=== PATIENT | female | born 1930 | race Caucasian/White ===

== ENCOUNTER 2017-11-19 15:38 | Inpatient (IN) | payer OTHER ==
[~2017-11-19] VITALS: Ht 157.5 cm; Wt 87.1 kg
[2017-11-19] MEDS ORDERED: SODIUM CHLORIDE 0.9% 1000ML 500 ML IV STA (16:02)
[2017-11-19] MEDS ORDERED: IPRATROPIUM BROMIDE NEB SOLN 0.02% 2.5 ML VIAL INH STA (16:02)
[2017-11-19] MEDS ORDERED: CEFTRIAXONE SOD INJ 1 GM ADDVIAL IV STA (16:02)
[2017-11-19] MEDS ORDERED: LEVALBUTEROL 1.25MG/0.5ML NEB INH STA (16:02)
[2017-11-19] MEDS ORDERED: METHYLPREDNISOLONE 125 MG VIAL IV STA (16:02)
[2017-11-19 16:15] LABS: BASO % 0.5 %; BASO ABS # 0.03 K/uL (0-0.2); EOS % 0.2 %; EOS ABS # 0.01 K/uL (0-0.5); HEMATOCRIT 43.2 % (37-47); HEMOGLOBIN 14.3 g/dL (12.0-16.0); IG# 0.03 K/uL (0.00-0.02); LYMPH % 30.1 %; LYMPH ABS # 1.91 K/uL (1.2-3.4); MEAN CELL VOLUME 92.3 fL (80-100); MEAN CORPUSCULAR HEMOGLOBIN 30.6 pg (25-34); MEAN CORPUSCULAR HGB CONC 33.1 g/dl (32-36); MEAN PLATELET VOLUME 10.3 fL (7.4-10.4); MONO % 15.4 %; MONO ABS # 0.98 K/uL (0.11-0.59); NEUT % 53.3 %; NEUT ABS # 3.39 K/uL (1.4-6.5); PLATELET COUNT 287 K/uL (130-400); RED CELL DISTRIBUTION WIDTH CV 13.2 % (11.5-14.5); RED CELL DISTRIBUTION WIDTH SD 44.3 fL (36.4-46.3); WHITE BLOOD COUNT 6.35 K/uL (4.8-10.8)
--- NOTE | 2017-11-19 16:16 | EMERGENCY ROOM VISIT NOTE ---
History Report prepared by Benito: Cole Gaitan Under the Supervision of: Dr. Kamran Haskins M.D. First contact with patient: 15:57 Chief Complaint: SHORTNESS OF BREATH Stated Complaint: SOB History of Present Illness This HPI is limited secondary to the dementia of the patient. The patient is an 87 year old female who presents to the Emergency Room with complaints of worsening shortness of breath that began 1 week ago. Per the patient's daughter , she became unusually short of breath 1 week ago and began to wheeze significantly this past Wednesday, 3 days ago. She has also had a wet cough, but she is not able to bring any mucous up. She has experienced two falling episodes in the past week, one of which was witnessed by the daughter who notes she hit the back of her head on the ground. The patient was at [facility] for a visit today, when the heard about the falls and worsening shortness of breath they suggested she come to the ED for further testing. She did receive a Nebulizer breathing treatment at this visit. The patient lives with the daughter who does not feel she is safe to go home today. The daughter denies ever being told the patient has atrial fibrillation. 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 A total of 10 systems reviewed and were otherwise negative. Past Medical & Surgical Medical Problems: (1) Dementia (2) Depression Dementia Family History Omitted Secondary to Age Social History Smoking Status: Former Smoker Drug Use: none Housing Status: lives with family Occupation Status: unemployed Current/Historical Medications Scheduled Aspirin (Aspirin Ec), 81 MG PO DAILY Atenolol (Tenormin), 25 MG PO DAILY Buspirone Hcl (Buspirone Hcl), 10 MG PO BID Citalopram Hydrobromide (Citalopram Hydrobromide), 1 TAB PO DAILY Donepezil Hydrochloride (Aricept), 10 MG PO DAILY Lisinopril (Zestril), 2.5 MG PO DAILY Triamterene/Hctz (Triamterene/Hctz 37.5-25MG), 1 TAB PO 5XWK Scheduled PRN Acetaminophen (Tylenol), 1,000 MG PO BID PRN for Pain Alprazolam (Xanax), 0.5 MG PO BID PRN for Anxiety Allergies Coded Allergies: No Known Allergies (Unverified , 11/19/17) Physical Exam Vital Signs Date Time Temp Pulse Resp B/P (MAP) Pulse Ox O2 Delivery O2 Flow Rate FiO2 11/19/17 20:50 84 20 180/78 94 Room Air 11/19/17 18:56 76 24 164/88 94 Room Air 11/19/17 17:16 70 22 168/53 97 Room Air 11/19/17 16:33 76 18 96 Room Air 11/19/17 16:32 96 Room Air 11/19/17 16:30 93 Room Air 11/19/17 16:12 73 11/19/17 16:02 Room Air 11/19/17 15:41 37.0 78 20 157/72 95 Room Air Physical Exam GENERAL: Patient is in no acute distress. HEENT: No acute trauma, normocephalic atraumatic, mucous membranes moist, no nasal congestion, no scleral icterus. NECK: No stridor, no adenopathy, no meningismus, trachea is midline. LUNGS: There is wheezing and crackles bilaterally with diminished breath sounds throughout. Breath sounds are equal. There is no respiratory distress. HEART: The patient has an irregularly irregular rhythm without murmurs. Rate is normal. ABDOMEN: Soft, nontender, bowel sounds positive, no hernias, no peritonitis. EXTREMITIES: No cyanosis or edema, full range of motion of all the joints without pain or difficulty, no signs for acute trauma. NEUROLOGIC: Mild dementia noted. no acute motor or sensory deficits, no focal weakness. SKIN: No rash, no jaundice, no diaphoresis. Medical Decision & Procedures ER Provider Diagnostic Interpretation: Radiology results as stated below per my review and radiologist interpretation: CHEST ONE VIEW PORTABLE CLINICAL HISTORY: 87 years-old Female presenting with EVALUATE ALTERED MENTAL STATUS/WEAKNESS. TECHNIQUE: Portable upright AP view of the chest was obtained. COMPARISON: None. FINDINGS: Atherosclerosis of aortic arch. Cardiac silhouette enlarged. Lungs and pleural spaces clear. Multiple old left rib fractures noted. Osteopenia may be present. IMPRESSION: 1. Cardiomegaly. Otherwise no acute cardiopulmonary disease. Electronically signed by: Jaquan Cat M.D. 11/19/2017 4:38 PM Dictated Date/Time: 11/19/2017 4:36 PM . HEAD WITHOUT CONTRAST (CT) CLINICAL HISTORY: 87 years-old Female presenting with EVALUATE ALTERED MENTAL STATUS/WEAKNESS. TECHNIQUE: Multidetector CT imaging of the head was performed without the use of intravenous contrast. IV contrast: None. A dose lowering technique was used consistent with the principles of ALARA (as low as reasonably achievable). COMPARISON: None. CT DOSE (mGy.cm): The estimated cumulative dose is 537.48 mGy.cm. FINDINGS: Motion Picture Actor topogram: Unremarkable. Proportional ventricular and sulcal prominence, likely age-related parenchymal volume loss. Periventricular and subcortical white matter hypoattenuation, nonspecific but likely indicative of chronic small vessel ischemic change. 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 No mass effect or midline shift. No hemorrhage or acute territorial infarct. No extra-axial fluid collection. Mild mucosal thickening in the ethmoid air cells. Calvarium intact. Left council lens is absent. IMPRESSION: 1. Chronic small vessel ischemic change. No acute intracranial abnormality. Electronically signed by: Jaquna Cat M.D. 11/19/2017 5:14 PM Dictated Date/Time: 11/19/2017 5:10 PM Laboratory Results 11/19/17 16:00 Red Blood Count 4.68, Mean Corpuscular Volume 92.3, Mean Corpuscular Hemoglobin 30.6, Mean Corpuscular Hemoglobin Concent 33.1, Mean Platelet Volume 10.3, Neutrophils (%) (Auto) 53.3, Lymphocytes (%) (Auto) 30.1, Monocytes (%) (Auto) 15.4, Eosinophils (%) (Auto) 0.2, Basophils (%) (Auto) 0.5, Neutrophils # (Auto ) 3.39, Lymphocytes # (Auto) 1.91, Monocytes # (Auto) 0.98, Eosinophils # (Auto ) 0.01, Basophils # (Auto) 0.03 11/19/17 16:00 Test 11/19/17 16:00 11/19/17 16:28 11/19/17 16:51 White Blood Count 6.35 K/uL (4.8-10.8) Red Blood Count 4.68 M/uL (4.2-5.4) Hemoglobin 14.3 g/dL (12.0-16.0) Hematocrit 43.2 % (37-47) Mean Corpuscular Volume 92.3 fL (80-100) Mean Corpuscular Hemoglobin 30.6 pg (25-34) Mean Corpuscular Hemoglobin Concent 33.1 g/dl (32-36) Platelet Count 287 K/uL (130-400) Mean Platelet Volume 10.3 fL (7.4-10.4) Neutrophils (%) (Auto) 53.3 % Lymphocytes (%) (Auto) 30.1 % Monocytes (%) (Auto) 15.4 % Eosinophils (%) (Auto) 0.2 % Basophils (%) (Auto) 0.5 % Neutrophils # (Auto) 3.39 K/uL (1.4-6.5) Lymphocytes # (Auto) 1.91 K/uL (1.2-3.4) Monocytes # (Auto) 0.98 K/uL (0.11-0.59) Eosinophils # (Auto) 0.01 K/uL (0-0.5) Basophils # (Auto) 0.03 K/uL (0-0.2) RDW Standard Deviation 44.3 fL (36.4-46.3) RDW Coefficient of Variation 13.2 % (11.5-14.5) Immature Granulocyte % (Auto) 0.5 % Immature Granulocyte # (Auto) 0.03 K/uL (0.00-0.02) Prothrombin Time 10.0 SECONDS (9.0-12.0) Prothromb Time International Ratio 1.0 (0.9-1.1) Activated Partial Thromboplast Time 28.4 SECONDS (21.0-31.0) Partial Thromboplastin Ratio 1.1 Anion Gap 9.0 mmol/L (3-11) Est Creatinine Clear Calc Drug Dose 16.8 ml/min Estimated GFR () 20.2 Estimated GFR (Non- 17.4 BUN/Creatinine Ratio 14.4 (10-20) Calcium Level 8.5 mg/dl (8.5-10.1) Magnesium Level 2.3 mg/dl (1.8-2.4) Total Bilirubin 0.3 mg/dl (0.2-1) Aspartate Amino Transf (AST/SGOT) 28 U/L (15-37) Alanine Aminotransferase (ALT/SGPT) 23 U/L (12-78) Alkaline Phosphatase 72 U/L (45-117) Total Creatine Kinase 157 U/L (26-192) Troponin I < 0.015 ng/ml (0-0.045) Total Protein 8.3 gm/dl (6.4-8.2) Albumin 3.5 gm/dl (3.4-5.0) Globulin 4.8 gm/dl (2.5-4.0) Albumin/Globulin Ratio 0.7 (0.9-2) Thyroid Stimulating Hormone (TSH) 2.000 uIu/ml (0.300-4.500) Influenza Type A Antigen Neg for Influ A (NEG) Influenza Type B Antigen Neg for Influ B (NEG) Urine Color DK YELLOW Urine Appearance CLOUDY (CLEAR) Urine pH 5.0 (4.5-7.5) Urine Specific Beatrice 1.026 (1.000-1.030) Urine Protein 1+ (NEG) Urine Glucose (UA) NEG (NEG) Urine Ketones TRACE (NEG) Urine Occult Blood NEG (NEG) Urine Nitrite NEG (NEG) Urine Bilirubin NEG (NEG) Urine Urobilinogen NEG (NEG) Urine Leukocyte Esterase NEG (NEG) Urine WBC (Auto) 1-5 /hpf (0-5) Urine RBC (Auto) 0-4 /hpf (0-4) Urine Hyaline Casts (Auto) 10-30 /lpf (0-5) Urine Epithelial Cells (Auto) >30 /lpf (0-5) Urine Bacteria (Auto) NEG (NEG) Urine Renal Epithelial Cells 0-5 /lpf (0-5) Laboratory results reviewed by me. Medications Administered Medications (Trade) Dose Ordered Sig/Dotty Route Start Time Stop Time Status Last Admin Dose Admin Sodium Chloride 500 ml @ 999 mls/hr Q31M STAT IV 11/19/17 16:02 11/19/17 16:32 DC 11/19/17 16:02 999 MLS/HR Levalbuterol (Xopenex 1.25MG/ 0.5ML Neb) 1.25 mg NOW STAT INH 11/19/17 16:02 11/19/17 16:06 DC 11/19/17 16:02 1.25 MG Ipratropium Kerman (Atrovent 0.02% 0.5MG/2.5ML Neb) 0.5 mg NOW STAT INH 11/19/17 16:02 11/19/17 16:07 DC 11/19/17 16:26 0.5 MG Methylprednisolone Sodium Succinate (Solu-Medrol IV) 60 mg NOW STAT IV 11/19/17 16:02 11/19/17 16:07 DC 11/19/17 16:26 60 MG Ceftriaxone Sodium (Rocephin Inj) 1 gm NOW STAT IV 11/19/17 16:02 11/19/17 16:07 DC 11/19/17 16:26 1 GM Potassium Chloride (Klor-Con M10) 40 meq NOW STAT PO 11/19/17 16:38 11/19/17 16:40 DC 11/19/17 17:12 40 MEQ Sodium Chloride 500 ml @ 999 mls/hr Q31M STAT IV 11/19/17 16:39 11/19/17 17:09 DC 11/19/17 17:12 999 MLS/HR ECG Indication: SOB/dyspnea Rate (beats per minute): 73 Rhythm: atrial fibrillation Findings: nonspecific-ST abn, RBBB, no acute ischemic change Comparison ECG Date: no prior available Change: Patient's electrocardiogram per my interpretation. ED Course 1557: The patient was evaluated in room B8. A complete history and physical exam was performed. 1602: Ordered Rocephin 1 gm IV, Solu-Medrol IV 60 mh IV, Ipratropium Kerman 0.5 mg INH, Levaluterol 1.25 mg INH, Sodium Chloride 500 mL @ 999 mL/hr IV. 1638: Ordered Potassium Chloride 40 meq PO, Sodium Chloride 500 mL @ 999 mL/hr IV. 1731: I discussed the case with Gabriela Moore PA-C. She will evaluate the patient for further treatment. 1735: I reevaluated the patient at this time. Her and her daughter are agreeable to admission. Medical Decision Differential Diagnosis includes; intracranial bleed, skull fracture, dehydration , electrolyte imbalance, anemia, UTI, bronchitis, pneumonia, CHF, influenza, new onset atrial fibrillation. There is no leukocytosis or concerning anemia. Renal panel testing shows a high creatinine at 2.4, she has a low potassium at 2.7. There was no hepatitis. No coagulopathy. The patient appears to be in a euthyroid state. EKG shows A. fib with a right bundle-branch block, no acute ischemia. Cardiac enzyme testing times one is not consistent with acute cardiac injury. Of note, the A. fib noted today may be new-the family has no recollection of hearing the term atrial fibrillation or A. fib before. Brain CT shows no acute bleed or mass effect. Chest x-ray does not show pneumonia or CHF. Influenza testing was negative. The patient presents with cough, congestion and wheezing. She is weak and has fallen a few times. She is in no condition to be discharged home. The patient was given a Xopenex Atrovent neb, IV Solu-Medrol, IV ceftriaxone. She received IV saline. The patient received a dose of oral potassium. Admission/observation is warranted, I talked to the family, I spoke with case management. The on-call hospitalist was consulted. Head Trauma GCS Score: 14 Medication Reconcilliation Current Medication List: was personally reviewed by me Blood Pressure Screening Patient's blood pressure: Elevated blood pressure Referred to Hospitalist Consults Time Called: 1728 Consulting Physician: Gabriela Moore PA-C Returned Call: 1731 I discussed the case with Gabriela Moore PA-C. She will evaluate the patient for further treatment. Impression Primary Impression: Acute bronchitis Additional Impressions: SOB (shortness of breath) Falling Head trauma Dehydration Hypokalemia Atrial fibrillation Scribe Attestation The scribe's documentation has been prepared under my direction and personally reviewed by me in its entirety. I confirm that the note above accurately reflects all work, treatment, procedures, and medical decision making performed by me. Departure Information Dispostion Being Evaluated By Hospitalist Referrals Josselyn REARDON M.D. (PCP) Patient Instructions My [facility] Problem Qualifiers
[2017-11-19 16:33] VITALS: PULSE 76; O2SAT 96
[2017-11-19 16:33] LABS: PTT PATIENT 28.4 SECONDS (21.0-31.0)
[2017-11-19] MEDS ORDERED: LISI-789 PO (16:34)
[2017-11-19] MEDS ORDERED: ATEN-173 PO (16:34)
[2017-11-19] MEDS ORDERED: ACET-1256 PO (16:34)
[2017-11-19] MEDS ORDERED: CITA20TA4 PO (16:34)
[2017-11-19] MEDS ORDERED: TRIATAB3 PO (16:34)
[2017-11-19] MEDS ORDERED: DONE10TA12 PO (16:34)
[2017-11-19] MEDS ORDERED: BUSP-8 PO (16:34)
[2017-11-19] MEDS ORDERED: ASPI81TA28 PO (16:34)
[2017-11-19] MEDS ORDERED: ALPR-411 PO (16:34)
[2017-11-19 16:37] LABS: ALBUMIN 3.5 gm/dl (3.4-5.0); ALT/SGPT 23 U/L (12-78); AST/SGOT 28 U/L (15-37); BLOOD UREA NITROGEN 35 mg/dl (7-18); CALCIUM 8.5 mg/dl (8.5-10.1); CARBON DIOXIDE 27 mmol/L (21-32); CREATININE 2.42 mg/dl (0.60-1.20); GLUCOSE 102 mg/dl (70-99); POTASSIUM 2.7 mmol/L (3.5-5.1); SODIUM 132 mmol/L (136-145)
[2017-11-19] MEDS ORDERED: POTASSIUM CHLORIDE 10 MEQ TABCR PO STA (16:38)
[2017-11-19] MEDS ORDERED: SODIUM CHLORIDE 0.9% 500ML 500 ML IV STA (16:39)
--- NOTE | 2017-11-19 16:39 | DIAGNOSTIC IMAGING REPORT ---
CHEST ONE VIEW PORTABLE CLINICAL HISTORY: 87 years-old Female presenting with EVALUATE ALTERED MENTAL STATUS/WEAKNESS. TECHNIQUE: Portable upright AP view of the chest was obtained. COMPARISON: None. FINDINGS: Atherosclerosis of aortic arch. Cardiac silhouette enlarged. Lungs and pleural spaces clear. Multiple old left rib fractures noted. Osteopenia may be present. IMPRESSION: 1. Cardiomegaly. Otherwise no acute cardiopulmonary disease. Electronically signed by: Jaquan Cat M.D. 11/19/2017 4:38 PM Dictated Date/Time: 11/19/2017 4:36 PM
[2017-11-19 16:47] LABS: ALKALINE PHOSPHATASE 72 U/L (45-117); TOTAL PROTEIN 8.3 gm/dl (6.4-8.2)
[2017-11-19 17:01] LABS: INFLUENZA B ANTIGEN Neg for Influ B (NEG)
--- NOTE | 2017-11-19 17:15 | DIAGNOSTIC IMAGING REPORT ---
HEAD WITHOUT CONTRAST (CT) CLINICAL HISTORY: 87 years-old Female presenting with EVALUATE ALTERED MENTAL STATUS/WEAKNESS. TECHNIQUE: Multidetector CT imaging of the head was performed without the use of intravenous contrast. IV contrast: None. A dose lowering technique was used consistent with the principles of ALARA (as low as reasonably achievable). COMPARISON: None. CT DOSE (mGy.cm): The estimated cumulative dose is 537.48 mGy.cm. 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 Proportional ventricular and sulcal prominence, likely age-related parenchymal volume loss. Periventricular and subcortical white matter hypoattenuation, nonspecific but likely indicative of chronic small vessel ischemic change. 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 No mass effect or midline shift. No hemorrhage or acute territorial infarct. No extra-axial fluid collection. Mild mucosal thickening in the ethmoid air cells. Calvarium intact. Left yocha dehe lens is absent. IMPRESSION: 1. Chronic small vessel ischemic change. No acute intracranial abnormality. Electronically signed by: Jaquan Cat M.D. 11/19/2017 5:14 PM Dictated Date/Time: 11/19/2017 5:10 PM
[2017-11-19] MEDS ORDERED: ACETAMINOPHEN 325 MG TAB PO PRN (20:00)
[2017-11-19] MEDS: ALBUT/IPRATROP 3MG/0.5MG NEB 3 ML VIAL INH SCH (20:00)
[2017-11-19] MEDS ORDERED: ALPRAZOLAM 0.5 MG TAB PO PRN (20:00)
[2017-11-19] MEDS ORDERED: ACETAMINOPHEN 500 MG TAB PO PRN (20:00)
[2017-11-19] MEDS ORDERED: POTASSIUM CHLORIDE 20 MEQ TABCR PO STA (20:43)
--- NOTE | 2017-11-19 20:45 | History and Physical ---
History & Physical Date & Time of Service: Nov 19, 2017 at 20:06 Chief Complaint: SOB Primary Care Physician: Josselyn REARDON M.D. History of Present Illness Source: patient, clinic records, hospital records This is an 87 year old female with a PMH of dementia, depression/anxiety, HTN, CKD stage 3 - presented to the urgent care facility at [facility] due to patient' s daughter bringing her in with a cough/chest congestion. Patient and daughter live together and as per records, they do not get along. As per clinic records, patient is more depressed than usual and she is falling more often. Records indicate that the patient was sent to the ER for a head CT due to multiple falls as well as a psychiatric evaluation. During my exam, patient states that she is doing fine, does not know why she is being forced to come to the hospital by her daughter. Unfortunately, daughter is not in the room for a history. Patient states she has some congestion, but feels fine overall. Denies depression or suicidal ideation. Geriatric Assessment Lives with - daughter Ambulation - on her own Incontinence - denies incontinence, though records indicate she has incontinence Family Support - daughter Nutrition - no issues with food, cooks on her own Mental Status - underlying dementia Depression - worsening depression as per family ADLs - performs her own ADLs Past Medical/Surgical History Medical Problems: (1) Dementia Status: Chronic Social History Smoking Status: Former Smoker Drug Use: none Occupational Status: unemployed Multi-Drug Resistant Organisms History of MDRO: No Allergies Coded Allergies: No Known Allergies (Unverified , 11/19/17) Home Medications Scheduled Aspirin (Aspirin Ec), 81 MG PO DAILY Atenolol (Tenormin), 25 MG PO DAILY Buspirone Hcl (Buspirone Hcl), 10 MG PO BID Citalopram Hydrobromide (Citalopram Hydrobromide), 1 TAB PO DAILY Donepezil Hydrochloride (Aricept), 10 MG PO DAILY Lisinopril (Zestril), 2.5 MG PO DAILY Triamterene/Hctz (Triamterene/Hctz 37.5-25MG), 1 TAB PO 5XWK Scheduled PRN Acetaminophen (Tylenol), 1,000 MG PO BID PRN for Pain Alprazolam (Xanax), 0.5 MG PO BID PRN for Anxiety Review of Systems Constitutional: No fever, No chills, No weakness, No fatigue Respiratory: + cough, + sputum, No wheezing, No shortness of breath, No dyspnea on exertion, No dyspnea at rest, No hemoptysis Cardiovascular: No chest pain, No edema, No palpitations Abdomen: No pain, No nausea, No vomiting, No diarrhea, No constipation, No GI bleeding Musculoskeletal: No joint pain, No muscle pain Genitourinary - Female: No dysuria, No urinary frequency, No urinary urgency, No urinary incontinence, No urinary retention, No hematuria Neurologic: No memory loss, No paralysis, No weakness, No numbness/tingling, No balance problems Psychiatric: No depression symptoms, No anxiety, No insomnia Endocrine: No fatigue Hematologic / Lymphatic: No abnormal bleeding/bruising Integumentary: No rash Allergic / Immunologic: No environmental allergies, No seasonal allergies Physical Exam Vital Signs Date Time Temp Pulse Resp B/P (MAP) Pulse Ox O2 Delivery O2 Flow Rate FiO2 11/19/17 18:56 76 24 164/88 94 Room Air 11/19/17 17:16 70 22 168/53 97 Room Air 11/19/17 16:33 76 18 96 Room Air 11/19/17 16:32 96 Room Air 11/19/17 16:30 93 Room Air 11/19/17 16:12 73 11/19/17 16:02 Room Air 11/19/17 15:41 37.0 78 20 157/72 95 Room Air General Appearance: no apparent distress, + obese, + pertinent finding (mild underlying dementia noted during exam) Head: normocephalic, atraumatic Eyes: normal inspection ENT: + pertinent finding (+hard of hearing) Neck: supple Respiratory/Chest: no respiratory distress, no accessory muscle use, + rhonchi Cardiovascular: no murmur, + irregularly irregular (regular rate) Abdomen/GI: normal bowel sounds, non tender, soft Extremities/Musculoskelatal: normal capillary refill, no pedal edema Neurologic/Psych: 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 II-XII nml as tested, no motor/sensory deficits, alert, normal mood/affect, + disoriented Skin: normal color Lymphatic: no adenopathy Diagnostics Laboratory Results Results Past 24 Hours Test 11/19/17 16:00 11/19/17 16:28 11/19/17 16:51 Range/Units White Blood Count 6.35 4.8-10.8 K/uL Red Blood Count 4.68 4.2-5.4 M/uL Hemoglobin 14.3 12.0-16.0 g/dL Hematocrit 43.2 37-47 % Mean Corpuscular Volume 92.3 80-100 fL Mean Corpuscular Hemoglobin 30.6 25-34 pg Mean Corpuscular Hemoglobin Concent 33.1 32-36 g/dl Platelet Count 287 130-400 K/uL Mean Platelet Volume 10.3 7.4-10.4 fL Neutrophils (%) (Auto) 53.3 % Lymphocytes (%) (Auto) 30.1 % Monocytes (%) (Auto) 15.4 % Eosinophils (%) (Auto) 0.2 % Basophils (%) (Auto) 0.5 % Neutrophils # (Auto) 3.39 1.4-6.5 K/uL Lymphocytes # (Auto) 1.91 1.2-3.4 K/uL Monocytes # (Auto) 0.98 0.11-0.59 K/uL Eosinophils # (Auto) 0.01 0-0.5 K/uL Basophils # (Auto) 0.03 0-0.2 K/uL RDW Standard Deviation 44.3 36.4-46.3 fL RDW Coefficient of Variation 13.2 11.5-14.5 % Immature Granulocyte % (Auto) 0.5 % Immature Granulocyte # (Auto) 0.03 0.00-0.02 K/uL Prothrombin Time 10.0 9.0-12.0 SECONDS Prothromb Time International Ratio 1.0 0.9-1.1 Activated Partial Thromboplast Time 28.4 21.0-31.0 SECONDS Partial Thromboplastin Ratio 1.1 Sodium Level 132 136-145 mmol/L Potassium Level 2.7 3.5-5.1 mmol/L Chloride Level 96 98-107 mmol/L Carbon Dioxide Level 27 21-32 mmol/L Anion Gap 9.0 3-11 mmol/L Blood Urea Nitrogen 35 7-18 mg/dl Creatinine 2.42 0.60-1.20 mg/dl Est Creatinine Clear Calc Drug Dose 16.8 ml/min Estimated GFR () 20.2 Estimated GFR (Non- 17.4 BUN/Creatinine Ratio 14.4 10-20 Random Glucose 102 70-99 mg/dl Calcium Level 8.5 8.5-10.1 mg/dl Magnesium Level 2.3 1.8-2.4 mg/dl Total Bilirubin 0.3 0.2-1 mg/dl Aspartate Amino Transf (AST/SGOT) 28 15-37 U/L Alanine Aminotransferase (ALT/SGPT) 23 12-78 U/L Alkaline Phosphatase 72 45-117 U/L Total Creatine Kinase 157 26-192 U/L Troponin I < 0.015 0-0.045 ng/ml Total Protein 8.3 6.4-8.2 gm/dl Albumin 3.5 3.4-5.0 gm/dl Globulin 4.8 2.5-4.0 gm/dl Albumin/Globulin Ratio 0.7 0.9-2 Thyroid Stimulating Hormone (TSH) 2.000 0.300-4.500 uIu/ml Influenza Type A Antigen Neg for Influ A NEG Influenza Type B Antigen Neg for Influ B NEG Urine Color DK YELLOW Urine Appearance CLOUDY CLEAR Urine pH 5.0 4.5-7.5 Urine Specific [place] 1.026 1.000-1.030 Urine Protein 1+ NEG Urine Glucose (UA) NEG NEG Urine Ketones TRACE NEG Urine Occult Blood NEG NEG Urine Nitrite NEG NEG Urine Bilirubin NEG NEG Urine Urobilinogen NEG NEG Urine Leukocyte Esterase NEG NEG Urine WBC (Auto) 1-5 0-5 /hpf Urine RBC (Auto) 0-4 0-4 /hpf Urine Hyaline Casts (Auto) 10-30 0-5 /lpf Urine Epithelial Cells (Auto) >30 0-5 /lpf Urine Bacteria (Auto) NEG NEG Urine Renal Epithelial Cells 0-5 0-5 /lpf Microbiology Results 11/19/17 Blood Culture, Received Pending 11/19/17 Blood Culture, Received Pending Diagnostic Radiology HEAD WITHOUT CONTRAST (CT) CLINICAL HISTORY: 87 years-old Female presenting with EVALUATE ALTERED MENTAL STATUS/WEAKNESS. TECHNIQUE: Multidetector CT imaging of the head was performed without the use of intravenous contrast. IV contrast: None. A dose lowering technique was used consistent with the principles of ALARA (as low as reasonably achievable). COMPARISON: None. CT DOSE (mGy.cm): The estimated cumulative dose is 537.48 mGy.cm. 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 Proportional ventricular and sulcal prominence, likely age-related parenchymal volume loss. Periventricular and subcortical white matter hypoattenuation, nonspecific but likely indicative of chronic small vessel ischemic change. 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 No mass effect or midline shift. No hemorrhage or acute territorial infarct. No extra-axial fluid collection. Mild mucosal thickening in the ethmoid air cells. Calvarium intact. Left [place] lens is absent. IMPRESSION: 1. Chronic small vessel ischemic change. No acute intracranial abnormality. CHEST ONE VIEW PORTABLE CLINICAL HISTORY: 87 years-old Female presenting with EVALUATE ALTERED MENTAL STATUS/WEAKNESS. TECHNIQUE: Portable upright AP view of the chest was obtained. COMPARISON: None. FINDINGS: Atherosclerosis of aortic arch. Cardiac silhouette enlarged. Lungs and pleural spaces clear. Multiple old left rib fractures noted. Osteopenia may be present. IMPRESSION: 1. Cardiomegaly. Otherwise no acute cardiopulmonary disease. EKG Atrial fibrillation Right bundle branch block Impression Assessment and Plan This is an 87 year old female with a PMH of dementia, depression/anxiety, HTN, CKD stage 3 presented with multiple falls, cough, congestion Multiple Falls unsure of the cause; patient is denying any falls Head CT negative will obtain PT/OT discharge planning evaluation may need placement? will need to talk to daughter New Onset Atrial Fibrillation patient is currently in A. Fib, do not see this in her records previous EKG shows sinus bradycardia with first degree AV block for now, will continue atenolol, which is controlling her rates cannot anticoagulate due to concern about multiple falls Acute Kidney Injury superimposed on CKD stage 3 baseline creatinine is closer to 1.1-1.2 creatinine on admission = 2.54 will add IVFs, recheck creatinine in AM Depression/Anxiety worsening depression as per patient's daughter (see clinic notes) takes Xanax, BuSpar, and Celexa I will increase the Celexa dose to 40mg daily consulted mental health for further help she is denying suicidal ideation at this time Acute Bronchitis, possibly viral patient with rhonchi on exam, cough, congestion rapid flu negative; CXR with no acute findings will start doxy to cover any superimposed bacterial infection prednisone 40mg for any inflammation for a short course nebulizers as needed Hypokalemia replaced K recheck in AM, check Mg Dementia continue Aricept HTN hold Lisinopril due to SUMMER continue Atenolol DVT ppx Lovenox DNR VTE Prophylaxis VTE Risk Assessment Done? Y/N: Yes Risk Level: Moderate
[2017-11-19 22:00] VITALS: BP 198/82; PULSE 52; TEMP 37.1; O2SAT 94
[2017-11-19 22:10] VITALS: O2SAT 94; Ht 157.5 cm; Wt 87.1 kg
[2017-11-19] MEDS: SODIUM CHLORIDE 0.9% 1000ML 1,000 ML IV SCH (22:16)
[2017-11-19] MEDS ORDERED: AMLODIPINE BESYLATE 5 MG TAB PO ONE (22:30)
[2017-11-19] MEDS: ENOXAPARIN 30 MG/0.3 ML SYR SQ SCH (22:44)
[2017-11-19] MEDS: DOXYCYCLINE HYCLATE 100 MG CAP PO SCH (22:45)
[2017-11-19] MEDS ORDERED: IV FLUIDS COMPLETED PRN (23:45)
[2017-11-19 23:59] VITALS: BP 198/85; PULSE 71; TEMP 36.7; O2SAT 93
[2017-11-20] VITALS (9 sets, daily range): BP systolic 129–205; BP diastolic 58–108; PULSE 58–78; TEMP 36.4–37; O2SAT 92–99
[2017-11-20] MEDS: SODIUM CHLORIDE 0.9% 1000ML 1,000 ML IV SCH ×2 (05:59→16:52)
[2017-11-20 06:17] LABS: HEMATOCRIT 37.6 % (37-47); HEMOGLOBIN 12.5 g/dL (12.0-16.0); MEAN CELL VOLUME 90.8 fL (80-100); MEAN CORPUSCULAR HEMOGLOBIN 30.2 pg (25-34); MEAN CORPUSCULAR HGB CONC 33.2 g/dl (32-36); MEAN PLATELET VOLUME 10.1 fL (7.4-10.4); PLATELET COUNT 253 K/uL (130-400); RED CELL DISTRIBUTION WIDTH CV 13.2 % (11.5-14.5); RED CELL DISTRIBUTION WIDTH SD 43.8 fL (36.4-46.3); WHITE BLOOD COUNT 3.72 K/uL (4.8-10.8)
[2017-11-20 06:57] LABS: CALCIUM 8.5 mg/dl (8.5-10.1); CREATININE 1.72 mg/dl (0.60-1.20)
[2017-11-20] MEDS: ALBUT/IPRATROP 3MG/0.5MG NEB 3 ML VIAL INH SCH ×4 (07:24→19:41)
[2017-11-20] MEDS: CITALOPRAM 40 MG TAB PO SCH (08:14)
[2017-11-20] MEDS: ASPIRIN 81 MG ECTAB PO SCH (08:14)
[2017-11-20] MEDS: DOXYCYCLINE HYCLATE 100 MG CAP PO SCH (08:14)
[2017-11-20] MEDS: DONEPEZIL HCL 10 MG TAB PO SCH (08:14)
[2017-11-20] MEDS ORDERED: TRIAMTERENE/HCTZ 37.5/25MG TAB PO SCH (09:00)
[2017-11-20] MEDS ORDERED: LISINOPRIL 2.5 MG TAB PO SCH (09:00)
--- NOTE | 2017-11-20 09:21 | Psychiatric Consultation ---
Consultation Date of Consultation Nov 20, 2017. Identifying Data Rosita Ingram is a 87-year-old female admitted to the medical floor for cough and chest congestion. Pt has a PMH of dementia, depression/anxiety, HTN, CKD stage 3. Psychiatric consult requested due to worsening of depression. Chief Complaint "You get old, it gets boring". History of Present Illness Rosita Ingram is a 87-year-old female who was brought to the ED by her daughter for concerns regarding cough and chest congestion. Pt was admitted to the medical floor. Pt is seen on psychiatric consult service due to reported concerns from the patient's daughter about worsening of depression. HPI of the patient is limited due to level of dementia and patient reporting losing her hearing aids. Pt's ability to participate in obtaining history hindered significantly by hearing loss. Pt states she does not feel she has been depressed. She reports "you know, you get old, it gets boring". She states she does have increased frequently of remaining in bed, but reports she enjoys the time she spend there "cuddling with my dog". Pt is a poor historian with regard to medications, but feels that Celexa has been beneficial for her mood in the past. She denies awareness of medications taken for anxiety. Pt appears euthymic and states "I'm ready to get better so I can go home to my puppy." She denies suicidal ideation. PHQ-9 completed with a score of 0. From limited history, patient does not report depressive symptoms. Would be beneficial to gain collateral information from the patient's daughter to better assess history and more accurately manage concerns. Past Psychiatric History Current OP Treatment: no current treatment (PCP for medications) Prior OP Treatment: no prior treatment Prior Psych Hospitalizations: other (unable to assess) Past Medical/Surgical History History of Concussion/Seizure: Yes (head trauma from frequent falls) Allergies Allergies: Coded Allergies: No Known Allergies (Unverified , 11/19/17) Home Medications Scheduled Aspirin (Aspirin Ec), 81 MG PO DAILY Atenolol (Tenormin), 25 MG PO DAILY Buspirone Hcl (Buspirone Hcl), 10 MG PO BID Citalopram Hydrobromide (Citalopram Hydrobromide), 1 TAB PO DAILY Donepezil Hydrochloride (Aricept), 10 MG PO DAILY Lisinopril (Zestril), 2.5 MG PO DAILY Triamterene/Hctz (Triamterene/Hctz 37.5-25MG), 1 TAB PO 5XWK Scheduled PRN Acetaminophen (Tylenol), 1,000 MG PO BID PRN for Pain Alprazolam (Xanax), 0.5 MG PO BID PRN for Anxiety Smoking Use Smoking Status: Former Smoker Personal History Lives in: [place] with her daughter 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 Review of Systems Psych: denies symptoms other than stated above Constitutional: denied Cardiovascular: denied GI: denied Neurologic: denied Remainder of 10 body systems also reviewed and denied other than noted above. Examination Vital Signs Vital Signs Past 12 Hours Date Time Temp Pulse Resp B/P (MAP) Pulse Ox O2 Delivery O2 Flow Rate FiO2 11/20/17 07:52 Room Air 11/20/17 07:24 78 18 99 Room Air 11/20/17 07:16 37.0 60 20 129/58 (81) 92 Room Air 11/20/17 05:00 64 170/70 (103) 11/19/17 23:59 36.7 71 20 198/85 (122) 93 Room Air 11/19/17 23:45 Room Air 11/19/17 22:10 94 Room Air 11/19/17 22:00 37.1 52 20 198/82 (120) 94 Room Air Laboratory Results Last 24 Hours Test 11/19/17 16:00 11/19/17 16:28 11/19/17 16:51 11/20/17 05:50 White Blood Count 6.35 K/uL 3.72 K/uL Red Blood Count 4.68 M/uL 4.14 M/uL Hemoglobin 14.3 g/dL 12.5 g/dL Hematocrit 43.2 % 37.6 % Mean Corpuscular Volume 92.3 fL 90.8 fL Mean Corpuscular Hemoglobin 30.6 pg 30.2 pg Mean Corpuscular Hemoglobin Concent 33.1 g/dl 33.2 g/dl Platelet Count 287 K/uL 253 K/uL Mean Platelet Volume 10.3 fL 10.1 fL Neutrophils (%) (Auto) 53.3 % Lymphocytes (%) (Auto) 30.1 % Monocytes (%) (Auto) 15.4 % Eosinophils (%) (Auto) 0.2 % Basophils (%) (Auto) 0.5 % Neutrophils # (Auto) 3.39 K/uL Lymphocytes # (Auto) 1.91 K/uL Monocytes # (Auto) 0.98 K/uL Eosinophils # (Auto) 0.01 K/uL Basophils # (Auto) 0.03 K/uL RDW Standard Deviation 44.3 fL 43.8 fL RDW Coefficient of Variation 13.2 % 13.2 % Immature Granulocyte % (Auto) 0.5 % Immature Granulocyte # (Auto) 0.03 K/uL Prothrombin Time 10.0 SECONDS Prothromb Time International Ratio 1.0 Activated Partial Thromboplast Time 28.4 SECONDS Partial Thromboplastin Ratio 1.1 Sodium Level 132 mmol/L 134 mmol/L Potassium Level 2.7 mmol/L 4.0 mmol/L Chloride Level 96 mmol/L 102 mmol/L Carbon Dioxide Level 27 mmol/L 25 mmol/L Anion Gap 9.0 mmol/L 7.0 mmol/L Blood Urea Nitrogen 35 mg/dl 30 mg/dl Creatinine 2.42 mg/dl 1.72 mg/dl Est Creatinine Clear Calc Drug Dose 16.8 ml/min 23.6 ml/min Estimated GFR () 20.2 30.5 Estimated GFR (Non- 17.4 26.3 BUN/Creatinine Ratio 14.4 17.6 Random Glucose 102 mg/dl 108 mg/dl Calcium Level 8.5 mg/dl 8.5 mg/dl Magnesium Level 2.3 mg/dl 2.1 mg/dl Total Bilirubin 0.3 mg/dl Aspartate Amino Transf (AST/SGOT) 28 U/L Alanine Aminotransferase (ALT/SGPT) 23 U/L Alkaline Phosphatase 72 U/L Total Creatine Kinase 157 U/L Troponin I < 0.015 ng/ml Total Protein 8.3 gm/dl Albumin 3.5 gm/dl Globulin 4.8 gm/dl Albumin/Globulin Ratio 0.7 Thyroid Stimulating Hormone (TSH) 2.000 uIu/ml Influenza Type A Antigen Neg for Influ A Influenza Type B Antigen Neg for Influ B Urine Color DK YELLOW Urine Appearance CLOUDY Urine pH 5.0 Urine Specific [place] 1.026 Urine Protein 1+ Urine Glucose (UA) NEG Urine Ketones TRACE Urine Occult Blood NEG Urine Nitrite NEG Urine Bilirubin NEG Urine Urobilinogen NEG Urine Leukocyte Esterase NEG Urine WBC (Auto) 1-5 /hpf Urine RBC (Auto) 0-4 /hpf Urine Hyaline Casts (Auto) 10-30 /lpf Urine Epithelial Cells (Auto) >30 /lpf Urine Bacteria (Auto) NEG Urine Renal Epithelial Cells 0-5 /lpf Mental Examination During interview pt is: cooperative, other (Alert) Appearance: appropriately dressed (in hospital gown), appeared stated age Eye contact is: good Motor behavior is: no abnormal motor movements (observed while in hospital bed) Speech: normal in rate, rhythm & volume Affect: euthymic Mood is: other ("fine") Thought process: goal directed, circumstantial Thought content: reality based without delusions Suicidal thought are: denied Homicidal thoughts are: denied Hallucinations: other (unable to assess, does not appear to be responding to internal stimuli) Cognition: language grossly intact, other (cognitive impairments, memory impaired) Intelligence estimated to be: average Insight: limited Judgement: limited Impression / Recommendations Impression 87-year-old female with a history of depression and anxiety currently treated with buspirone 10mg BID, alprazolam 0.5mg BID, and a recent increase to 40mg of citalopram upon hospitalization. Difficult to obtain appropriate history from the patient and will therefore attempt to gain collateral information from the patient's daughter if possible. At this point, medication changes that have been made are appropriate per patient's reported symptoms. Will offer additional recommendations if changes once history from daughter is obtained. Would recommended limited use of alprazolam as can increase risk of falls and adverse outcomes in individuals over 65y/o. Pt does not appear to be anxious at encounter today and is unable to provide history on her use of alprazolam at home. Inventory Assets Strengths: support from daughter Needs: history of dementia Risk Factors Assessment : Yes /single/: Yes Mental Health Diagnoses: Yes Substance use disorders: No Protective Factors Assessment : No Responsible for young children: No Employed: No Recommendations (1) Depression - Would agree with medication changes already put in place. Increasing citalopram is an appropriate plan. Will offer additional assistance as we are able to obtain more history from the patient's daughter. - Would recommend limited alprazolam prn use due to fall risk in patient's over 65 y/o as well as potential to worsen any breathing concerns. - Appreciate the opportunity to be involved in the care of this patient. Dr. Lewis has personally been involved in the review of the above case and development of recommendations.
[2017-11-20 17:14] LABS: INFLUENZA B PCR Neg for Influ B (NEG)
[2017-11-20] MEDS ORDERED: HydrALAZINE HCL 20 MG/ML VIAL IV. PRN ×2 (17:15→17:45)
--- NOTE | 2017-11-20 17:15 | Progress Note ---
Medicine Progress Note Date & Time of Visit: Nov 20, 2017 at 16:45 . Subjective CC: Follow-up visit for cough, weakness, and other problems. HPI: No fever. Persistent cough; somewhat SOB. No chest pain. No nausea or vomiting. No diarrhea. No urinary symptoms. Confused. ROS: as noted above in HPI . Objective Last 8 Hrs Date Time Temp Pulse Resp B/P (MAP) Pulse Ox O2 Delivery O2 Flow Rate FiO2 11/20/17 15:18 36.4 58 22 194/88 (123) 97 Room Air 11/20/17 14:56 60 18 95 Room Air 11/20/17 11:21 66 18 94 Room Air Physical Exam: General- lying in bed; no distress Lungs- scattered rhonchi, mild wheezing; no respiratory distress Cardiovascular- RRR; no gallop; no JVD; no pretibial edema Abdomen- + bowel sounds, soft, nontender Extremities- no cyanosis; no calf tenderness Neuro- alert, confused, only oriented to person (cannot name place, day of week , year, president) Skin- warm & dry . Laboratory Results: Last 24 Hours Test 11/20/17 05:50 11/20/17 16:26 White Blood Count 3.72 K/uL Red Blood Count 4.14 M/uL Hemoglobin 12.5 g/dL Hematocrit 37.6 % Mean Corpuscular Volume 90.8 fL Mean Corpuscular Hemoglobin 30.2 pg Mean Corpuscular Hemoglobin Concent 33.2 g/dl RDW Standard Deviation 43.8 fL RDW Coefficient of Variation 13.2 % Platelet Count 253 K/uL Mean Platelet Volume 10.1 fL Sodium Level 134 mmol/L Potassium Level 4.0 mmol/L Chloride Level 102 mmol/L Carbon Dioxide Level 25 mmol/L Anion Gap 7.0 mmol/L Blood Urea Nitrogen 30 mg/dl Creatinine 1.72 mg/dl Est Creatinine Clear Calc Drug Dose 23.6 ml/min Estimated GFR () 30.5 Estimated GFR (Non- 26.3 BUN/Creatinine Ratio 17.6 Random Glucose 108 mg/dl Calcium Level 8.5 mg/dl Magnesium Level 2.1 mg/dl Assessment & Plan 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 Check PCR. ACUTE KIDNEY INJURY / DEHYDRATION Hold triamterene / HCTZ. IV fluids. Follow. HYPERTENSION BP's elevated. Continue atenolol. Add IV hydralazine PRN. DEMENTIA Continue donepezil. Monitor for delirium. DEPRESSION Psychiatry consulted. FALLS PT / OT evals. VTE PROPHYLAXIS SQ enoxaparin. Ambulate. DISPOSITION To be determined. May need skilled care or rehab. Consult Case Management. Internal Medicine follow-up with Dr. Puentes. ADDENDUM: Influenza PCR + for influenza A. Start oseltamivir. Daughter given update by phone. . Current Inpatient Medications: Current Inpatient Medications Medications (Trade) Dose Ordered Sig/Dotty Route Start Time Stop Time Status Last Admin Dose Admin Enoxaparin Sodium (Lovenox Inj) 30 mg Q24H SQ 11/19/17 20:00 12/19/17 19:59 11/19/17 22:44 30 MG Acetaminophen (Tylenol Tab) 650 mg Q4H PRN PO 11/19/17 20:00 12/19/17 19:59 Prednisone (PredniSONE TAB) 40 mg DAILY PO 11/20/17 09:00 12/20/17 08:59 11/20/17 08:13 40 MG Albuterol/ Ipratropium (Duoneb) 3 ml QIDR INH 11/19/17 20:00 12/19/17 19:59 11/20/17 14:56 3 ML Doxycycline Hyclate (Vibramycin Cap) 100 mg BID PO 11/19/17 21:00 11/26/17 20:59 11/20/17 08:14 100 MG Alprazolam (Xanax Tab) 0.5 mg BID PRN PO 11/19/17 20:00 12/19/17 19:59 Aspirin (Ecotrin Tab) 81 mg DAILY PO 11/20/17 09:00 12/20/17 08:59 11/20/17 08:14 81 MG Atenolol (Tenormin Tab) 25 mg DAILY PO 11/20/17 09:00 12/20/17 08:59 11/20/17 08:14 25 MG Citalopram Hydrobromide (celeXA TAB) 40 mg DAILY PO 11/20/17 09:00 12/20/17 08:59 11/20/17 08:14 40 MG Donepezil HCl (Aricept Tab) 10 mg DAILY PO 11/20/17 09:00 3/5/18 08:59 11/20/17 08:14 10 MG Buspirone HCl (Buspar Tab) 10 mg BID PO 11/19/17 21:00 12/19/17 20:59 11/20/17 08:15 10 MG Sodium Chloride 1,000 ml @ 100 mls/hr Q10H IV 11/19/17 20:15 12/19/17 20:14 11/20/17 16:52 100 MLS/HR Miscellaneous (Iv Fluids Completed) 1 ea PRN PRN N/A 11/19/17 23:45 11/19/18 23:44
[2017-11-20 17:17] LABS: INFLUENZA A PCR POS for Influ A (NEG)
[2017-11-20] MEDS ORDERED: AMLODIPINE BESYLATE 5 MG TAB PO ONE (19:15)
[2017-11-20] MEDS ORDERED: OSELTAMIVIR PHOSPHATE SUSP 30 MG/5 ML UDP PO SCH (21:00)
[2017-11-20] MEDS: ENOXAPARIN 30 MG/0.3 ML SYR SQ SCH (21:55)
[2017-11-21] VITALS (7 sets, daily range): BP systolic 116–201; BP diastolic 58–96; PULSE 54–89; TEMP 36.2–36.7; O2SAT 91–96
[2017-11-21] MEDS: SODIUM CHLORIDE 0.9% 1000ML 1,000 ML IV SCH (03:06)
[2017-11-21] MEDS ORDERED: OLANZAPINE 10 MG/2.1 ML SDV IM STA (06:16)
--- NOTE | 2017-11-21 06:37 | Progress Note ---
Internal Med Progress Note Date of Service: Nov 21, 2017. Provider Documentation: Made aware by RN of increased agitation. AP Delirium on dementia Steroid regimen possibly contributory Zyprexa IM stat Hold Prednisone course until seen by AM provider. Vital Signs: Date Time Temp Pulse Resp B/P (MAP) Pulse Ox O2 Delivery O2 Flow Rate FiO2 11/21/17 07:37 89 18 96 Room Air 11/21/17 06:59 36.6 78 22 145/73 (97) 93 Room Air 11/21/17 02:30 64 116/58 (77) 11/21/17 00:15 Room Air 11/20/17 23:51 36.4 70 20 205/79 (121) 95 Room Air 11/20/17 19:41 78 18 96 Room Air 11/20/17 19:07 189/108 (135) 11/20/17 16:00 Room Air 11/20/17 15:18 36.4 58 22 194/88 (123) 97 Room Air 11/20/17 14:56 60 18 95 Room Air 11/20/17 11:21 66 18 94 Room Air Lab Results: Results Past 24 Hours Test 11/20/17 16:26 11/21/17 06:48 Range/Units Influenza Type A (RT-PCR) POS for Influ A NEG Influenza Type B (RT-PCR) Neg for Influ B NEG Sodium Level 135 136-145 mmol/L Potassium Level 3.6 3.5-5.1 mmol/L Chloride Level 104 98-107 mmol/L Carbon Dioxide Level 20 21-32 mmol/L Anion Gap 11.0 3-11 mmol/L Blood Urea Nitrogen 21 7-18 mg/dl Creatinine 1.29 0.60-1.20 mg/dl Est Creatinine Clear Calc Drug Dose 31.5 ml/min Estimated GFR () 43.1 Estimated GFR (Non- 37.2 BUN/Creatinine Ratio 16.3 10-20 Random Glucose 104 70-99 mg/dl Calcium Level 9.0 8.5-10.1 mg/dl
[2017-11-21 07:32] LABS: CREATININE 1.29 mg/dl (0.60-1.20); POTASSIUM 3.6 mmol/L (3.5-5.1)
[2017-11-21] MEDS: ALBUT/IPRATROP 3MG/0.5MG NEB 3 ML VIAL INH SCH (07:37)
[2017-11-21] MEDS: CITALOPRAM 40 MG TAB PO SCH (07:49)
[2017-11-21] MEDS: DONEPEZIL HCL 10 MG TAB PO SCH (07:49)
[2017-11-21] MEDS: ASPIRIN 81 MG ECTAB PO SCH (07:51)
[2017-11-21] MEDS: AMLODIPINE BESYLATE 5 MG TAB PO SCH (07:51)
[2017-11-21] MEDS ORDERED: ALPRAZOLAM 0.25 MG TAB PO ONE (10:22)
[2017-11-21] MEDS ORDERED: OLANZAPINE ZYDIS 5 MG ORALLY DIS. TAB PO PRN (10:30)
[2017-11-21] MEDS ORDERED: LEVALBUTEROL 0.63MG/3 ML NEB INH PRN (10:30)
--- NOTE | 2017-11-21 10:47 | Progress Note ---
Medicine Progress Note Date & Time of Visit: Nov 21, 2017 at 10:10 . Subjective CC: Follow-up visit for multiple problems. HPI: Confused / agitated last evening. Has one:one staffing. No fever. Persistent cough; denies SOB. Denies nausea, vomiting, diarrhea. ROS: as noted above in HPI . Objective Last 8 Hrs Date Time Temp Pulse Resp B/P (MAP) Pulse Ox O2 Delivery O2 Flow Rate FiO2 11/21/17 07:37 89 18 96 Room Air 11/21/17 06:59 36.6 78 22 145/73 (97) 93 Room Air Physical Exam: General- sitting in chair; no distress Lungs- scattered rhonchi, mild wheezing; no respiratory distress Cardiovascular- irregular; no gallop; no JVD; no pretibial edema Abdomen- + bowel sounds, soft, nontender Extremities- no cyanosis; no calf tenderness Neuro- alert, confused, delusional, worried that her dog is not being cared for , tangential, no apparent hallucinations Skin- warm & dry . 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 Received olanzapine- will DC because of delirium. ACUTE KIDNEY INJURY / DEHYDRATION Hold triamterene / HCTZ. Receiving IV fluids. Improved. Encourage PO fluids. Follow. ATRIAL FIBRILLATION Rate controlled on atenolol. High risk for anticoagulation. HYPERTENSION BP's elevated, probably because of delirium. Continue atenolol. Added amlodipine. Added IV hydralazine PRN. DEMENTIA / DELIRIUM Experiencing delirium. May potential contributing factors: acute illness change of environment benzo withdrawal- takes alprazolam at least 1-2 times a day at home oseltamivir prednisone ipratropium increased dose of citalopram Low dose alprazolam with caution. Low dose olanzapine PRN for severe delirium when pt's safety at risk and other measures ineffective. QTc < 500 msec. DC IV. DC anticholinergic meds. Resume previous dose of citalopram, consider escitalopram Continue donepezil. 1:1 staffing for patient safety. DEPRESSION Psychiatry consulted. FALLS PT / OT evals. VTE PROPHYLAXIS SQ enoxaparin. Ambulate. DISPOSITION To be determined. Anticipate need skilled care or rehab. Consult Case Management. Internal Medicine follow-up with Dr. Puentes. . Current Inpatient Medications: Current Inpatient Medications Medications (Trade) Dose Ordered Sig/Dotty Route Start Time Stop Time Status Last Admin Dose Admin Enoxaparin Sodium (Lovenox Inj) 30 mg Q24H SQ 11/19/17 20:00 12/19/17 19:59 11/20/17 21:55 30 MG Acetaminophen (Tylenol Tab) 650 mg Q4H PRN PO 11/19/17 20:00 12/19/17 19:59 Aspirin (Ecotrin Tab) 81 mg DAILY PO 11/20/17 09:00 12/20/17 08:59 11/21/17 07:51 81 MG Atenolol (Tenormin Tab) 25 mg DAILY PO 11/20/17 09:00 12/20/17 08:59 11/21/17 07:48 25 MG Donepezil HCl (Aricept Tab) 10 mg DAILY PO 11/20/17 09:00 12/20/17 08:59 11/21/17 07:49 10 MG Buspirone HCl (Buspar Tab) 10 mg BID PO 11/19/17 21:00 12/19/17 20:59 11/21/17 07:51 10 MG Sodium Chloride 1,000 ml @ 100 mls/hr Q10H IV 11/19/17 20:15 12/19/17 20:14 11/21/17 03:06 100 MLS/HR Miscellaneous (Iv Fluids Completed) 1 ea PRN PRN N/A 11/19/17 23:45 11/19/18 23:44 Oseltamivir Phosphate (Tamiflu Susp) 30 mg QPM PO 11/20/17 21:00 11/24/17 21:01 11/20/17 21:54 30 MG Hydralazine HCl (HydrALAZINE INJ) 10 mg Q6H PRN IV. 11/20/17 19:15 12/20/17 19:14 Amlodipine Besylate (Norvasc Tab) 5 mg QAM PO 11/21/17 09:00 12/21/17 08:59 11/21/17 07:51 5 MG Alprazolam (Xanax Tab) 0.25 mg BID PO 11/21/17 21:00 12/21/17 20:59 UNV Alprazolam (Xanax Tab) 0.25 mg Q6H PRN PO 11/21/17 10:30 12/21/17 10:29 UNV Alprazolam (Xanax Tab) 0.25 mg 1022 ONCE PO 11/21/17 10:22 11/21/17 10:23 UNV Citalopram Hydrobromide (celeXA TAB) 20 mg QAM PO 11/22/17 09:00 12/22/17 08:59 UNV Levalbuterol (Xopenex 0.63 Mg/ 3 Ml Neb) 0.63 mg Q6H PRN INH 11/21/17 10:30 12/21/17 10:29 UNV Olanzapine (Zyprexa Zydis Od Tab) 2.5 mg Q12 PRN PO 11/21/17 10:30 12/21/17 10:29 UNV
[2017-11-21] MEDS ORDERED: IPRATROPIUM BROMIDE/ALBUTEROL respimat INH INH SCH (13:00)
[2017-11-21] MEDS: ALPRAZOLAM 0.25 MG TAB PO PRN (16:26)
[2017-11-21] MEDS: HydrALAZINE HCL 20 MG/ML VIAL IV. PRN ×2 (16:27→23:43)
[2017-11-21] MEDS: ALPRAZOLAM 0.25 MG TAB PO SCH (20:31)
[2017-11-21] MEDS: ENOXAPARIN 30 MG/0.3 ML SYR SQ SCH (20:32)
[2017-11-22] VITALS (7 sets, daily range): BP systolic 126–191; BP diastolic 62–81; PULSE 59–88; TEMP 36.4–37; O2SAT 91–95
[2017-11-22 08:49] LABS: CALCIUM 8.5 mg/dl (8.5-10.1); CREATININE 1.35 mg/dl (0.60-1.20); POTASSIUM 3.7 mmol/L (3.5-5.1)
[2017-11-22] MEDS: ALPRAZOLAM 0.25 MG TAB PO SCH ×2 (09:19→21:00)
[2017-11-22] MEDS: ASPIRIN 81 MG ECTAB PO SCH (09:20)
[2017-11-22] MEDS: AMLODIPINE BESYLATE 5 MG TAB PO SCH (09:20)
[2017-11-22] MEDS: DONEPEZIL HCL 10 MG TAB PO SCH (09:21)
[2017-11-22] MEDS: CITALOPRAM 20 MG TAB PO SCH (09:21)
--- NOTE | 2017-11-22 13:44 | Psychiatric Progress Notes ---
Psychiatric Progress Note Date of Service Nov 22, 2017. Notes Rosita Ingram is a 87-year-old female admitted to the medical floor for cough and chest congestion. Patient has a PMH of dementia, depression/anxiety, HTN, CKD stage 3. Psychiatric consult requested due to worsening of depression. The patient was initially seen 11/20/2017, and is being seen today for follow- up. Patient is sleeping soundly and unarousable. Per one to one staff, she was awake earlier today, and has been calm and appropriate in her behavior today. Spoke with Dr. Spear yesterday, and he restarted low-dose alprazolam due to concerns for benzodiazepine withdrawal, and decreased her citalopram back to 20 mg daily. She had an episode of disorientation and agitation in the early interventionist hours yesterday, and received olanzapine 2.5 mg IM. Per staff, she has been calm since then. MSE: White female appearing her stated age, lying in bed sleeping. She is unarousable to multiple attempts. Assessment and plan: 1. Depression: Continue home dose of citalopram, and we have requested records from PCP. It is unclear if she sees a psychiatrist, or if her PCP prescribes her medications. We'll request that the liaison nurse contact her daughter regarding her concerns about changes in the patient's mood, as she herself denied feeling depressed on initial assessment. 2. Delirium: Treatment per primary team, may have been a component of benzodiazepine withdrawal so agree with resuming low-dose alprazolam. Would recommend this be tapered off slowly as an outpatient due to her age and the risk of cognitive impairment and falls. Olanzapine 2.5 mg as needed for agitation which does not respond to behavioral interventions.
[2017-11-22] MEDS: HydrALAZINE HCL 20 MG/ML VIAL IV. PRN (15:37)
[2017-11-22] MEDS: ALPRAZOLAM 0.25 MG TAB PO PRN (17:27)
--- NOTE | 2017-11-22 20:41 | Progress Note ---
Medicine Progress Note Date & Time of Visit: Nov 22, 2017 at ~ 16:00 . Subjective CC: Follow-up visit for multiple problems. HPI: Less agitated. Cough improved. Denies SOB. No chest pain. Denies nausea, vomiting, diarrhea. No fever. ROS: as noted above in HPI . Objective Last 8 Hrs Date Time Temp Pulse Resp B/P (MAP) Pulse Ox O2 Delivery O2 Flow Rate FiO2 11/22/17 17:09 174/71 (105) 11/22/17 16:00 Room Air 11/22/17 15:19 36.5 72 20 191/73 (112) 94 Room Air Physical Exam: General- lying in bed; no distress Lungs- scattered rhonchi, moderate wheezing; no respiratory distress Cardiovascular- irregular; no gallop; no JVD; no pretibial edema Abdomen- + bowel sounds, soft, nontender Extremities- no cyanosis; no calf tenderness Neuro- alert, confused (unable to state location, day of week, year) Skin- warm & dry . 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 Received olanzapine- stopped because of delirium. ACUTE KIDNEY INJURY / DEHYDRATION Holding triamterene / HCTZ. Received IV fluids- stopped because of delirium. Improved. Creatinine today 1.35. Encourage PO fluids. Follow. ATRIAL FIBRILLATION Rate controlled on atenolol. High risk for anticoagulation. HYPERTENSION BP's elevated, probably because of delirium. Holding triamterene / HCTZ. Continue atenolol. Added amlodipine. Added IV hydralazine PRN. DEMENTIA / DELIRIUM Experiencing delirium. May potential contributing factors: acute illness change of environment benzo withdrawal- takes alprazolam at least 1-2 times a day at home oseltamivir prednisone ipratropium increased dose of citalopram Low dose alprazolam with caution (because she takes it chronically at home and is at risk for withdrawal). Low dose olanzapine PRN for severe delirium when pt's safety at risk and other measures ineffective. QTc < 500 msec. Stopped IV. Stopped anticholinergic meds. Resumed previous dose of citalopram. Continue donepezil. 1:1 staffing as needed for patient safety. DEPRESSION Psychiatry consulted. FALLS PT / OT evals. VTE PROPHYLAXIS SQ enoxaparin. Ambulate. DISPOSITION To be determined. Anticipate need skilled care or rehab. Consult Case Management. Internal Medicine follow-up with Dr. Puentes. . Current Inpatient Medications: Current Inpatient Medications Medications (Trade) Dose Ordered Sig/Dotty Route Start Time Stop Time Status Last Admin Dose Admin Enoxaparin Sodium (Lovenox Inj) 30 mg Q24H SQ 11/19/17 20:00 12/19/17 19:59 11/21/17 20:32 30 MG Acetaminophen (Tylenol Tab) 650 mg Q4H PRN PO 11/19/17 20:00 12/19/17 19:59 11/21/17 16:50 650 MG Aspirin (Ecotrin Tab) 81 mg DAILY PO 11/20/17 09:00 12/20/17 08:59 11/22/17 09:20 81 MG Atenolol (Tenormin Tab) 25 mg DAILY PO 11/20/17 09:00 12/20/17 08:59 11/22/17 09:22 25 MG Donepezil HCl (Aricept Tab) 10 mg DAILY PO 11/20/17 09:00 12/20/17 08:59 11/22/17 09:21 10 MG Buspirone HCl (Buspar Tab) 10 mg BID PO 11/19/17 21:00 12/19/17 20:59 11/22/17 09:20 10 MG Miscellaneous (Iv Fluids Completed) 1 ea PRN PRN N/A 11/19/17 23:45 11/19/18 23:44 Hydralazine HCl (HydrALAZINE INJ) 10 mg Q6H PRN IV. 11/20/17 19:15 12/20/17 19:14 11/22/17 15:37 10 MG Amlodipine Besylate (Norvasc Tab) 5 mg QAM PO 11/21/17 09:00 12/21/17 08:59 11/22/17 09:20 5 MG Alprazolam (Xanax Tab) 0.25 mg BID PO 11/21/17 21:00 12/21/17 20:59 11/22/17 09:19 0.25 MG Alprazolam (Xanax Tab) 0.25 mg Q6H PRN PO 11/21/17 10:30 12/21/17 10:29 11/22/17 17:27 0.25 MG Citalopram Hydrobromide (celeXA TAB) 20 mg QAM PO 11/22/17 09:00 12/22/17 08:59 11/22/17 09:21 20 MG Levalbuterol (Xopenex 0.63 Mg/ 3 Ml Neb) 0.63 mg Q6H PRN INH 11/21/17 10:30 12/21/17 10:29 Olanzapine (Zyprexa Zydis Od Tab) 2.5 mg Q12 PRN PO 11/21/17 10:30 12/21/17 10:29
[2017-11-22] MEDS: ENOXAPARIN 30 MG/0.3 ML SYR SQ SCH (22:06)
[2017-11-23 07:23] LABS: HEMATOCRIT 38.7 % (37-47); MEAN CELL VOLUME 91.3 fL (80-100); MEAN CORPUSCULAR HEMOGLOBIN 30.7 pg (25-34); MEAN CORPUSCULAR HGB CONC 33.6 g/dl (32-36); PLATELET COUNT 271 K/uL (130-400); RED CELL DISTRIBUTION WIDTH CV 13.2 % (11.5-14.5); RED CELL DISTRIBUTION WIDTH SD 44.4 fL (36.4-46.3); WHITE BLOOD COUNT 6.35 K/uL (4.8-10.8)
[2017-11-23 07:59] LABS: CALCIUM 8.4 mg/dl (8.5-10.1); CREATININE 1.23 mg/dl (0.60-1.20); POTASSIUM 3.4 mmol/L (3.5-5.1)
[2017-11-23 08:03] VITALS: BP 190/75; PULSE 66; TEMP 37; O2SAT 93
[2017-11-23] MEDS: DONEPEZIL HCL 10 MG TAB PO SCH (08:10)
[2017-11-23] MEDS: CITALOPRAM 20 MG TAB PO SCH (08:10)
[2017-11-23] MEDS: ASPIRIN 81 MG ECTAB PO SCH (08:11)
[2017-11-23] MEDS: AMLODIPINE BESYLATE 5 MG TAB PO SCH (08:11)
[2017-11-23] MEDS: ALPRAZOLAM 0.25 MG TAB PO SCH ×2 (08:13→21:19)
[2017-11-23 10:41] VITALS: BP 122/66; PULSE 68
[2017-11-23 14:47] VITALS: BP 137/77; PULSE 76; TEMP 37; O2SAT 94
--- NOTE | 2017-11-23 20:32 | Progress Note ---
Medicine Progress Note Date & Time of Visit: Nov 23, 2017 at 19:10 . Subjective CC: Follow-up visit for multiple problems. HPI: Better. Still has congested cough, but denies SOB. No chest pain. Denies nausea, vomiting, diarrhea. No fever. Less agitated, still confused. ROS: as noted above in HPI . Objective Last 8 Hrs Date Time Temp Pulse Resp B/P (MAP) Pulse Ox O2 Delivery O2 Flow Rate FiO2 11/23/17 19:15 Room Air 11/23/17 15:45 Room Air 11/23/17 14:47 37.0 76 20 137/77 (97) 94 Physical Exam: General- lying in bed; no distress Lungs- scattered rhonchi, moderate wheezing; no respiratory distress Cardiovascular- irregular; no gallop; no JVD; no pretibial edema Abdomen- + bowel sounds, soft, nontender Extremities- no cyanosis; no calf tenderness Neuro- alert, pleasantly confused; oriented to person and hospital, not time; Skin- warm & dry . Laboratory Results: Last 24 Hours Test 11/23/17 07:07 White Blood Count 6.35 K/uL Red Blood Count 4.24 M/uL Hemoglobin 13.0 g/dL Hematocrit 38.7 % Mean Corpuscular Volume 91.3 fL Mean Corpuscular Hemoglobin 30.7 pg Mean Corpuscular Hemoglobin Concent 33.6 g/dl RDW Standard Deviation 44.4 fL RDW Coefficient of Variation 13.2 % Platelet Count 271 K/uL Mean Platelet Volume 10.0 fL Sodium Level 138 mmol/L Potassium Level 3.4 mmol/L Chloride Level 106 mmol/L Carbon Dioxide Level 24 mmol/L Anion Gap 8.0 mmol/L Blood Urea Nitrogen 26 mg/dl Creatinine 1.23 mg/dl Est Creatinine Clear Calc Drug Dose 33.0 ml/min Estimated GFR () 45.7 Estimated GFR (Non- 39.4 BUN/Creatinine Ratio 21.1 Random Glucose 90 mg/dl Calcium Level 8.4 mg/dl Assessment & 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 Received olanzapine- stopped because of delirium. ACUTE KIDNEY INJURY / DEHYDRATION Holding triamterene / HCTZ. Received IV fluids- stopped because of delirium. Improved. Creatinine today 1.23. Encourage PO fluids. Follow. ATRIAL FIBRILLATION Rate controlled on atenolol. High risk for anticoagulation. HYPERTENSION BP's elevated, probably because of delirium. Holding triamterene / HCTZ. Continue atenolol. Added amlodipine. Added IV hydralazine PRN. DEMENTIA / DELIRIUM Experiencing delirium. May potential contributing factors: acute illness change of environment benzo withdrawal- takes alprazolam at least 1-2 times a day at home oseltamivir prednisone ipratropium increased dose of citalopram Low dose alprazolam with caution (because she takes it chronically at home and is at risk for withdrawal). Low dose olanzapine PRN for severe delirium when pt's safety at risk and other measures ineffective. QTc < 500 msec. Stopped IV. Stopped anticholinergic meds. Resumed previous dose of citalopram. Continue donepezil. 1:1 staffing as needed for patient safety. DEPRESSION Psychiatry consulted. FALLS PT / OT evals. VTE PROPHYLAXIS SQ enoxaparin. Ambulate. DISPOSITION To be determined. Anticipate need skilled care or rehab. Consult Case Management. Internal Medicine follow-up with Dr. Puentes. . Current Inpatient Medications: Current Inpatient Medications Medications (Trade) Dose Ordered Sig/Dotty Route Start Time Stop Time Status Last Admin Dose Admin Enoxaparin Sodium (Lovenox Inj) 30 mg Q24H SQ 11/19/17 20:00 12/19/17 19:59 11/22/17 22:06 30 MG Acetaminophen (Tylenol Tab) 650 mg Q4H PRN PO 11/19/17 20:00 12/19/17 19:59 11/21/17 16:50 650 MG Aspirin (Ecotrin Tab) 81 mg DAILY PO 11/20/17 09:00 12/20/17 08:59 11/23/17 08:11 81 MG Atenolol (Tenormin Tab) 25 mg DAILY PO 11/20/17 09:00 12/20/17 08:59 11/23/17 08:10 25 MG Donepezil HCl (Aricept Tab) 10 mg DAILY PO 11/20/17 09:00 12/20/17 08:59 11/23/17 08:10 10 MG Buspirone HCl (Buspar Tab) 10 mg BID PO 11/19/17 21:00 12/19/17 20:59 11/23/17 08:10 10 MG Miscellaneous (Iv Fluids Completed) 1 ea PRN PRN N/A 11/19/17 23:45 11/19/18 23:44 Hydralazine HCl (HydrALAZINE INJ) 10 mg Q6H PRN IV. 11/20/17 19:15 12/20/17 19:14 11/22/17 15:37 10 MG Amlodipine Besylate (Norvasc Tab) 5 mg QAM PO 11/21/17 09:00 12/21/17 08:59 11/23/17 08:11 5 MG Alprazolam (Xanax Tab) 0.25 mg BID PO 11/21/17 21:00 12/21/17 20:59 11/23/17 08:13 0.25 MG Alprazolam (Xanax Tab) 0.25 mg Q6H PRN PO 11/21/17 10:30 12/21/17 10:29 11/22/17 17:27 0.25 MG Citalopram Hydrobromide (celeXA TAB) 20 mg QAM PO 11/22/17 09:00 12/22/17 08:59 11/23/17 08:10 20 MG Levalbuterol (Xopenex 0.63 Mg/ 3 Ml Neb) 0.63 mg Q6H PRN INH 11/21/17 10:30 12/21/17 10:29 Olanzapine (Zyprexa Zydis Od Tab) 2.5 mg Q12 PRN PO 11/21/17 10:30 12/21/17 10:29 Methylprednisolone Sodium Succinate 20 mg/Syringe 0.32 ml @ 1.5 mls/min Q12H IV 11/23/17 20:00 12/23/17 19:59
[2017-11-23] MEDS ORDERED: METHYLPREDNISOLONE 1000 MG/16 ML IV SCH (21:00)
--- NOTE | 2017-11-23 21:04 | DIAGNOSTIC IMAGING REPORT ---
CHEST ONE VIEW PORTABLE HISTORY: 87 years-old Female f/u influenza follow-up study in a patient with influenza COMPARISON: Chest radiograph 11/19/2017 TECHNIQUE: Portable AP view of the chest FINDINGS: Cardiac silhouette is again enlarged, unchanged. Atherosclerosis of the aorta. Minimal linear subsegmental bibasilar opacities redemonstrated suggesting areas of atelectasis or scarring. There is no pneumothorax, pleural effusion, focal airspace consolidation or overt pulmonary edema. Multiple remote left-sided rib fractures are again seen. Degenerative changes noted within the spine and shoulders. IMPRESSION: No acute process. The above report was generated using voice recognition software. It may contain grammatical, syntax or spelling errors. Electronically signed by: Joon Cazares M.D. 11/23/2017 9:03 PM Dictated Date/Time: 11/23/2017 9:02 PM
[2017-11-23] MEDS: ENOXAPARIN 30 MG/0.3 ML SYR SQ SCH (21:19)
[2017-11-23] MEDS: METHYLPREDNISOLONE 20 MG in SYRINGE 0 ML IV SCH (21:19)
[2017-11-24 00:37] VITALS: BP 149/91; PULSE 73; TEMP 36.8; O2SAT 93
[2017-11-24 06:50] VITALS: BP 178/80; PULSE 73; TEMP 36.5; O2SAT 94
[2017-11-24] MEDS: ALPRAZOLAM 0.25 MG TAB PO SCH ×2 (07:41→20:00)
[2017-11-24] MEDS: AMLODIPINE BESYLATE 5 MG TAB PO SCH (07:41)
[2017-11-24] MEDS: ASPIRIN 81 MG ECTAB PO SCH (07:42)
[2017-11-24] MEDS: CITALOPRAM 20 MG TAB PO SCH (07:42)
[2017-11-24] MEDS: METHYLPREDNISOLONE 20 MG in SYRINGE 0 ML IV SCH ×2 (07:42→20:00)
[2017-11-24] MEDS: DONEPEZIL HCL 10 MG TAB PO SCH (07:42)
[2017-11-24 15:55] VITALS: BP 182/98; PULSE 80; TEMP 36.5; O2SAT 94
[2017-11-24] MEDS: HydrALAZINE HCL 20 MG/ML VIAL IV. PRN (16:11)
[2017-11-24] MEDS: ENOXAPARIN 30 MG/0.3 ML SYR SQ SCH (19:59)
--- NOTE | 2017-11-24 21:28 | Progress Note ---
Medicine Progress Note Date & Time of Visit: Nov 24, 2017 at 16:00 . Subjective CC: Follow-up visit for multiple problems. HPI: Better. Less chest congestion. Denies cough or SOB. No chest pain. Denies nausea, vomiting, diarrhea. No fever. ROS: as noted above in HPI . Objective Last 8 Hrs Date Time Temp Pulse Resp B/P (MAP) Pulse Ox O2 Delivery O2 Flow Rate FiO2 11/24/17 16:15 Room Air 11/24/17 15:55 36.5 80 18 182/98 (126) 94 Room Air Physical Exam: General- lying in bed; no distress Lungs- scattered rhonchi, mild-moderate wheezing; no respiratory distress Cardiovascular- irregular; no gallop; no JVD; no pretibial edema Abdomen- + bowel sounds, soft, nontender Extremities- no cyanosis; no calf tenderness Neuro- alert, pleasantly confused Skin- warm & dry . 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 Received olanzapine- stopped because of delirium. Received steroids for bronchospasm with improvement. ACUTE KIDNEY INJURY / DEHYDRATION Holding triamterene / HCTZ. Received IV fluids- stopped because of delirium. Improved. Creatinine yesterday 1.23. Encourage PO fluids. Follow. ATRIAL FIBRILLATION Rate controlled on atenolol. High risk for anticoagulation. HYPERTENSION BP's elevated, probably because of delirium. Holding triamterene / HCTZ. Continue atenolol. Added amlodipine. Added IV hydralazine PRN. DEMENTIA / DELIRIUM Experiencing delirium. May potential contributing factors: acute illness change of environment benzo withdrawal- takes alprazolam at least 1-2 times a day at home oseltamivir prednisone ipratropium increased dose of citalopram Low dose alprazolam with caution (because she takes it chronically at home and is at risk for withdrawal). Low dose olanzapine PRN for severe delirium when pt's safety at risk and other measures ineffective. QTc < 500 msec. Stopped IV. Stopped anticholinergic meds. Resumed previous dose of citalopram. Continue donepezil. 1:1 staffing as needed for patient safety. DEPRESSION Psychiatry consulted. FALLS PT / OT evals. VTE PROPHYLAXIS SQ enoxaparin. Ambulate. DISPOSITION To be determined. Anticipate need skilled care or rehab. Consult Case Management. Internal Medicine follow-up with Dr. Garcia . Current Inpatient Medications: Current Inpatient Medications Medications (Trade) Dose Ordered Sig/Dotty Route Start Time Stop Time Status Last Admin Dose Admin Enoxaparin Sodium (Lovenox Inj) 30 mg Q24H SQ 11/19/17 20:00 12/19/17 19:59 11/24/17 19:59 30 MG Acetaminophen (Tylenol Tab) 650 mg Q4H PRN PO 11/19/17 20:00 12/19/17 19:59 11/21/17 16:50 650 MG Aspirin (Ecotrin Tab) 81 mg DAILY PO 11/20/17 09:00 12/20/17 08:59 11/24/17 07:42 81 MG Atenolol (Tenormin Tab) 25 mg DAILY PO 11/20/17 09:00 12/20/17 08:59 11/24/17 07:41 25 MG Donepezil HCl (Aricept Tab) 10 mg DAILY PO 11/20/17 09:00 12/20/17 08:59 11/24/17 07:42 10 MG Buspirone HCl (Buspar Tab) 10 mg BID PO 11/19/17 21:00 12/19/17 20:59 11/24/17 20:00 10 MG Miscellaneous (Iv Fluids Completed) 1 ea PRN PRN N/A 11/19/17 23:45 11/19/18 23:44 Hydralazine HCl (HydrALAZINE INJ) 10 mg Q6H PRN IV. 11/20/17 19:15 12/20/17 19:14 11/24/17 16:11 10 MG Amlodipine Besylate (Norvasc Tab) 5 mg QAM PO 11/21/17 09:00 12/21/17 08:59 11/24/17 07:41 5 MG Alprazolam (Xanax Tab) 0.25 mg BID PO 11/21/17 21:00 12/21/17 20:59 11/24/17 20:00 0.25 MG Alprazolam (Xanax Tab) 0.25 mg Q6H PRN PO 11/21/17 10:30 12/21/17 10:29 11/22/17 17:27 0.25 MG Citalopram Hydrobromide (celeXA TAB) 20 mg QAM PO 11/22/17 09:00 12/22/17 08:59 11/24/17 07:42 20 MG Levalbuterol (Xopenex 0.63 Mg/ 3 Ml Neb) 0.63 mg Q6H PRN INH 11/21/17 10:30 12/21/17 10:29 Olanzapine (Zyprexa Zydis Od Tab) 2.5 mg Q12 PRN PO 11/21/17 10:30 12/21/17 10:29 Methylprednisolone Sodium Succinate 20 mg/Syringe 0.32 ml @ 1.5 mls/min Q12H IV 11/23/17 20:00 12/23/17 19:59 11/24/17 20:00 1.5 MLS/MIN
[2017-11-24 22:56] VITALS: BP 163/74; PULSE 85; TEMP 36.4; O2SAT 91
[2017-11-25] MEDS: ALPRAZOLAM 0.25 MG TAB PO SCH ×2 (02:05→20:31)
[2017-11-25 07:32] VITALS: BP 186/79; PULSE 78; TEMP 36.7; O2SAT 94
[2017-11-25] MEDS: DONEPEZIL HCL 10 MG TAB PO SCH (07:33)
[2017-11-25] MEDS: METHYLPREDNISOLONE 20 MG in SYRINGE 0 ML IV SCH (07:33)
[2017-11-25] MEDS: ASPIRIN 81 MG ECTAB PO SCH (07:34)
[2017-11-25] MEDS: AMLODIPINE BESYLATE 5 MG TAB PO SCH (07:34)
[2017-11-25] MEDS: CITALOPRAM 20 MG TAB PO SCH (07:34)
[2017-11-25 08:55] LABS: CALCIUM 9.3 mg/dl (8.5-10.1); CREATININE 1.17 mg/dl (0.60-1.20); POTASSIUM 3.6 mmol/L (3.5-5.1)
[2017-11-25] MEDS: ALPRAZOLAM 0.25 MG TAB PO PRN (11:14)
[2017-11-25 15:47] VITALS: BP 166/75; PULSE 76; TEMP 36.4; O2SAT 94
[2017-11-25 15:50] VITALS: O2SAT 94
--- NOTE | 2017-11-25 19:49 | Progress Note ---
Medicine Progress Note Date & Time of Visit: Nov 25, 2017 . Subjective CC: Follow-up visit for multiple problems. HPI: More confused today. Wants to go home, will walk if necessary. Less chest congestion. Denies cough or SOB. No chest pain. Denies nausea, vomiting, diarrhea. No fever. Daughter visiting. ROS: as noted above in HPI . Objective Last 8 Hrs Date Time Temp Pulse Resp B/P (MAP) Pulse Ox O2 Delivery O2 Flow Rate FiO2 11/25/17 15:50 94 Room Air 11/25/17 15:47 36.4 76 20 166/75 (105) 94 Room Air Physical Exam: General- sitting in chair; no distress Lungs- few scattered rhonchi, mild wheezing; no respiratory distress Cardiovascular- irregular; no gallop; no JVD; no pretibial edema Abdomen- + bowel sounds, soft, nontender Extremities- no cyanosis; no calf tenderness Neuro- alert, confused, upset Skin- warm & dry . Laboratory Results: Last 24 Hours Test 11/25/17 08:05 Sodium Level 137 mmol/L Potassium Level 3.6 mmol/L Chloride Level 102 mmol/L Carbon Dioxide Level 26 mmol/L Anion Gap 8.0 mmol/L Blood Urea Nitrogen 28 mg/dl Creatinine 1.17 mg/dl Est Creatinine Clear Calc Drug Dose 34.7 ml/min Estimated GFR () 48.5 Estimated GFR (Non- 41.9 BUN/Creatinine Ratio 23.5 Random Glucose 127 mg/dl Calcium Level 9.3 mg/dl Assessment & Plan [employer] swab for influenza A/B Ag neg in ED, 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 Received olanzapine- stopped because of delirium. Received steroids for bronchospasm with improvement. ACUTE KIDNEY INJURY / DEHYDRATION Holding triamterene / HCTZ. Received IV fluids- stopped because of delirium. Improved. Creatinine yesterday 1.17. Encourage PO fluids. Follow. ATRIAL FIBRILLATION Rate controlled on atenolol. High risk for anticoagulation. HYPERTENSION BP's elevated, probably because of delirium. Holding triamterene / HCTZ. Continue atenolol. Added amlodipine. Added IV hydralazine PRN. DEMENTIA / DELIRIUM Experiencing delirium. May potential contributing factors: acute illness change of environment benzo withdrawal- takes alprazolam at least 1-2 times a day at home oseltamivir prednisone ipratropium increased dose of citalopram Low dose alprazolam with caution (because she takes it chronically at home and is at risk for withdrawal). Low dose olanzapine PRN for severe delirium when pt's safety at risk and other measures ineffective. QTc < 500 msec. Stopped IV. Stopped anticholinergic meds. Resumed previous dose of citalopram. Continue donepezil. 1:1 staffing as needed for patient safety. DEPRESSION Depression, dementia, delusional thoughts. Psychiatry consulted. FALLS PT / OT evals. VTE PROPHYLAXIS SQ enoxaparin. Ambulate. DISPOSITION To be determined. Consult Case Management. Internal Medicine follow-up with Dr. Puentes. Daughter visiting and given update. . Current Inpatient Medications: Current Inpatient Medications Medications (Trade) Dose Ordered Sig/Dotty Route Start Time Stop Time Status Last Admin Dose Admin Enoxaparin Sodium (Lovenox Inj) 30 mg Q24H SQ 11/19/17 20:00 12/19/17 19:59 11/24/17 19:59 30 MG Acetaminophen (Tylenol Tab) 650 mg Q4H PRN PO 11/19/17 20:00 12/19/17 19:59 11/21/17 16:50 650 MG Aspirin (Ecotrin Tab) 81 mg DAILY PO 11/20/17 09:00 12/20/17 08:59 11/25/17 07:34 81 MG Atenolol (Tenormin Tab) 25 mg DAILY PO 11/20/17 09:00 12/20/17 08:59 11/25/17 08:35 25 MG Donepezil HCl (Aricept Tab) 10 mg DAILY PO 11/20/17 09:00 12/20/17 08:59 11/25/17 07:33 10 MG Buspirone HCl (Buspar Tab) 10 mg BID PO 11/19/17 21:00 12/19/17 20:59 11/25/17 07:34 10 MG Miscellaneous (Iv Fluids Completed) 1 ea PRN PRN N/A 11/19/17 23:45 11/19/18 23:44 Hydralazine HCl (HydrALAZINE INJ) 10 mg Q6H PRN IV. 11/20/17 19:15 12/20/17 19:14 11/24/17 16:11 10 MG Amlodipine Besylate (Norvasc Tab) 5 mg QAM PO 11/21/17 09:00 12/21/17 08:59 11/25/17 07:34 5 MG Alprazolam (Xanax Tab) 0.25 mg BID PO 11/21/17 21:00 12/21/17 20:59 11/25/17 02:05 0.25 MG Alprazolam (Xanax Tab) 0.25 mg Q6H PRN PO 11/21/17 10:30 12/21/17 10:29 11/25/17 11:14 0.25 MG Citalopram Hydrobromide (celeXA TAB) 20 mg QAM PO 11/22/17 09:00 12/22/17 08:59 11/25/17 07:34 20 MG Levalbuterol (Xopenex 0.63 Mg/ 3 Ml Neb) 0.63 mg Q6H PRN INH 11/21/17 10:30 12/21/17 10:29 Olanzapine (Zyprexa Zydis Od Tab) 2.5 mg Q12 PRN PO 11/21/17 10:30 12/21/17 10:29 Methylprednisolone Sodium Succinate 20 mg/Syringe 0.32 ml @ 1.5 mls/min Q12H IV 11/23/17 20:00 12/23/17 19:59 11/25/17 07:33 1.5 MLS/MIN
[2017-11-25] MEDS: ENOXAPARIN 30 MG/0.3 ML SYR SQ SCH (20:32)
[2017-11-26 00:21] VITALS: BP 142/77; PULSE 70; TEMP 36.5; O2SAT 91
[2017-11-26 06:54] VITALS: BP 164/86; PULSE 51; TEMP 36.3; O2SAT 95
[2017-11-26] MEDS: ALPRAZOLAM 0.25 MG TAB PO SCH ×2 (07:51→20:20)
[2017-11-26] MEDS: AMLODIPINE BESYLATE 5 MG TAB PO SCH (07:51)
[2017-11-26] MEDS: DONEPEZIL HCL 10 MG TAB PO SCH (07:52)
[2017-11-26] MEDS: ASPIRIN 81 MG ECTAB PO SCH (07:52)
[2017-11-26] MEDS: CITALOPRAM 20 MG TAB PO SCH (07:52)
[2017-11-26 15:16] VITALS: BP 149/77; PULSE 114; TEMP 36.7; O2SAT 93
[2017-11-26 15:56] VITALS: O2SAT 93
[2017-11-26 17:00] VITALS: BP 135/69; PULSE 64; O2SAT 93
--- NOTE | 2017-11-26 18:37 | Progress Note ---
Internal Med Progress Note Date of Service: Nov 26, 2017. Provider Documentation: SUBJECTIVE: sitting on the chair comfortably says wants to go home and see her pets says she is feeling fine denies cough denies any pain somewhat hard to hear afebrile says she is hungry no nausea OBJECTIVE: Vital Signs-as noted below Exam: General-alert and awake. Not in distress ENT-hard of hearing Neck-no neck masses Lungs-cta b/l no wheezing or crackles Heart-S 1 and S 2 heard regular rate and rhythm no murmurs Abdomen-soft bowel sounds present non tender no distension Extremities-no edema no erythema Neuro-alert and awake moves extremities Lab data as noted below. ASSESSMENT & PLAN: COUGH Influenza A positive by pcr Tamiflu stopped because of delirium. Received steroids for bronchospasm with improvement. currently stable ACUTE KIDNEY INJURY / DEHYDRATION Holding triamterene / HCTZ. Received IV fluids- stopped because of delirium. resolved will consider restarting triamterene/hctz ATRIAL FIBRILLATION Rate controlled on atenolol. Not on anticoagulation secondary to fall risk. HYPERTENSION Holding triamterene / HCTZ as above Continue atenolol. Added amlodipine. Added IV hydralazine PRN. Will monitor DEMENTIA / DELIRIUM Stopped Tamiflu, prednisone, ipratropium, restarted home med Ativan at lower dose, changed Celexa back to home dose on donepezil on low dose olanzapine prn for delirium seems stable today continue to monitor DEPRESSION Depression, dementia, delusional thoughts. Psychiatry consulted- recommends to continue home dose Celexa. FALLS PT / OT evals. VTE PROPHYLAXIS SQ enoxaparin. DISPOSITION To be determined. Consulted Case Management. pt/ot Internal Medicine follow-up with Dr. Puentes. Vital Signs: Date Time Temp Pulse Resp B/P (MAP) Pulse Ox O2 Delivery O2 Flow Rate FiO2 11/26/17 17:00 64 19 135/69 (91) 93 Room Air 11/26/17 15:56 93 Room Air 11/26/17 15:16 36.7 114 20 149/77 (101) 93 11/26/17 08:00 Room Air 11/26/17 06:54 36.3 51 17 164/86 (112) 95 Room Air 11/26/17 00:21 36.5 70 16 142/77 (98) 91 11/26/17 00:20 Room Air
[2017-11-26] MEDS: ENOXAPARIN 30 MG/0.3 ML SYR SQ SCH (20:20)
[2017-11-26 22:55] VITALS: BP 148/83; PULSE 71; TEMP 36.6; O2SAT 91
[2017-11-27] VITALS: O2SAT 93
[2017-11-27 07:01] LABS: HEMATOCRIT 39.8 % (37-47); MEAN CELL VOLUME 92.6 fL (80-100); MEAN CORPUSCULAR HEMOGLOBIN 30.2 pg (25-34); MEAN CORPUSCULAR HGB CONC 32.7 g/dl (32-36); MEAN PLATELET VOLUME 10.1 fL (7.4-10.4); PLATELET COUNT 342 K/uL (130-400); RED CELL DISTRIBUTION WIDTH CV 13.5 % (11.5-14.5); RED CELL DISTRIBUTION WIDTH SD 45.4 fL (36.4-46.3); WHITE BLOOD COUNT 8.02 K/uL (4.8-10.8)
[2017-11-27 07:18] VITALS: BP 180/70; PULSE 66; TEMP 36.6; O2SAT 93
[2017-11-27 07:34] LABS: CALCIUM 8.8 mg/dl (8.5-10.1); CREATININE 1.25 mg/dl (0.60-1.20); POTASSIUM 3.8 mmol/L (3.5-5.1)
[2017-11-27] MEDS: ASPIRIN 81 MG ECTAB PO SCH (08:03)
[2017-11-27] MEDS: DONEPEZIL HCL 10 MG TAB PO SCH (08:03)
[2017-11-27] MEDS: AMLODIPINE BESYLATE 5 MG TAB PO SCH (08:04)
[2017-11-27] MEDS: CITALOPRAM 20 MG TAB PO SCH (08:04)
[2017-11-27] MEDS: ALPRAZOLAM 0.25 MG TAB PO SCH ×2 (08:07→20:39)
[2017-11-27 15:09] VITALS: BP 176/85; PULSE 72; TEMP 36.8; O2SAT 95
--- NOTE | 2017-11-27 18:54 | Progress Note ---
Medicine Progress Note Date & Time of Visit: Nov 27, 2017 at 14:00 . Subjective CC: Follow-up visit for multiple problems. HPI: Better. Out of bed, sitting in chair. Pleasantly confused. Less chest congestion. Denies cough or SOB. No chest pain. Denies nausea, vomiting, diarrhea. No fever. ROS: as noted above in HPI . Objective Last 8 Hrs Date Time Temp Pulse Resp B/P (MAP) Pulse Ox O2 Delivery O2 Flow Rate FiO2 11/27/17 16:00 Room Air 11/27/17 15:09 36.8 72 18 176/85 (115) 95 Room Air Physical Exam: General- sitting in chair; no distress Lungs- mild wheezing; no respiratory distress Cardiovascular- irregular; no gallop; no JVD; no pretibial edema Abdomen- + bowel sounds, soft, nontender Extremities- no cyanosis; no calf tenderness Neuro- alert, confused, upset Skin- warm & dry . Laboratory Results: Last 24 Hours Test 11/27/17 06:32 White Blood Count 8.02 K/uL Red Blood Count 4.30 M/uL Hemoglobin 13.0 g/dL Hematocrit 39.8 % Mean Corpuscular Volume 92.6 fL Mean Corpuscular Hemoglobin 30.2 pg Mean Corpuscular Hemoglobin Concent 32.7 g/dl RDW Standard Deviation 45.4 fL RDW Coefficient of Variation 13.5 % Platelet Count 342 K/uL Mean Platelet Volume 10.1 fL Sodium Level 137 mmol/L Potassium Level 3.8 mmol/L Chloride Level 105 mmol/L Carbon Dioxide Level 26 mmol/L Anion Gap 6.0 mmol/L Blood Urea Nitrogen 36 mg/dl Creatinine 1.25 mg/dl Est Creatinine Clear Calc Drug Dose 32.5 ml/min Estimated GFR () 44.8 Estimated GFR (Non- 38.6 BUN/Creatinine Ratio 29.0 Random Glucose 86 mg/dl Calcium Level 8.8 mg/dl Assessment & Plan [employer] swab for influenza A/B Ag neg in ED, 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 Received olanzapine- stopped because of delirium. Received steroids for bronchospasm with improvement. ACUTE KIDNEY INJURY / DEHYDRATION Holding triamterene / HCTZ. Received IV fluids- stopped because of delirium. Improved. Encourage PO fluids. Follow. ATRIAL FIBRILLATION Rate controlled on atenolol. High risk for anticoagulation. HYPERTENSION BP's elevated, probably because of delirium. Holding triamterene / HCTZ. Continue atenolol. Added amlodipine. Added IV hydralazine PRN. DEMENTIA / DELIRIUM Experiencing delirium. May potential contributing factors: acute illness change of environment benzo withdrawal- takes alprazolam at least 1-2 times a day at home oseltamivir prednisone ipratropium increased dose of citalopram Low dose alprazolam with caution (because she takes it chronically at home and is at risk for withdrawal). Low dose olanzapine PRN for severe delirium when pt's safety at risk and other measures ineffective. QTc < 500 msec. Stopped IV. Stopped anticholinergic meds. Resumed previous dose of citalopram. Continue donepezil. 1:1 staffing as needed for patient safety. DEPRESSION Depression, dementia, delusional thoughts. Psychiatry consulted. FALLS PT / OT evals. VTE PROPHYLAXIS SQ enoxaparin. Ambulate. DISPOSITION To be determined. Consult Case Management. Internal Medicine follow-up with Dr. Puentes. Daughter visited later in the afternoon and given update. She is planning on discharge to home. She indicates that patient will probably decline home health services. . Current Inpatient Medications: Current Inpatient Medications Medications (Trade) Dose Ordered Sig/Dotty Route Start Time Stop Time Status Last Admin Dose Admin Enoxaparin Sodium (Lovenox Inj) 30 mg Q24H SQ 11/19/17 20:00 12/19/17 19:59 11/26/17 20:20 30 MG Acetaminophen (Tylenol Tab) 650 mg Q4H PRN PO 11/19/17 20:00 12/19/17 19:59 11/21/17 16:50 650 MG Aspirin (Ecotrin Tab) 81 mg DAILY PO 11/20/17 09:00 12/20/17 08:59 11/27/17 08:03 81 MG Atenolol (Tenormin Tab) 25 mg DAILY PO 11/20/17 09:00 12/20/17 08:59 11/27/17 08:04 25 MG Donepezil HCl (Aricept Tab) 10 mg DAILY PO 11/20/17 09:00 12/20/17 08:59 11/27/17 08:03 10 MG Buspirone HCl (Buspar Tab) 10 mg BID PO 11/19/17 21:00 3/4/18 20:59 11/27/17 08:04 10 MG Miscellaneous (Iv Fluids Completed) 1 ea PRN PRN N/A 11/19/17 23:45 11/19/18 23:44 Hydralazine HCl (HydrALAZINE INJ) 10 mg Q6H PRN IV. 11/20/17 19:15 12/20/17 19:14 11/24/17 16:11 10 MG Amlodipine Besylate (Norvasc Tab) 5 mg QAM PO 11/21/17 09:00 12/21/17 08:59 11/27/17 08:04 5 MG Alprazolam (Xanax Tab) 0.25 mg BID PO 11/21/17 21:00 12/21/17 20:59 11/27/17 08:07 0.25 MG Alprazolam (Xanax Tab) 0.25 mg Q6H PRN PO 11/21/17 10:30 12/21/17 10:29 11/25/17 11:14 0.25 MG Citalopram Hydrobromide (celeXA TAB) 20 mg QAM PO 11/22/17 09:00 12/22/17 08:59 11/27/17 08:04 20 MG Levalbuterol (Xopenex 0.63 Mg/ 3 Ml Neb) 0.63 mg Q6H PRN INH 11/21/17 10:30 12/21/17 10:29 Olanzapine (Zyprexa Zydis Od Tab) 2.5 mg Q12 PRN PO 11/21/17 10:30 12/21/17 10:29
[2017-11-27] MEDS: ENOXAPARIN 30 MG/0.3 ML SYR SQ SCH (20:37)
[2017-11-27 23:09] VITALS: BP 179/93; PULSE 65; TEMP 36.8; O2SAT 94
[2017-11-28] VITALS: O2SAT 93
[2017-11-28 00:47] VITALS: BP 124/78; PULSE 79
[2017-11-28 04:02] VITALS: BP 136/72; PULSE 75
[2017-11-28 07:13] VITALS: BP 169/62; PULSE 73; TEMP 36.7; O2SAT 93
[2017-11-28] MEDS: ASPIRIN 81 MG ECTAB PO SCH (07:31)
[2017-11-28] MEDS: DONEPEZIL HCL 10 MG TAB PO SCH (07:31)
[2017-11-28] MEDS: CITALOPRAM 20 MG TAB PO SCH (07:31)
[2017-11-28] MEDS: AMLODIPINE BESYLATE 5 MG TAB PO SCH (07:32)
[2017-11-28] MEDS: ALPRAZOLAM 0.25 MG TAB PO SCH (07:34)
[2017-11-28 14:56] VITALS: BP 169/62; PULSE 73; TEMP 36.7; O2SAT 93
--- NOTE | 2017-11-28 15:04 | Progress Note ---
Medicine Progress Note Date & Time of Visit: Nov 28, 2017 at 15:04 . Subjective Doing well. No fever. Cough improved. Confusion improved. . Objective Last 8 Hrs Date Time Temp Pulse Resp B/P (MAP) Pulse Ox O2 Delivery O2 Flow Rate FiO2 11/28/17 14:56 36.7 73 16 93 Room Air 11/28/17 08:00 Room Air 11/28/17 07:13 36.7 73 16 169/62 (97) 93 Room Air Physical Exam: General- sitting in chair; no distress Lungs- mild wheezing; no respiratory distress Cardiovascular- irregular; no gallop; no JVD; no pretibial edema Abdomen- + bowel sounds, soft, nontender Extremities- no cyanosis; no calf tenderness Neuro- alert, pleasantly confused Skin- warm & dry . Laboratory Results: Last 24 Hours Test 11/28/17 11:14 Bedside Glucose 124 mg/dl Assessment & Plan INFLUENZA Presented with cough and chest congestion. [employer] swab for influenza A/B Ag neg in ED, 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 Received olanzapine, but it was stopped because of delirium. Received steroids for bronchospasm with improvement. ACUTE KIDNEY INJURY / DEHYDRATION Serum creatinine 2.42 at time of admission. Held triamterene / HCTZ. Received IV fluids with improvement. Serum creatinine 1.25 on 11/27. Encourage PO fluids. Discharged on decreased dose of triamterene / HCTZ. Follow. ATRIAL FIBRILLATION Rate controlled on atenolol. High risk for anticoagulation. HYPERTENSION BP's elevated, probably because of delirium. Holding triamterene / HCTZ. Continue atenolol. Added amlodipine. Added IV hydralazine PRN. DEMENTIA / DELIRIUM Experienced delirium. Many potential contributing factors: acute illness change of environment benzo withdrawal- takes alprazolam at least 1-2 times a day at home oseltamivir prednisone ipratropium increased dose of citalopram Received low dose alprazolam with caution (because she takes it chronically at home and is at risk for withdrawal). Received low dose olanzapine PRN with caution. Stopped anticholinergic meds. Resumed previous dose of citalopram. Continued donepezil. Resolved by discharge. DEPRESSION Depression, dementia, delusional thoughts. Psychiatry consulted. Transitioned from citalopram to escitalopram. FALLS Received PT / OT. VTE PROPHYLAXIS Received SQ enoxaparin. Ambulating. DISPOSITION Case Management consulted. Internal Medicine follow-up with Dr. Garcia . Current Inpatient Medications: Current Inpatient Medications Medications (Trade) Dose Ordered Sig/Dotty Route Start Time Stop Time Status Last Admin Dose Admin Enoxaparin Sodium (Lovenox Inj) 30 mg Q24H SQ 11/19/17 20:00 12/19/17 19:59 11/27/17 20:37 30 MG Acetaminophen (Tylenol Tab) 650 mg Q4H PRN PO 11/19/17 20:00 12/19/17 19:59 11/21/17 16:50 650 MG Aspirin (Ecotrin Tab) 81 mg DAILY PO 11/20/17 09:00 12/20/17 08:59 11/28/17 07:31 81 MG Atenolol (Tenormin Tab) 25 mg DAILY PO 11/20/17 09:00 12/20/17 08:59 11/28/17 07:31 25 MG Donepezil HCl (Aricept Tab) 10 mg DAILY PO 11/20/17 09:00 12/20/17 08:59 11/28/17 07:31 10 MG Buspirone HCl (Buspar Tab) 10 mg BID PO 11/19/17 21:00 12/19/17 20:59 11/28/17 07:31 10 MG Miscellaneous (Iv Fluids Completed) 1 ea PRN PRN N/A 11/19/17 23:45 11/19/18 23:44 Hydralazine HCl (HydrALAZINE INJ) 10 mg Q6H PRN IV. 11/20/17 19:15 12/20/17 19:14 11/24/17 16:11 10 MG Amlodipine Besylate (Norvasc Tab) 5 mg QAM PO 11/21/17 09:00 12/21/17 08:59 11/28/17 07:32 5 MG Alprazolam (Xanax Tab) 0.25 mg BID PO 11/21/17 21:00 12/21/17 20:59 11/28/17 07:34 0.25 MG Alprazolam (Xanax Tab) 0.25 mg Q6H PRN PO 11/21/17 10:30 12/21/17 10:29 11/25/17 11:14 0.25 MG Citalopram Hydrobromide (celeXA TAB) 20 mg QAM PO 11/22/17 09:00 12/22/17 08:59 11/28/17 07:31 20 MG Levalbuterol (Xopenex 0.63 Mg/ 3 Ml Neb) 0.63 mg Q6H PRN INH 11/21/17 10:30 12/21/17 10:29 Olanzapine (Zyprexa Zydis Od Tab) 2.5 mg Q12 PRN PO 11/21/17 10:30 12/21/17 10:29
[2017-11-28] MEDS ORDERED: ESCI1TAB9 PO (15:10)
[2017-11-28] MEDS ORDERED: ALPR-411 PO (15:10)
[2017-11-28] MEDS ORDERED: TRIA37.5 PO (15:10)
--- NOTE | 2017-11-28 15:18 | Discharge Instructions ---
Discharge Instructions Date of Service Nov 28, 2017. Admission Reason for Admission: flu, dehydration . Discharge Discharge Diagnosis / Problem: flu, dehydration, depression Discharge Goals Goal(s): Increase independence, Improve disease control Activity Recommendations Activity Limitations: resume your previous activity . Instructions / Follow-Up Instructions / Follow-Up APPOINTMENTS: INTERNAL MEDICINE 12/02/2017 10:20 AM Josselyn Puentes MD OTHER INSTRUCTIONS: New pill for depression is escitalopram (Lexapro) 10 mg daily. Stop citalopram (Celexa). Change triamterene / hydrochlorothiazide (Dyazide) to Wed-Wed-Wed. Only take 1/2 pill of alprazolam (Xanax) every 12 hours as needed for anxiety. Seek medical attention if you have: * temperature above 101 * chest pain or trouble breathing * abdominal pain, nausea, vomiting * diarrhea, dark stools or bloody stools * any unanswered questions or concerns Call 911 if symptoms are severe. Call if you have any questions or problems. My cell # is [phone]. You can also reach a [facility] hospitalist on duty at [facility] 24 hours a day by calling [phone]. Please take good care of yourself. Liu Spear . Current Hospital Diet Patient's current hospital diet: AHA Diet (Heart Healthy) Discharge Diet Recommended Diet: AHA Diet (Heart Healthy) Procedures Procedures Performed: CT head- normal for age, no sign of stroke. Chest x-ray- no sign of pneumonia. Pending Studies Studies pending at discharge: no Medical Emergencies . Who to Call and When: Medical Emergencies: If at any time you feel your situation is an emergency, please call 911 immediately. . Non-Emergent Contact Non-Emergency issues call your: Primary Care Provider, Hospital Doctor . . "Provider Documentation" section prepared by Liu Spaer. . VTE Core Measure Inpt VTE Proph given/why not?: Enoxaparin (Lovenox) [place] Drug Monitoring Program Search Results: patient reviewed within database, no issues identified
--- NOTE | 2017-11-30 22:57 | Discharge Summary ---
Discharge Summary Date of Service Nov 30, 2017. Discharge Summary Admission Date: Nov 20, 2017 at 16:13 Discharge Date: Nov 28, 2017 Discharge Disposition: Home Principal Diagnosis: influenza A OTHER ACUTE DIAGNOSES: altered mental status acute kidney injury / dehydration delirium . Secondary Diagnoses/Problems: Chronic and Resolved Medical Problems: (1) Atrial fibrillation Status: Chronic (2) Chronic kidney disease (CKD), stage III (moderate) Status: Chronic (3) Dementia Status: Chronic (4) Depression Status: Chronic (5) Hypertension Status: Chronic . Procedures: CT head IV fluids IV meds PT OT . Consultations: Psychiatry . Pending Studies/Follow-Up: Please check basic metabolic profile in clinic. . Medication Reconciliation New Medications: Alprazolam (Alprazolam) 0.5 Mg Tab 0.25 MG PO BID PRN for Anxiety, #15 TAB 1 Refill New dose 11/28/17. Take only 1/2 pill every 12 hours as needed for anxiety. Escitalopram Oxalate (Lexapro) 10 Mg Tab 10 MG PO DAILY, #30 TAB 5 Refills Triamterene/Hctz (Dyazide 37.5MG/25MG) Cap 1 CAP PO 3XWK, #15 CAP 5 Refills New dose 11/28/17. Take 1 pill on Mkvdctd-Gsgdgdvzup-Joeedjr Continued Medications: Acetaminophen (Tylenol) 500 Mg Tab 1000 MG PO BID PRN for Pain, TAB Aspirin (Aspirin Ec) 81 Mg Tab 81 MG PO DAILY Atenolol (Tenormin) 25 Mg Tab 25 MG PO DAILY, TAB Buspirone Hcl (Buspirone Hcl) 10 Mg Tab 10 MG PO BID, TAB AM & HS Donepezil Hydrochloride (Aricept) 10 Mg Tab 10 MG PO HS, TAB Lisinopril (Zestril) 2.5 Mg Tab 2.5 MG PO DAILY Discontinued Medications: Alprazolam (Xanax) 0.5 Mg Tab 0.5 MG PO BID PRN for Anxiety, TAB Citalopram Hydrobromide (Citalopram Hydrobromide) 20 Mg Tab 1 TAB PO DAILY for 90 Days, #90 TAB 3 Refills Triamterene/Hctz (Triamterene/Hctz 37.5-25MG) 1 Tab Tab 1 TAB PO 5XWK, TAB TAKE SUN, MON, TU, THUR, FRI Admission Information HPI (per Admitting provider): This is an 87 year old female with a PMH of dementia, depression/anxiety, HTN, CKD stage 3 - presented to the urgent care facility at [facility] due to patient' s daughter bringing her in with a cough/chest congestion. Patient and daughter live together and as per records, they do not get along. As per clinic records, patient is more depressed than usual and she is falling more often. Records indicate that the patient was sent to the ER for a head CT due to multiple falls as well as a psychiatric evaluation. During my exam, patient states that she is doing fine, does not know why she is being forced to come to the hospital by her daughter. Unfortunately, daughter is not in the room for a history. Patient states she has some congestion, but feels fine overall. Denies depression or suicidal ideation. Geriatric Assessment Lives with - daughter Ambulation - on her own Incontinence - denies incontinence, though records indicate she has incontinence Family Support - daughter Nutrition - no issues with food, cooks on her own Mental Status - underlying dementia Depression - worsening depression as per family ADLs - performs her own ADLs . Physical Exam (per Admitting): General Appearance: no apparent distress, + obese, + pertinent finding ( mild underlying dementia noted during exam) Head: normocephalic, atraumatic Eyes: normal inspection ENT: + pertinent finding (+hard of hearing) Neck: supple Respiratory/Chest: no respiratory distress, no accessory muscle use, + rhonchi Cardiovascular: no murmur, + irregularly irregular (regular rate) Abdomen/GI: normal bowel sounds, non tender, soft Extremities/Musculoskelatal: normal capillary refill, no pedal edema Neurologic/Psych: janitor II-XII nml as tested, no motor/sensory deficits, alert , normal mood/affect, + disoriented Skin: normal color Lymphatic: no adenopathy Hospital Course INFLUENZA Presented with cough and chest congestion. SENIOR APPLICATIONS ANALYST swab for influenza A/B Ag neg in ED, 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 Received olanzapine, but it was stopped because of delirium. Received steroids for bronchospasm with improvement. ACUTE KIDNEY INJURY / DEHYDRATION Serum creatinine 2.42 at time of admission. Held triamterene / HCTZ. Received IV fluids with improvement. Serum creatinine 1.25 on 11/27. Encourage PO fluids. Discharged on decreased dose of triamterene / HCTZ. Follow. ATRIAL FIBRILLATION Rate controlled on atenolol. High risk for anticoagulation. HYPERTENSION BP's elevated, probably because of delirium. Holding triamterene / HCTZ. Continue atenolol. Added amlodipine. Added IV hydralazine PRN. DEMENTIA / DELIRIUM Experienced delirium. Many potential contributing factors: acute illness change of environment benzo withdrawal- takes alprazolam at least 1-2 times a day at home oseltamivir prednisone ipratropium increased dose of citalopram Received low dose alprazolam with caution (because she takes it chronically at home and is at risk for withdrawal). Received low dose olanzapine PRN with caution. Stopped anticholinergic meds. Resumed previous dose of citalopram. Continued donepezil. Resolved by discharge. DEPRESSION Depression, dementia, delusional thoughts. Psychiatry consulted. Transitioned from citalopram to escitalopram. FALLS Received PT / OT. VTE PROPHYLAXIS Received SQ enoxaparin. Ambulating. DISPOSITION Case Management consulted. Internal Medicine follow-up with Dr. Puentes. . Total time spent on discharge = 40 min. This includes examination of the patient, discharge planning, medication reconciliation, and communication with other providers. . Discharge Instructions Date of Service Nov 28, 2017. Admission Reason for Admission: flu, dehydration . Discharge Discharge Diagnosis / Problem: flu, dehydration, depression Discharge Goals Goal(s): Increase independence, Improve disease control Activity Recommendations Activity Limitations: resume your previous activity . Instructions / Follow-Up Instructions / Follow-Up APPOINTMENTS: INTERNAL MEDICINE 12/02/2017 10:20 AM Josselyn Puentes MD OTHER INSTRUCTIONS: New pill for depression is escitalopram (Lexapro) 10 mg daily. Stop citalopram (Celexa). Change triamterene / hydrochlorothiazide (Dyazide) to Mon-Wed-Fri. Only take 1/2 pill of alprazolam (Xanax) every 12 hours as needed for anxiety. Seek medical attention if you have: * temperature above 101 * chest pain or trouble breathing * abdominal pain, nausea, vomiting * diarrhea, dark stools or bloody stools * any unanswered questions or concerns Call 911 if symptoms are severe. Call if you have any questions or problems. My cell # is [phone]. You can also reach a [facility] hospitalist on duty at [facility] 24 hours a day by calling [phone]. Please take good care of yourself. Liu Spear . Current Hospital Diet Patient's current hospital diet: AHA Diet (Heart Healthy) Discharge Diet Recommended Diet: AHA Diet (Heart Healthy) Procedures Procedures Performed: CT head- normal for age, no sign of stroke. Chest x-ray- no sign of pneumonia. Pending Studies Studies pending at discharge: no Medical Emergencies . Who to Call and When: Medical Emergencies: If at any time you feel your situation is an emergency, please call 911 immediately. . Non-Emergent Contact Non-Emergency issues call your: Primary Care Provider, Hospital Doctor . . "Provider Documentation" section prepared by Liu Spear. . VTE Core Measure Inpt VTE Proph given/why not?: Enoxaparin (Lovenox) [place] Drug Monitoring Program Search Results: patient reviewed within database, no issues identified .
== END 2017-11-28 16:17 | disposition home or self-care (01) | DRG 202 ==
LOC: C.EDB 15:40 → C.MS2W 20:06 → EDBEDREQ 20:10 → ENRESERV 20:13 → OBSVTOIN 11-20 16:13
PROVIDERS: ADMIT Family Medicine; ATTEND Hospitalist
DX: J20.8 Acute bronchitis due to other specified organisms (principal); N17.9 Acute kidney failure, unspecified; F03.91 Unspecified dementia, unspecified severity, with behavioral disturbance; J10.1 Influenza due to other identified influenza virus with other respiratory manifestations; R29.6 Repeated falls; I48.91 Unspecified atrial fibrillation; F32.9 Major depressive disorder, single episode, unspecified; F41.9 Anxiety disorder, unspecified; E87.6 Hypokalemia; I12.9 Hypertensive chronic kidney disease with stage 1 through stage 4 chronic kidney disease, or unspecified chronic kidney disease; N18.3 Chronic kidney disease, stage 3 (moderate); Z66 Do not resuscitate; Z87.891 Personal history of nicotine dependence; Z79.82 Long term (current) use of aspirin; Z79.899 Other long term (current) drug therapy

== ENCOUNTER 2018-01-16 03:17 | Inpatient (IN) | payer OTHER ==
[~2018-01-16] VITALS: Ht 157.5 cm; Wt 85.5 kg
[~2018-01-16 03:17] MED LIST: ACET-1256 PO; ALPR-411 PO; ASPI81TA28 PO; ATEN-173 PO; BUSP-8 PO; DONE10TA12 PO; ESCI1TAB9 PO; LISI-789 PO; TRIA37.5 PO
--- NOTE | 2018-01-16 05:13 | EMERGENCY ROOM VISIT NOTE ---
History Report prepared by Benito: Trista Sinclair Under the Supervision of: Dr. Elizabeth Sepulveda D.O. First contact with patient: 03:32 Chief Complaint: ANKLE PAIN Stated Complaint: FRACTURE R ANKLE History of Present Illness The patient is an 87 year old female who presents to the Emergency Room with complaints of an episode of ankle pain starting yesterday morning. The patient' s daughter states that the patient was diagnosed with an ankle fracture yesterday morning at [facility]. She reports that she was splinted with Orthoglass and sent home. She states that she is to call the orthopedist Wednesday to see if she needs surgery. The daughter states that this morning 3 hours ago the patient called her into her room. She reports that the patient told her she had urinated down the splint and so she had taken it off. The daughter states that she called 911. She reports that EMS just put the splint back on and said that she didn't need to go to the hospital. She reports that she felt that the patient needed to be seen at a hospital. She states that she has not been able to get the patient to keep off of it and that she walks on it with her walker. The daughter denies the patient falling again. She notes that the patient has Dementia. The patient currently rates her pain as a 2/10 in severity. Source of History: family Onset: yesterday morning Position: ankle Symptom Intensity: 2/10 Quality: other (ankle fracture) Timing: other (episode) Review of Systems See HPI for pertinent positives & negatives. A total of 10 systems reviewed and were otherwise negative. Past Medical & Surgical Medical Problems: (1) Atrial fibrillation (2) Chronic kidney disease (CKD), stage III (moderate) (3) Dementia (4) Depression (5) Diabetes (6) HTN (hypertension) (7) Hypertension Surgical Problems: (1) H/O: hysterectomy Family History Diabetes mellitus Heart disease Hypertension Social History Smoking Status: Former Smoker Drug Use: none Marital Status: Housing Status: lives with family Occupation Status: retired Current/Historical Medications Scheduled Acetaminophen (Tylenol), 1,000 MG PO QAM Alprazolam (Xanax), 0.5 MG PO QAM Alprazolam (Xanax), 0.25 MG PO QPM Aspirin (Aspirin Ec), 81 MG PO DAILY Atenolol (Tenormin), 25 MG PO DAILY Buspirone Hcl (Buspirone Hcl), 10 MG PO BID Donepezil Hydrochloride (Aricept), 10 MG PO DAILY Escitalopram Oxalate (Lexapro), 20 MG PO DAILY Hydrochlorothiazide (Hydrochlorothiazide), 12.5 MG PO DAILY Lisinopril (Zestril), 10 MG PO DAILY Scheduled PRN Acetaminophen (Tylenol), 500-1,000 MG PO Q8 PRN for Pain Allergies Coded Allergies: No Known Allergies (Unverified , 11/19/17) Physical Exam Vital Signs Date Time Temp Pulse Resp B/P (MAP) Pulse Ox O2 Delivery O2 Flow Rate FiO2 01/16/18 05:47 69 18 183/79 96 Room Air 01/16/18 03:19 36.5 66 20 176/68 96 Room Air Physical Exam HEENT: Head - normocephalic and atraumatic Pupils are equal, round, and reactive to light. Extraocular eye muscles are intact, and sclera are anicteric. Nose - moist nasal mucosa without discharge. Mouth - moist buccal mucosa. Oropharynx is nonerythematous and there is no tonsillar exudate or edema noted. Neck: Supple; no JVD, nuchal rigidity, cervical lymphadenopathy. Heart: Regular rate and rhythm. There is a normal S1 and S2 with no murmurs, clicks, or gallops appreciated. Lungs: Clear to auscultation bilaterally with no wheezes, rales, or rhonchi. Abdomen: Soft, completely nontender, nondistended, with good bowel sounds. There are no palpable pulsatile masses or hepatosplenomegaly. There is no guarding, rigidity, or rebound noted. Extremities: Right ankle is deformed. Ecchymosis in different stages of healing. Pain with palpation over the lateral malleolus. No evidence of cyanosis clubbing. There are easily palpable peripheral pulses. Skin: warm and dry with good turgor and no rashes. Medical Decision & Procedures ER Provider Diagnostic Interpretation: RIGHT ANKLE X-RAY: The results were interpreted by me. Bimalleolar fracture with misalignment of the ankle mortis. Laboratory Results 01/16/18 05:10 Red Blood Count 4.26, Mean Corpuscular Volume 93.0, Mean Corpuscular Hemoglobin 30.0, Mean Corpuscular Hemoglobin Concent 32.3, Mean Platelet Volume 9.7, Neutrophils (%) (Auto) 73.1, Lymphocytes (%) (Auto) 12.5, Monocytes (%) (Auto) 12.4, Eosinophils (%) (Auto) 1.0, Basophils (%) (Auto) 0.4, Neutrophils # (Auto ) 7.34, Lymphocytes # (Auto) 1.26, Monocytes # (Auto) 1.25, Eosinophils # (Auto ) 0.10, Basophils # (Auto) 0.04 01/16/18 05:10 Test 01/16/18 05:10 White Blood Count 10.05 K/uL (4.8-10.8) Red Blood Count 4.26 M/uL (4.2-5.4) Hemoglobin 12.8 g/dL (12.0-16.0) Hematocrit 39.6 % (37-47) Mean Corpuscular Volume 93.0 fL (80-100) Mean Corpuscular Hemoglobin 30.0 pg (25-34) Mean Corpuscular Hemoglobin Concent 32.3 g/dl (32-36) Platelet Count 344 K/uL (130-400) Mean Platelet Volume 9.7 fL (7.4-10.4) Neutrophils (%) (Auto) 73.1 % Lymphocytes (%) (Auto) 12.5 % Monocytes (%) (Auto) 12.4 % Eosinophils (%) (Auto) 1.0 % Basophils (%) (Auto) 0.4 % Neutrophils # (Auto) 7.34 K/uL (1.4-6.5) Lymphocytes # (Auto) 1.26 K/uL (1.2-3.4) Monocytes # (Auto) 1.25 K/uL (0.11-0.59) Eosinophils # (Auto) 0.10 K/uL (0-0.5) Basophils # (Auto) 0.04 K/uL (0-0.2) RDW Standard Deviation 44.5 fL (36.4-46.3) RDW Coefficient of Variation 13.2 % (11.5-14.5) Immature Granulocyte % (Auto) 0.6 % Immature Granulocyte # (Auto) 0.06 K/uL (0.00-0.02) Anion Gap 8.0 mmol/L (3-11) Estimated GFR () 39.7 Estimated GFR (Non- 34.3 BUN/Creatinine Ratio 14.5 (10-20) Calcium Level 9.0 mg/dl (8.5-10.1) Total Bilirubin 0.4 mg/dl (0.2-1) Alanine Aminotransferase (ALT/SGPT) 14 U/L (12-78) Alkaline Phosphatase 61 U/L (45-117) Total Protein 7.6 gm/dl (6.4-8.2) Albumin 3.3 gm/dl (3.4-5.0) Laboratory results per my review. Medications Administered Medications (Trade) Dose Ordered Sig/Dotty Route Start Time Stop Time Status Last Admin Dose Admin Hydromorphone HCl (Dilaudid Inj) 0.5 mg NOW STAT IV 01/16/18 05:41 01/16/18 05:42 DC 01/16/18 05:51 0.5 MG Procedure 0541: Ordered Dilaudid Inj 0.5 MG IV. ECG Per My Interpretation Indication: altered mental status Rate (beats per minute): 66 Rhythm: normal sinus Findings: 1st degree AV block, no acute ischemic change, no ectopy ED Course 0343: Past medical records reviewed. The patient was evaluated in room B9. A complete history and physical exam was performed. The Ortho-Glass splint was removed. She had an x-ray of the right ankle. 0442: I reevaluated the patient and she is doing well. 0444: I discussed the patient's case with Dr. Asif -Orthopedics. He states that he would be happy to take care of it. An IV lock was initiated and labs were drawn as above. 0453: [facility] the [facility] The patient will be evaluated for further management. 0540: The patient is having pain according to nursing staff. 0541: Ordered Dilaudid Inj 0.5 MG IV. 0614: I reevaluated the patient and performed a manual reduction of the ankle. I replaced the Orthoglass splint. The patient has good capillary refill of the toes with good sensation after the splint was applied.. Medical Decision The patient is an 87 year old female who presents to the Emergency Room with complaints of an episode of ankle pain starting yesterday morning. LABS: No leukocytosis Stable H&H BUN 20 Creatinine 1.3 Glucose 95 Normal LFTs Normal Coags Potassium 3.3 This is an 87-year-old female patient presents to the emergency department with a ankle fracture dislocation. This was originally reduced yesterday at [facility] in [place]. Ortho-Glass splint was placed. Unfortunately, the patient has been bearing weight on this foot while walking with a walker. She took the splint off after she had peed on it. Since the family admits that they will not be able to prevent her from walking on that extremity, I felt she would require admission to the hospital and evaluation by orthopedics Medication Reconcilliation Current Medication List: was personally reviewed by me Blood Pressure Screening Patient's blood pressure: Elevated blood pressure Will be further monitored by the hospitalist. Consults Time Called: [phone] Consulting Physician: Dr. Laya Parry Returned Call: [phone] I discussed the patient's case with Dr. Laya Parry. He states that he would be happy to take care of it. Additional Consults: Time Called: [phone] Consulted Physician: Dr. Analy Gao Hospital[facility] Returned Call: [phone] Additional Comments: Discussed the patient's case with Dr. Analy Casey. The patient will be evaluated for further management. Impression Primary Impression: Closed fracture dislocation of ankle joint Scribe Attestation The scribe's documentation has been prepared under my direction and personally reviewed by me in its entirety. I confirm that the note above accurately reflects all work, treatment, procedures, and medical decision making performed by me. Departure Information Dispostion Being Evaluated By Hospitalist Referrals Josselyn REARDON M.D. (PCP) Patient Instructions My [facility] Problem Qualifiers Primary Impression: Closed fracture dislocation of ankle joint Encounter type: initial encounter Laterality: right Qualified Codes: S82.891A - Other fracture of right lower leg, initial encounter for closed fracture
[2018-01-16] MEDS ORDERED: LISI-461 PO (05:17)
[2018-01-16] MEDS ORDERED: HYDR12.55 PO (05:18)
[2018-01-16] MEDS ORDERED: ESCI1TAB10 PO (05:19)
[2018-01-16] MEDS ORDERED: ACET-1256 PO (05:20)
[2018-01-16] MEDS ORDERED: ALPR-411 PO ×2 (05:22→05:23)
[2018-01-16 05:28] LABS: BASO % 0.4 %; BASO ABS # 0.04 K/uL (0-0.2); HEMATOCRIT 39.6 % (37-47); HEMOGLOBIN 12.8 g/dL (12.0-16.0); IG# 0.06 K/uL (0.00-0.02); LYMPH % 12.5 %; LYMPH ABS # 1.26 K/uL (1.2-3.4); MEAN CORPUSCULAR HGB CONC 32.3 g/dl (32-36); MEAN PLATELET VOLUME 9.7 fL (7.4-10.4); MONO % 12.4 %; MONO ABS # 1.25 K/uL (0.11-0.59); NEUT % 73.1 %; NEUT ABS # 7.34 K/uL (1.4-6.5); PLATELET COUNT 344 K/uL (130-400); RED CELL DISTRIBUTION WIDTH CV 13.2 % (11.5-14.5); RED CELL DISTRIBUTION WIDTH SD 44.5 fL (36.4-46.3); WHITE BLOOD COUNT 10.05 K/uL (4.8-10.8)
[2018-01-16] MEDS ORDERED: HYDROmorphone INJ 0.5 MG/0.5 ML SYR IV STA (05:41)
[2018-01-16 05:51] LABS: ALBUMIN 3.3 gm/dl (3.4-5.0); ALKALINE PHOSPHATASE 61 U/L (45-117); ALT/SGPT 14 U/L (12-78); BLOOD UREA NITROGEN 20 mg/dl (7-18); CARBON DIOXIDE 29 mmol/L (21-32); CREATININE 1.38 mg/dl (0.60-1.20); GLUCOSE 95 mg/dl (70-99); SODIUM 135 mmol/L (136-145); TOTAL PROTEIN 7.6 gm/dl (6.4-8.2)
[2018-01-16] MEDS ORDERED: PROCHLORPERAZINE INJ 5 MG in SYRINGE 4 ML IV PRN (06:15)
[2018-01-16] MEDS ORDERED: ACETAMINOPHEN 325 MG TAB PO PRN (06:15)
[2018-01-16] MEDS ORDERED: HYDROmorphone INJ 0.5 MG/0.5 ML SYR IV PRN (06:15)
[2018-01-16] MEDS ORDERED: SODIUM CHLORIDE 0.9% 1000ML 1,000 ML IV ONE (06:15)
[2018-01-16 06:28] LABS: PTT PATIENT 26.8 SECONDS (21.0-31.0)
[2018-01-16 06:35] LABS: POTASSIUM 3.3 mmol/L (3.5-5.1)
[2018-01-16 06:40] LABS: AST/SGOT 15 U/L (15-37)
[2018-01-16 06:45] VITALS: BP 182/67; PULSE 69; TEMP 36.8; O2SAT 94; Ht 157.5 cm; Wt 85.5 kg
[2018-01-16] MEDS ORDERED: POTASSIUM CHLORIDE 10 MEQ TABCR PO STA (07:04)
[2018-01-16] MEDS ORDERED: NSS + 20MEQ KCL 1000ML 1,000 ML IV ONE (07:15)
--- NOTE | 2018-01-16 07:45 | DIAGNOSTIC IMAGING REPORT ---
RIGHT ANKLE 3 VIEWS CLINICAL HISTORY: Right ankle injury. FINDINGS: 3 views of the right ankle are obtained. No prior studies are available for comparison at the time of dictation. The skeletal structures are osteopenic. There is a distracted avulsion fracture of the medial malleolus. There is a distracted spiral fracture with mild angulation seen involving the distal fibular shaft. There is at least 10 mm of lateral distraction of the talus at the tibiotalar articulation. A small bone fragment is suggested in the lateral aspect of the joint space. A joint effusion is noted. Soft tissue edema is present around the ankle. A tiny dorsal calcaneal enthesophyte is observed. Dystrophic soft tissue calcifications are present in the posterior calf. Mild atherosclerotic calcification is observed in the regional arteries. IMPRESSION: Right ankle fracture/dislocation as above with associated soft tissue edema and joint effusion. Electronically signed by: Kamran Velez M.D. 01/16/2018 7:43 AM Dictated Date/Time: 01/16/2018 7:41 AM
--- NOTE | 2018-01-16 07:48 | DIAGNOSTIC IMAGING REPORT ---
SINGLE VIEW CHEST CLINICAL HISTORY: Renal failure. FINDINGS: An AP, portable, upright chest radiograph is compared to study dated 11/23/2017. The examination is degraded by portable technique and patient rotation. The heart is mildly enlarged and there is atherosclerotic calcification of the thoracic aorta. The pulmonary vasculature is noncongested. Left basilar atelectasis is observed. Chronic interstitial thickening is similar to previous. No airspace consolidation or large pleural effusion is identified. No pneumothorax is seen. The skeletal structures are osteopenic. There are healed left-sided rib fractures. IMPRESSION: Cardiomegaly with no acute cardiopulmonary abnormality. Electronically signed by: Kamran Velez M.D. 01/16/2018 7:45 AM Dictated Date/Time: 01/16/2018 7:44 AM
--- NOTE | 2018-01-16 08:41 | HISTORY & PHYSICAL EXAMINATION ---
DATE OF ADMISSION: 01/16/2018 PRIMARY CARE DOCTOR: Dr. Puentes. CHIEF COMPLAINT: Right ankle pain and contracture as per records. HISTORY OF PRESENT ILLNESS: History obtained from patient, daughter and records. Limited history from patient secondary to dementia and marked hearing impairment. Medical history is significant for dementia, HTN, past chronic tobacco abuse, CRI (baseline creatinine 1/2-1.3), Afib not on anticoagulation secondary to fall risk as per records. anxiety/mood disorder, prediabetes as per records. Recent confinement last November 2017 for influenza A, acute renal failure. While getting in the car yesterday, patient fell down on the right side. Subsequently the achy right lower extremity pain. No chest pain, no shortness of breath, no head trauma, no syncope. Patient [facility]. Found to have R ankle fracture. Closed reduction done at the ER. Right LE splint subsequently applied. Patient discharged home and family requested to contact local orthopedic doctor on Wednesday. At home, patient inadvertently soiled RLE splint with her urine leading her to take it off. Patient called out for help. Patient's daughter called EMS owing to their discomfort with replacing splint. EMS put the splint back on. ER evaluation not necessary as per EMS as per family. Patient was brought to the ER by family for further evaluation. At the Emergency Room, closed reduction done by ER provider. MEDICAL HISTORY: As above. 2D echo in August 2017 showed EF 55%, LV wall thickness, concentric, mild aortic valve sclerosis. Last followup with PCP in December 2017. PCP intended to refer patient back to Cardiology for re-eval of A. fib. Patient's A. fib thought to be NSR w/PACs as per initial outpatient Cardiology eval July 2017 as per records. SURGERIES: Cataract extraction, hysterectomy. HOME MEDICATIONS: Aspirin, Tylenol, atenolol, buspirone, Aricept and Restoril. ALLERGIES: No known drug allergies. FAMILY HISTORY: Diabetes. PERSONAL AND SOCIAL HISTORY: Past tobacco abuse, no chronic intake of alcoholic beverages. Lives with daughter. 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 REVIEW OF SYSTEMS: Could not be reliably obtained. FUNCTIONAL HISTORY : Although unable to do housework at her age, no unusual cp, sob on exertion at home as per daughter's account. PHYSICAL EXAMINATION: VITAL SIGNS: Blood pressure was noted to be 176/80. pulse 69, RR 18 T 37 O2 98 on room air. GENERAL: Noted to be comfortable, pleasant. Demented. Hard of hearing, obese SKIN: Somewhat akhtar, warm. HEENT: Hustler palpebral conjunctivae. No ptosis, dry mucosa. NECK: Short, supple. CHEST: Decreased breath sounds. No tenderness. HEART: Regular rate and rhythm, no murmur. ABDOMEN: Some distention. Nontender EXTREMITIES: Swelling on the right ankle, tenderness with some ecchymosis. NEUROLOGIC: Demented, but coherent, hard of hearing LABORATORY DATA: Hemoglobin was noted to be 12.8, white cell count is 10, platelets 344. Sodium noted to be 135, potassium 3.8, chloride 98, CO2 29, BUN 20, creatinine 1.3, glucose was noted to be 95. R Ankle x-ray as per my interpretation showed dislocated right ankle fracture with swelling CXR as per my interpretation cardiomegaly, no congestion EKG as per my interpretation, rate 65, normal sinus rhythm, right bundle branch block, first degree AV block, no ischemia. ASSESSMENT: 1. Traumatic right ankle fracture 2. Hypertensive urgency secondary to pain 3. hx PAF, patient currently NSR not a candidate for hydration secondary to fall risk as per records from recent confinement Patient on ASA for thromboprophylaxis. 4. Mood/anxiety disorder/dementia as per records. Patient mentation is at baseline as per family. 5. ARF on CRI. Current kidney function slightly off from baseline. 6. Hypokalemia secondary to diuretic therapy. 7. Past tobacco abuse PLAN: [facility] Orthopedics consult RE right ankle fracture. (ER provider already in touch with Dr. Asif. Surgery contemplated tomorrow January 17, 2018.) No medical contraindication to contemplated Orthopedics procedure. Patient is at low risk of cardiac complications for moderate risk procedure. Analgesia facilitate home beta robyn. Resume home aspirin for AF thromboprophylaxis once bleeding risk is deemed to be minimal and negligible pending Orthopedics evaluation. Replace potassium. Baseline UA, monitor creatinine response to gentle IV hydration. Home hold ACEI until creatinine at baseline Delirium precautions Hold parameters for sedation and confusion for home [id number] benzos/ anxiolytics DVT prophylaxis, SCDs for now RE possible surgery. Recommend pharmacologic prophylaxis with Heparin 5000 units subQ every 8 hours once bleeding risk is deemed to be minimal and negligible. DNR as per previous wishes as per daughters. Patient's daughter requesting for updates from providers. Miss Emma Ingram, contact number [phone]. [facility]
[2018-01-16] MEDS: ESCITALOPRAM OXALATE 20 MG TAB PO SCH (09:03)
[2018-01-16] MEDS: ALPRAZOLAM 0.5 MG TAB PO SCH (09:05)
--- NOTE | 2018-01-16 09:45 | ORTHOPEDIC CONSULTATION REPORT ---
DATE OF CONSULTATION: 01/16/2018 CHIEF COMPLAINT: Right ankle pain. SUBJECTIVE: The patient is an 87-year-old female who suffered a fall yesterday morning. She was seen at [facility] for x-ray and evaluation. X-rays revealed a right ankle fracture. She was placed into an Orthoglass splint and advised to follow up with orthopedics this week. Apparently last night, she awoke at home and told her daughter that she peed on her splint, so she removed it on her own. The daughter was unsure what to do, so she brought her to [facility] ED for evaluation. The patient was subsequently admitted by the medical service for medical management and further definitive orthopedic care. Currently, the patient is in bed, although she is trying to get out of bed. She is confused and it is difficult to have a conversation with her. She is not oriented to time and place. I spoke to her daughter, Emma Aviles. Home number [phone] and cell number [phone]. She states that her mother is having worsening dementia, but has good days and bad days, but unfortunately is having more bad days than good. She states she does use a walker at home occasionally, but frequently forgets to use it. She states her primary care physician is Dr. Puentes at [facility]. Otherwise, she denies any significant medical problems. Although, she does have atrial fibrillation listed on her ED H&P, although it does not appear that she is on any blood thinners other than aspirin 81 mg daily. She also has stage III kidney disease and the aforementioned dementia. I told the daughter that she is going to require operative fixation of her ankle. Her x-rays were reviewed and show a displaced bimalleolar ankle fracture with lateral subluxation of the ankle joint. Dr. Asif is tentatively planning on doing this tomorrow. We will allow the patient to eat today and make her n.p.o. after midnight and plan on operative fixation of her ankle fracture tomorrow. Dr. Asif will see and evaluate the patient later today as well.
--- NOTE | 2018-01-16 14:17 | Orthopedic Progress Note ---
Orthopedic Progress Note Date of Service Jan 16, 2018. Subjective Denies: complaints, chest pain, SOB, nausea / vomiting, light headedness, calf pain Additional Notes: Patient poor historian. Dementia with agitation. Bedside sitter present. Objective calves soft nontender, N/V intact, splint C/D/I, capillary refill less than 2 sec., toes mobile Toes pink and warm. Bedside sitter present. Splint intact. Cap refill brisk B LE. Date Time Temp Pulse Resp B/P (MAP) Pulse Ox O2 Delivery O2 Flow Rate FiO2 01/16/18 07:04 Room Air 01/16/18 06:45 36.8 69 18 182/67 94 Room Air 01/16/18 06:32 69 18 183/79 96 01/16/18 05:47 69 18 183/79 96 Room Air 01/16/18 03:19 36.5 66 20 176/68 96 Room Air Laboratory Results 24 Hours: Test 01/16/18 05:10 01/16/18 06:08 White Blood Count 10.05 K/uL Red Blood Count 4.26 M/uL Hemoglobin 12.8 g/dL Hematocrit 39.6 % Mean Corpuscular Volume 93.0 fL Mean Corpuscular Hemoglobin 30.0 pg Mean Corpuscular Hemoglobin Concent 32.3 g/dl Platelet Count 344 K/uL Mean Platelet Volume 9.7 fL Neutrophils (%) (Auto) 73.1 % Lymphocytes (%) (Auto) 12.5 % Monocytes (%) (Auto) 12.4 % Eosinophils (%) (Auto) 1.0 % Basophils (%) (Auto) 0.4 % Neutrophils # (Auto) 7.34 K/uL Lymphocytes # (Auto) 1.26 K/uL Monocytes # (Auto) 1.25 K/uL Eosinophils # (Auto) 0.10 K/uL Basophils # (Auto) 0.04 K/uL Prothromb Time International Ratio 1.0 Prothrombin Time 10.0 SECONDS Assessment & Plan Assessment: Right bimalleolar ankle fracture S/P fall Dementia with intermittent agitation Medical comorbidities Plan: Maintain splint R LE Ice and elevation 2 pillows R LE NWB R LE NPO after midnight Surgical Consent per POA To OR for ORIF tomorrow after gentle hydration and correction of low Potassium as per medical service recommendations. Thank you for the consultation. Ro Asif DO
[2018-01-16] MEDS: TRAMADOL HCL 50 MG TAB PO PRN (15:08)
--- NOTE | 2018-01-16 15:54 | Anesthesiology Progress Note ---
Anesthesia Progress Note Date of Service Jan 16, 2018. Progress Notes The patient is an 87 y/o female scheduled for ORIF of her R ankle tomorrow. The patient fell while getting out of a car with no LOC as per her daughter. PMH includes afib (now in sinus rhythm), HTN, GERD, dementia, Stage 3 kidney disease, obesity, and depression. Her CXR shows cardiomegaly. EKG shows SR with 1st degree AV block and R BBB. Her echo from August 2017 showed EF 55-59 %, L atrium dilation, concentric LVH, and grade 1 diastolic dysfunction. Labs are significant for potassium 3.3 and Cr 1.4. On exam the patient appeared comfortable and was talking but only occasionally followed commands due to her dementia. She had a MP 3 airway with a loose bottom tooth. Lungs had decreased breath sounds bilaterally. Heart was RRR. Carotids were negative for bruits. The patient's daughter was present and provided the patient's history as well as signed the anesthesia consent. The patient was consented to general anesthesia and R popliteal block. The patient is to remain NPO after midnight except for sips of water with pills. The medicine team will replete her potassium.
[2018-01-16 16:15] VITALS: O2SAT 94
[2018-01-16 16:20] VITALS: BP 192/92; PULSE 94; TEMP 37.2; O2SAT 93
[2018-01-16 16:24] VITALS: BP 185/64
[2018-01-16 19:58] VITALS: BP 195/80; PULSE 83
[2018-01-16] MEDS: HydrALAZINE HCL 20 MG/ML VIAL IV. PRN (20:01)
--- NOTE | 2018-01-16 21:32 | Progress Note ---
Medicine Progress Note Date & Time of Visit: Jan 16, 2018 at 14:10 . Subjective Confused, agitated. Unable to respond to any questions. . Objective Last 8 Hrs Date Time Temp Pulse Resp B/P (MAP) Pulse Ox O2 Delivery O2 Flow Rate FiO2 01/16/18 19:58 83 195/80 (118) 01/16/18 16:24 185/64 (104) 01/16/18 16:20 37.2 94 22 192/92 (125) 93 Room Air 01/16/18 16:15 94 Room Air Physical Exam: General- elderly female, lying in bed, agitated Lungs- clear to auscultation; no respiratory distress Cardiovascular- RRR; no gallop appreciated; no JVD; no pretibial edema Abdomen- + bowel sounds, soft, nontender Extremities- no cyanosis; no calf tenderness; right ankle splinted Neuro- alert, confused, agitated Skin- warm & dry . Laboratory Results: Last 24 Hours Test 01/16/18 05:10 01/16/18 06:08 01/16/18 08:59 White Blood Count 10.05 K/uL Red Blood Count 4.26 M/uL Hemoglobin 12.8 g/dL Hematocrit 39.6 % Mean Corpuscular Volume 93.0 fL Mean Corpuscular Hemoglobin 30.0 pg Mean Corpuscular Hemoglobin Concent 32.3 g/dl Platelet Count 344 K/uL Mean Platelet Volume 9.7 fL Neutrophils (%) (Auto) 73.1 % Lymphocytes (%) (Auto) 12.5 % Monocytes (%) (Auto) 12.4 % Eosinophils (%) (Auto) 1.0 % Basophils (%) (Auto) 0.4 % Neutrophils # (Auto) 7.34 K/uL Lymphocytes # (Auto) 1.26 K/uL Monocytes # (Auto) 1.25 K/uL Eosinophils # (Auto) 0.10 K/uL Basophils # (Auto) 0.04 K/uL RDW Standard Deviation 44.5 fL RDW Coefficient of Variation 13.2 % Immature Granulocyte % (Auto) 0.6 % Immature Granulocyte # (Auto) 0.06 K/uL Sodium Level 135 mmol/L Potassium Level mmol/L 3.3 mmol/L Chloride Level 98 mmol/L Carbon Dioxide Level 29 mmol/L Anion Gap 8.0 mmol/L Blood Urea Nitrogen 20 mg/dl Creatinine 1.38 mg/dl Estimated GFR () 39.7 Estimated GFR (Non- 34.3 BUN/Creatinine Ratio 14.5 Random Glucose 95 mg/dl Calcium Level 9.0 mg/dl Magnesium Level mg/dl 2.0 mg/dl Total Bilirubin 0.4 mg/dl Direct Bilirubin mg/dl < 0.1 mg/dl Aspartate Amino Transf (AST/SGOT) U/L 15 U/L Alanine Aminotransferase (ALT/SGPT) 14 U/L Alkaline Phosphatase 61 U/L Total Protein 7.6 gm/dl Albumin 3.3 gm/dl Prothrombin Time 10.0 SECONDS Prothromb Time International Ratio 1.0 Activated Partial Thromboplast Time 26.8 SECONDS Partial Thromboplastin Ratio 1.0 Urine Color DK YELLOW Urine Appearance CLEAR Urine pH 5.5 Urine Specific [place] 1.034 Urine Protein TRACE Urine Glucose (UA) NEG Urine Ketones TRACE Urine Occult Blood NEG Urine Nitrite NEG Urine Bilirubin NEG Urine Urobilinogen NEG Urine Leukocyte Esterase NEG Urine WBC (Auto) 1-5 /hpf Urine RBC (Auto) 0-4 /hpf Urine Hyaline Casts (Auto) 1-5 /lpf Urine Epithelial Cells (Auto) >30 /lpf Urine Bacteria (Auto) NEG Assessment & Plan ANKLE FRACTURE Orthopedics consulted. ORIF anticipated. ATRIAL FIBRILLATION History of atrial fibrillation; admission EKG showed probable sinus rhythm in the 60s. Continue atenolol. High risk for anticoagulation. HYPERTENSION BP's elevated, probably because of delirium. Continue atenolol. Added IV hydralazine PRN. DEMENTIA / DELIRIUM History of delirium associated with previous illnesses. Tried to avoid antipsychotic medications. Takes alprazolam at home on a regular basis; best not to stop it because of potential withdrawal symptoms, but also best not to increase dosage. Continued donepezil. DEPRESSION Continue escitalopram. FALL Received PT / OT. VTE PROPHYLAXIS -A-c-r-e-i-v-e-d- -S-Q- -q-o-y-r-c-g-a-r-i-n-.- -Q-t-p-c-c-l-t-i-n-g-.- SCD's [error corrected MICHELLE 01/18/18 @ 04:30] DISPOSITION Anticipated need for skilled care. Internal Medicine follow-up with Dr. Puentse. . Current Inpatient Medications: Current Inpatient Medications Medications (Trade) Dose Ordered Sig/Dotty Route Start Time Stop Time Status Last Admin Dose Admin Atenolol (Tenormin Tab) 25 mg DAILY PO 01/17/18 09:00 02/16/18 08:59 Alprazolam (Xanax Tab) 0.25 mg QPM PO 01/16/18 21:00 02/15/18 20:59 Alprazolam (Xanax Tab) 0.5 mg QAM PO 01/16/18 09:00 02/15/18 08:59 01/16/18 09:05 0.5 MG Donepezil HCl (Aricept Tab) 10 mg HS PO 01/16/18 21:00 02/15/18 20:59 Escitalopram Oxalate (Lexapro Tab) 20 mg DAILY PO 01/16/18 09:00 02/15/18 08:59 01/16/18 09:03 20 MG Buspirone HCl (Buspar Tab) 10 mg BID PO 01/16/18 09:00 02/15/18 08:59 01/16/18 09:03 10 MG Acetaminophen (Tylenol Tab) 650 mg Q4H PRN PO 01/16/18 06:15 02/15/18 06:14 Hydromorphone HCl (Dilaudid Inj) 0.5 mg Q3H PRN IV 01/16/18 06:15 01/30/18 06:14 01/16/18 18:04 0.5 MG Tramadol HCl (Ultram Tab) 25 mg Q6H PRN PO 01/16/18 06:15 02/15/18 06:14 01/16/18 15:08 25 MG Potassium Chloride/Sodium Chloride 1,000 ml @ 60 mls/hr [id number] ONCE IV 01/16/18 07:15 01/16/18 23:54 01/16/18 08:58 60 MLS/HR Potassium Chloride/Sodium Chloride 1,000 ml @ 50 mls/hr Q20H IV 01/16/18 23:55 02/15/18 23:54 Hydralazine HCl (HydrALAZINE INJ) 5 mg Q6H PRN IV. 01/16/18 19:45 02/15/18 19:44 01/16/18 20:01 5 MG
[2018-01-16] MEDS: ALPRAZOLAM 0.25 MG TAB PO SCH (21:40)
[2018-01-16] MEDS: DONEPEZIL HCL 10 MG TAB PO SCH (21:40)
[2018-01-16] MEDS: NSS + 20MEQ KCL 1000ML 1,000 ML IV SCH (23:50)
[2018-01-17] VITALS (14 sets, daily range): BP systolic 137–189; BP diastolic 60–114; PULSE 66–88; TEMP 36.7–37.6; O2SAT 87–97
[2018-01-17] MEDS: HydrALAZINE HCL 20 MG/ML VIAL IV. PRN ×2 (02:05→19:23)
[2018-01-17 05:14] LABS: BASO % 0.5 %; BASO ABS # 0.04 K/uL (0-0.2); EOS % 0.9 %; EOS ABS # 0.08 K/uL (0-0.5); HEMATOCRIT 35.1 % (37-47); HEMOGLOBIN 11.4 g/dL (12.0-16.0); IG# 0.06 K/uL (0.00-0.02); LYMPH % 15.8 %; MEAN CELL VOLUME 91.9 fL (80-100); MEAN CORPUSCULAR HEMOGLOBIN 29.8 pg (25-34); MEAN CORPUSCULAR HGB CONC 32.5 g/dl (32-36); MEAN PLATELET VOLUME 9.6 fL (7.4-10.4); MONO % 14.7 %; NEUT % 67.4 %; NEUT ABS # 5.98 K/uL (1.4-6.5); PLATELET COUNT 293 K/uL (130-400); RED CELL DISTRIBUTION WIDTH CV 13.2 % (11.5-14.5); RED CELL DISTRIBUTION WIDTH SD 44.5 fL (36.4-46.3); WHITE BLOOD COUNT 8.86 K/uL (4.8-10.8)
[2018-01-17 05:49] LABS: CALCIUM 8.6 mg/dl (8.5-10.1); CREATININE 0.95 mg/dl (0.60-1.20); POTASSIUM 3.8 mmol/L (3.5-5.1)
[2018-01-17] MEDS: ESCITALOPRAM OXALATE 20 MG TAB PO SCH (08:05)
[2018-01-17] MEDS: ALPRAZOLAM 0.5 MG TAB PO SCH (08:05)
[2018-01-17] MEDS ORDERED: DEXAMETHASONE SOD INJ 4 MG/ML VIAL ONE (11:57)
[2018-01-17] MEDS ORDERED: LIDOCAINE HCL 2% 2 ML VIAL (20MG/ML) ONE (11:57)
[2018-01-17] MEDS ORDERED: PROPOFOL IV EMULSION 10 MG/ML 20 ML VIAL IV ONE (11:57)
[2018-01-17] MEDS ORDERED: ONDANSETRON INJ 2 MG/ML 2 ML VIAL ONE ×2 (11:57→13:40)
[2018-01-17] MEDS ORDERED: MIDAZOLAM HCL 1 MG/ML 2ML VIAL ONE ×2 (11:58)
[2018-01-17] MEDS ORDERED: FENTANYL CITRATE INJ 50 MCG/1 ML 2 ML VIAL ONE ×2 (11:58→12:17)
[2018-01-17] MEDS ORDERED: BACITRACIN 50000 UNIT VIAL ONE (12:24)
[2018-01-17] MEDS ORDERED: CEFAZOLIN SOD 2000MG/15 ML IV PUSH IV ONE (12:30)
[2018-01-17] MEDS ORDERED: BUPIVACAINE 0.5 % 5 MG/1 ML PF 10ML VIAL ONE (12:33)
[2018-01-17] MEDS ORDERED: BUPIVACAINE 0.25% 30 ML VIAL ONE (12:33)
[2018-01-17] MEDS ORDERED: ONDANSETRON INJ 2 MG/ML 2 ML VIAL IV PRN (12:45)
[2018-01-17] MEDS ORDERED: HYDROmorphone INJ 2 MG/ML SYR/VIAL IV PRN (12:45)
[2018-01-17] MEDS ORDERED: LABETALOL HCL IV 5 MG/ML 20ML IV PRN (12:45)
[2018-01-17] MEDS ORDERED: NURSING VERBAL MED ORDER ONE (12:45)
[2018-01-17] MEDS ORDERED: ATROPINE SULFATE 0.1 MG/ML 5ML SYR IV PRN (12:45)
--- NOTE | 2018-01-17 12:53 | History & Physical Bridge Note ---
H&P Re-Evaluation Bridge Note: I have examined the patient, reviewed the History & Physical and in the interval since the performance of the History & Physical I have noted the following changes of clinical significance: No changes noted
[2018-01-17] MEDS ORDERED: GLYCOPYRROLATE INJ 0.2 MG/ML VIAL ONE (13:40)
[2018-01-17] MEDS ORDERED: ROCURONIUM BROMIDE 10 MG/ML 5 ML VIAL IV ONE (13:40)
[2018-01-17] MEDS ORDERED: NEOSTIGMINE METHYLSULFATE 5 MG/5 ML SYR ONE (13:40)
[2018-01-17] MEDS ORDERED: PHENYLEPHRINE 100MCG/ML 5ML SYR ONE (13:40)
[2018-01-17] MEDS ORDERED: LARYING-O-JET KIT (LTA) ONE (13:40)
[2018-01-17] MEDS ORDERED: EpHEDrine SULFATE 50MG/5ML SYR ONE (13:40)
[2018-01-17] MEDS ORDERED: LABETALOL HCL IV 5 MG/ML 20ML IV ONE (14:43)
--- NOTE | 2018-01-17 14:45 | DIAGNOSTIC IMAGING REPORT ---
R ANKLE MIN 3 VIEWS ROUTINE CLINICAL HISTORY: 87 years-old Female presenting with RT ANKLE ORIF. TECHNIQUE: 3 fluoroscopic spot image(s) obtained as part of an intraoperative procedure. COMPARISON: 01/16/2018. FINDINGS/IMPRESSION: Cortical compression plate and screw fixation of the distal fibular metadiaphysis. 2 lag screw fixation through the medial malleolus. An additional cortical screws noted through the distal fibular fracture plane. Ankle mortise intact. Please see surgical report for further details. Fluoroscopy dosage (mGy): 0.44. Fluoroscopy time: 15.4 seconds. Number of fluoroscopic spot images: 3. Electronically signed by: Jaquan Cat M.D. 01/17/2018 2:44 PM Dictated Date/Time: 01/17/2018 2:43 PM
--- NOTE | 2018-01-17 14:58 | [facility] Post Operative Brief Note ---
Immediate Operative Summary Operative Date Jan 17, 2018. Pre-Operative Diagnosis Right displaced bimalleolar ankle fracture Post-Operative Diagnosis Right displaced bimalleolar ankle fracture Procedure(s) Performed Right Open Reduction Internal Fixation Bimalleolar ankle fracture Surgeon Dr Ro Asif Premix Concrete Batcher Surgeon(s) Izabella Perez PA-C Estimated Blood Loss 10ml Findings Consistent with Post-Op Diagnosis Specimens None Drains None Anesthesia Type General Regional (Popliteal block) Complication(s) none Disposition Accompanied Pt To Recover: no Disposition: Recovery Room / PACU
[2018-01-17] MEDS ORDERED: OXYCODONE HCL IR 5 MG TAB (IMMEDIATE RELEASE) PO PRN (15:30)
--- NOTE | 2018-01-17 15:40 | Anesthesiology Progress Note ---
Anesthesia Post Op Note Date & Time Jan 17, 2018 at 15:40 Vital Signs Pain Intensity: 0 Vital Signs Past 12 Hours Date Time Temp Pulse Resp B/P (MAP) Pulse Ox O2 Delivery O2 Flow Rate FiO2 01/17/18 15:37 87 20 145/65 92 01/17/18 15:37 88 20 01/17/18 15:32 84 22 01/17/18 15:32 84 22 99 01/17/18 15:31 153/67 01/17/18 15:30 Room Air 01/17/18 15:29 150/62 01/17/18 15:27 81 19 99 01/17/18 15:27 84 19 01/17/18 15:22 75 20 01/17/18 15:22 75 20 100 01/17/18 15:21 140/52 01/17/18 15:17 75 20 99 01/17/18 15:17 75 20 01/17/18 15:16 145/55 01/17/18 15:07 36.7 79 16 132/49 100 Oxymask 7 01/17/18 09:52 92 Room Air 01/17/18 07:25 Room Air 01/17/18 07:10 37.4 66 22 160/64 (96) 94 Room Air 01/17/18 06:01 37.4 68 22 175/74 (107) Notes Mental Status: alert / awake / arousable, participated in evaluation Pt Amnestic to Procedure: Yes Nausea / Vomiting: adequately controlled Pain: adequately controlled Airway Patency, RR, SpO2: stable & adequate BP & HR: stable & adequate Hydration State: stable & adequate Anesthetic Complications: no major complications apparent
--- NOTE | 2018-01-17 17:15 | OPERATIVE REPORT ---
DATE OF OPERATION: 01/17/2018 PREOPERATIVE DIAGNOSIS: Right displaced bimalleolar ankle fracture. POSTOPERATIVE DIAGNOSIS: Same. OPERATIVE PROCEDURE: Open reduction and internal fixation, right displaced bimalleolar ankle fracture with Synthes locking plate and screws. SURGEON: Dr. Asif. MANAGER OF SCHOOL: Due to the complex nature of the procedure, the entire surgery was performed with the social services assistant of Izabella Perez PA-C. The restaurant assistant manager, under direct supervision, was involved in the actual performance of all aspects of the surgical procedure including hemostasis, tissue retraction and incision, instrument management, patient positioning, and wound closure. ANESTHESIA: General LMA with popliteal block. SPECIMENS: None. DRAINS: None. COMPLICATIONS: None. BLOOD LOSS: 10 mL. PERTINENT HISTORY: This is an 87-year-old female who sustained a twisting injury to her right ankle. She is unable to ambulate and initially went to [facility] and she had reduction and splinting. The patient was noncompliant, urinated on her splint, removed the splint and redislocated and was then seen in [facility]. She was admitted to the hospital, evaluated by the medical service and optimized for surgery. The patient is scheduled for surgery as indicated. All potential risks, benefits, complications, alternatives, rehab, potential for incomplete relief of symptoms, need for additional procedure, DVT, PE, , persistent pain, swelling, scarring, weakness, neurovascular injury, wound complications, hardware failure, nonunion, malunion, and bone fracture discussed with the patient. The patient decided to proceed with the procedure as indicated. DESCRIPTION OF PROCEDURE: After popliteal block was administered, the patient was then taken to the operative suite and placed supine on the operating table. I reviewed consent and identification of proper operative site, the patient was anesthetized, LMA was placed. Tourniquet was placed high in the right thigh over cast padding. Right lower extremity was then sterilely prepped in usual fashion, elevated and exsanguinated bandage, tourniquet inflated to 350 mmHg. Next, a 15 blade scalpel was used to make an incision over the lateral malleolus. The incision was deepened through subcutaneous tissue. Meticulous hemostasis was achieved with cautery. Full thickness skin flaps were developed. Weitlaner retractors were placed in the incision and the periosteum was then incised on the skin incision, elevated both superiorly and inferiorly and the fracture ends were then copiously irrigated with sterile normal saline until clear and a dental pick was then used to debride the fracture ends. Next, the fracture was then reduced anatomically using open reduction maneuver with the use of bone reduction forceps x2. Next, after anatomic reduction and stable alignment, a 3.5 mm fully threaded lag screw was placed from anterior to posterior, followed by application of an 8-hole 1/3 tubular Synthes locking plate to the lateral aspect of the fibula, stabilized with multiple locking bone screws. This was noted to be stable and stress test under fluoroscopy noting no evidence of widening of the ankle mortise after plate fixation and stabilization. Next, attention then directed toward the medial malleolus. A curvilinear incision was made and centered over the anterior aspect of the medial malleolus. Incision was deepened through subcutaneous tissue. Meticulous hemostasis was achieved with cautery. Full thickness skin flaps were developed. The saphenous vein was identified, freed, retracted, and protected. There was torn periosteum adjacent to the displaced medial malleolus fracture. The periosteum was sharply debrided with a 15 blade and scalpel. The fracture was opened with a dental pick and then irrigated with copious amounts of sterile normal saline until clear. Next, the reduction was then performed with a bone reduction forceps and the fragment was then stabilized with two 4.0 cannulated bone screws. These were used to compress and stabilize the fracture fragment placed under live fluoroscopic assistance. Next, guide pins were removed. Once fracture was stabilized, the locking screws were tightened laterally and the medial screws were tightened medially followed by irrigation with sterile normal saline. Final radiographs were obtained as well as final stress images, noting no widening of the ankle mortise. The medial periosteum was closed using 2-0 Vicryl, the dermis was closed using buried interrupted 3-0 Vicryl, skin was closed with nylon. A lateral incision deep periosteum was closed with 2-0 Vicryl. The dermis was closed using buried 3-0 Vicryl, skin was closed with nylon. A sterile compressive dressing and bulky Jono Ashley splint was applied with the foot held in neutral dorsiflexion. The tourniquet was released. The patient was awakened, taken to recovery in stable condition. I attest to the content of the Intraoperative Record and any orders documented therein. Any exception s are noted below.
[2018-01-17] MEDS: ALPRAZOLAM 0.25 MG TAB PO SCH (20:32)
[2018-01-17] MEDS: DONEPEZIL HCL 10 MG TAB PO SCH (20:32)
--- NOTE | 2018-01-17 21:01 | Progress Note ---
Medicine Progress Note Date & Time of Visit: Jan 17, 2018 at 16:25 . Subjective ORIF bimalleolar ankle fracture performed by Dr. Asif earlier today. Still sedated at time of my assessment. Confused, unable to answer questions. Has 1:1 staffing for her safety. . Objective Last 8 Hrs Date Time Temp Pulse Resp B/P (MAP) Pulse Ox O2 Delivery O2 Flow Rate FiO2 01/17/18 20:02 168/69 (102) 01/17/18 19:16 37.3 84 18 189/114 (139) 96 Nasal Cannula 2.0 01/17/18 18:00 37.2 84 17 151/84 (106) 96 Nasal Cannula 2.0 01/17/18 17:00 37.0 84 20 166/60 (95) 97 Nasal Cannula 2.0 01/17/18 16:35 36.7 85 20 167/84 (111) 90 Nasal Cannula 2.0 01/17/18 16:15 90 Room Air 2.0 01/17/18 16:00 36.8 88 20 160/78 (105) 87 Room Air 01/17/18 15:46 36.4 01/17/18 15:37 87 20 145/65 92 01/17/18 15:37 88 20 01/17/18 15:32 84 22 01/17/18 15:32 84 22 99 01/17/18 15:31 153/67 01/17/18 15:30 Room Air 01/17/18 15:29 150/62 01/17/18 15:27 81 19 99 01/17/18 15:27 84 19 01/17/18 15:22 75 20 01/17/18 15:22 75 20 100 01/17/18 15:21 140/52 01/17/18 15:17 75 20 99 01/17/18 15:17 75 20 01/17/18 15:16 145/55 01/17/18 15:07 36.7 79 16 132/49 100 Oxymask 7 Physical Exam: General- elderly female, lying in bed, no acute distress Lungs- clear to auscultation; no respiratory distress Cardiovascular- RRR; no gallop appreciated; no JVD; no pretibial edema Abdomen- + bowel sounds, soft, nontender Extremities- no cyanosis; no calf tenderness; right ankle splinted Neuro- sedated, confused Skin- warm & dry . Laboratory Results: Last 24 Hours Test 01/17/18 04:59 01/17/18 12:14 01/17/18 15:13 White Blood Count 8.86 K/uL Red Blood Count 3.82 M/uL Hemoglobin 11.4 g/dL Hematocrit 35.1 % Mean Corpuscular Volume 91.9 fL Mean Corpuscular Hemoglobin 29.8 pg Mean Corpuscular Hemoglobin Concent 32.5 g/dl Platelet Count 293 K/uL Mean Platelet Volume 9.6 fL Neutrophils (%) (Auto) 67.4 % Lymphocytes (%) (Auto) 15.8 % Monocytes (%) (Auto) 14.7 % Eosinophils (%) (Auto) 0.9 % Basophils (%) (Auto) 0.5 % Neutrophils # (Auto) 5.98 K/uL Lymphocytes # (Auto) 1.40 K/uL Monocytes # (Auto) 1.30 K/uL Eosinophils # (Auto) 0.08 K/uL Basophils # (Auto) 0.04 K/uL RDW Standard Deviation 44.5 fL RDW Coefficient of Variation 13.2 % Immature Granulocyte % (Auto) 0.7 % Immature Granulocyte # (Auto) 0.06 K/uL Sodium Level 134 mmol/L Potassium Level 3.8 mmol/L Chloride Level 102 mmol/L Carbon Dioxide Level 25 mmol/L Anion Gap 7.0 mmol/L Blood Urea Nitrogen 15 mg/dl Creatinine 0.95 mg/dl Est Creatinine Clear Calc Drug Dose 42.3 ml/min Estimated GFR () 62.4 Estimated GFR (Non- 53.9 BUN/Creatinine Ratio 16.3 Random Glucose 98 mg/dl Calcium Level 8.6 mg/dl 25-Hydroxy Vitamin D Total 16.7 ng/ml Bedside Glucose 90 mg/dl 108 mg/dl Assessment & Plan RIGHT ANKLE FRACTURE Orthopedics consulted. ORIF performed. Postoperative care as directed by Orthopedics. OSTEOPOROSIS 25-OH vitamin D level 16.7. Start ergocalciferol 50,000 units weekly, then titrate. ATRIAL FIBRILLATION History of atrial fibrillation; admission EKG showed probable sinus rhythm in the 60s. Continue atenolol. High risk for anticoagulation. HYPERTENSION BP's elevated at times, probably because of delirium. Continue atenolol and lisinopril. IV hydralazine PRN. DEMENTIA / DELIRIUM History of delirium associated with previous illnesses. Tried to avoid antipsychotic medications. Takes alprazolam at home on a regular basis; best not to stop it because of potential withdrawal symptoms, but also best not to increase dosage. Continued donepezil. DEPRESSION Continue escitalopram. FALL Received PT / OT. VTE PROPHYLAXIS SCD's ordered preop. Add SQ enoxaparin postop. DISPOSITION Anticipated need for skilled care. Internal Medicine follow-up with Dr. Puentes. . Current Inpatient Medications: Current Inpatient Medications Medications (Trade) Dose Ordered Sig/Dotty Route Start Time Stop Time Status Last Admin Dose Admin Atenolol (Tenormin Tab) 25 mg DAILY PO 01/17/18 09:00 02/16/18 08:59 01/17/18 08:05 25 MG Alprazolam (Xanax Tab) 0.25 mg QPM PO 01/16/18 21:00 02/15/18 20:59 01/17/18 20:32 0.25 MG Alprazolam (Xanax Tab) 0.5 mg QAM PO 01/16/18 09:00 02/15/18 08:59 01/17/18 08:05 0.5 MG Donepezil HCl (Aricept Tab) 10 mg HS PO 01/16/18 21:00 02/15/18 20:59 01/17/18 20:32 10 MG Escitalopram Oxalate (Lexapro Tab) 20 mg DAILY PO 01/16/18 09:00 02/15/18 08:59 01/17/18 08:05 20 MG Buspirone HCl (Buspar Tab) 10 mg BID PO 01/16/18 09:00 02/15/18 08:59 01/17/18 20:32 10 MG Acetaminophen (Tylenol Tab) 650 mg Q4H PRN PO 01/16/18 06:15 02/15/18 06:14 Hydromorphone HCl (Dilaudid Inj) 0.5 mg Q3H PRN IV 01/16/18 06:15 01/30/18 06:14 01/16/18 18:04 0.5 MG Tramadol HCl (Ultram Tab) 25 mg Q6H PRN PO 01/16/18 06:15 02/15/18 06:14 01/16/18 15:08 25 MG Potassium Chloride/Sodium Chloride 1,000 ml @ 50 mls/hr Q20H IV 01/16/18 23:55 02/15/18 23:54 01/16/18 23:50 50 MLS/HR Hydralazine HCl (HydrALAZINE INJ) 5 mg Q6H PRN IV. 01/16/18 19:45 02/15/18 19:44 01/17/18 19:23 5 MG Lisinopril (Zestril Tab) 10 mg DAILY PO 01/18/18 09:00 02/17/18 08:59 Oxycodone HCl (Roxicodone Immediate Rel Tab) 5 mg Q4 PRN PO 01/17/18 15:30 01/31/18 15:29
[2018-01-17] MEDS: NSS + 20MEQ KCL 1000ML 1,000 ML IV SCH (23:36)
[2018-01-18] VITALS (8 sets, daily range): BP systolic 134–178; BP diastolic 60–79; PULSE 80–101; TEMP 36.6–38.7; O2SAT 91–96
[2018-01-18 07:09] LABS: CALCIUM 8.2 mg/dl (8.5-10.1); CREATININE 1.09 mg/dl (0.60-1.20); POTASSIUM 4.2 mmol/L (3.5-5.1)
[2018-01-18] MEDS: ESCITALOPRAM OXALATE 20 MG TAB PO SCH (08:17)
[2018-01-18] MEDS: ALPRAZOLAM 0.5 MG TAB PO SCH (08:17)
[2018-01-18] MEDS: LISINOPRIL 10 MG TAB PO SCH (08:17)
[2018-01-18] MEDS: ENOXAPARIN 40 MG/0.4 ML SYR SQ SCH (08:21)
--- NOTE | 2018-01-18 08:41 | Orthopedic Progress Note ---
Orthopedic Progress Note Date of Service Jan 18, 2018. Subjective Post OP Day: 1 Reports: feeling well, Denies: complaints Additional Notes: Pt eating breakfast with help from staff. No complaints. Pleasantly confused about when she had the surgery. Objective calves soft nontender, N/V intact, splint C/D/I, toes mobile Follows commands. Moving toes well on the right foot. Date Time Temp Pulse Resp B/P (MAP) Pulse Ox O2 Delivery O2 Flow Rate FiO2 01/18/18 07:22 36.7 81 16 152/76 (101) 93 Room Air 01/18/18 07:15 Room Air 01/18/18 04:53 37.0 01/18/18 03:52 38.3 91 Room Air 01/18/18 03:16 Room Air 01/18/18 03:10 38.7 101 22 149/63 (91) 96 Nasal Cannula 1.5 01/18/18 01:16 26 01/17/18 23:34 Nasal Cannula 1.0 01/17/18 23:05 36.8 81 20 162/69 (100) 95 Nasal Cannula 2.0 01/17/18 20:02 168/69 (102) 01/17/18 19:16 37.3 84 18 189/114 (139) 96 Nasal Cannula 2.0 01/17/18 18:00 37.2 84 17 151/84 (106) 96 Nasal Cannula 2.0 01/17/18 17:00 37.0 84 20 166/60 (95) 97 Nasal Cannula 2.0 01/17/18 16:35 36.7 85 20 167/84 (111) 90 Nasal Cannula 2.0 01/17/18 16:15 90 Room Air 2.0 01/17/18 16:00 36.8 88 20 160/78 (105) 87 Room Air 01/17/18 15:46 36.4 01/17/18 15:37 87 20 145/65 92 01/17/18 15:37 88 20 01/17/18 15:32 84 22 01/17/18 15:32 84 22 99 01/17/18 15:31 153/67 01/17/18 15:30 Room Air 01/17/18 15:29 150/62 01/17/18 15:27 81 19 99 01/17/18 15:27 84 19 01/17/18 15:22 75 20 01/17/18 15:22 75 20 100 01/17/18 15:21 140/52 01/17/18 15:17 75 20 99 01/17/18 15:17 75 20 01/17/18 15:16 145/55 01/17/18 15:07 36.7 79 16 132/49 100 Oxymask 7 01/17/18 09:52 92 Room Air Assessment & Plan Assessment: POD 1 s/p ORIF Right bimalleolar ankle fracture S/P fall Dementia with intermittent agitation Medical comorbidities Plan: PT/OT as able Ice and elevation 2 pillows R LE NWB R LE Inhouse Planning Pain Management: Dilaudid, Oxy IR DVT Prophylaxis: TEDs, SCDs, Lovenox
--- NOTE | 2018-01-18 08:48 | Consultant Recommendations ---
Color Expert Recommendations Date of Service Jan 18, 2018. Color Expert Recommendations ACTIVITY RECOMMENDATIONS: * You will be NON WEIGHTBEARING on the right foot for 4-6 weeks. Use a walker to to help with ambulation. SPECIAL CARE INSTRUCTIONS: * Some drainage onto the dressing is normal and is no cause for alarm. * Some swelling is natural especially after walking. When resting, keep your foot elevated above the level of your heart. * Call the doctor's office at if you notice increased drainage, fever over 101 degrees F. or severe constant pain. BANDAGE: * Leave bandage/cast in place unless otherwise directed. * Keep bandage/cast dry at all times. FOLLOW UP VISIT: If appointment is not already scheduled: Please call [facility] to make a follow-up appointment after your surgery at .
[2018-01-18] MEDS ORDERED: ERGOCALCIFEROL 50,000 INTER.UNIT CAP PO SCH (09:00)
[2018-01-18] MEDS: TRAMADOL HCL 50 MG TAB PO PRN (12:11)
--- NOTE | 2018-01-18 14:31 | Progress Note ---
Medicine Progress Note Date & Time of Visit: Jan 18, 2018 at 14:19. Subjective 87-year-old female status post fall on right side with subsequent bimalleolar fracture of the right lower extremity. She is status post and appears to be doing well postoperatively. She only reports pain in her foot which appears to be controlled with pain medication. She is not oriented but is alert and conversant. She requires assistance with eating but is tolerating food. Daughter is at bedside and reports patient was ambulating without assistive device at home, however patient appears to have difficulties even sitting up in the chair. She is moving all extremities equally and daughter states mentation is at baseline Objective Last 8 Hrs Date Time Temp Pulse Resp B/P (MAP) Pulse Ox O2 Delivery O2 Flow Rate FiO2 01/18/18 12:00 37.2 80 16 157/76 (103) 96 Room Air 01/18/18 07:22 36.7 81 16 152/76 (101) 93 Room Air 01/18/18 07:15 Room Air Physical Exam: GEN: obese, in no acute distress, alert and disoriented, pleasant disposition HEENT: NC/AT, pupils are equal bilaterally, normal sclerae, MMM CARDIO: reg rate, S1/2 heard without m/g/r LUNGS: CTA bilaterally, no crackles, rales or wheezes, good diaphragmatic excursion ABD: soft, non-tender, non-distended, no rebound or guarding, +BS EXTREMITY: RLE: in hard cast, toes sensation intact and toes are warm, LLE warm and well-perfused without erythema. NEURO: CN 2-12 grossly intact, mentation at baseline but not able to follow instructions. MUSC: generalized weakness including poor core body strength, difficulty sitting up on her own. SKIN: warm and dry and surgical wound as above. Laboratory Results: 01/17/18 04:59 Red Blood Count 3.82, Mean Corpuscular Volume 91.9, Mean Corpuscular Hemoglobin 29.8, Mean Corpuscular Hemoglobin Concent 32.5, Mean Platelet Volume 9.6, Neutrophils (%) (Auto) 67.4, Lymphocytes (%) (Auto) 15.8, Monocytes (%) (Auto) 14.7, Eosinophils (%) (Auto) 0.9, Basophils (%) (Auto) 0.5, Neutrophils # (Auto ) 5.98, Lymphocytes # (Auto) 1.40, Monocytes # (Auto) 1.30, Eosinophils # (Auto ) 0.08, Basophils # (Auto) 0.04 01/18/18 06:10 Test 01/16/18 05:10 01/16/18 06:08 01/16/18 08:59 01/17/18 04:59 Total Bilirubin 0.4 mg/dl (0.2-1) Alanine Aminotransferase (ALT/SGPT) 14 U/L (12-78) Alkaline Phosphatase 61 U/L (45-117) Total Protein 7.6 gm/dl (6.4-8.2) Albumin 3.3 gm/dl (3.4-5.0) Prothrombin Time 10.0 SECONDS (9.0-12.0) Prothromb Time International Ratio 1.0 (0.9-1.1) Activated Partial Thromboplast Time 26.8 SECONDS (21.0-31.0) Partial Thromboplastin Ratio 1.0 Magnesium Level 2.0 mg/dl (1.8-2.4) Direct Bilirubin < 0.1 mg/dl (0-0.2) Aspartate Amino Transf (AST/SGOT) 15 U/L (15-37) Urine Color DK YELLOW Urine Appearance CLEAR (CLEAR) Urine pH 5.5 (4.5-7.5) Urine Specific [place] 1.034 (1.000-1.030) Urine Protein TRACE (NEG) Urine Glucose (UA) NEG (NEG) Urine Ketones TRACE (NEG) Urine Occult Blood NEG (NEG) Urine Nitrite NEG (NEG) Urine Bilirubin NEG (NEG) Urine Urobilinogen NEG (NEG) Urine Leukocyte Esterase NEG (NEG) Urine WBC (Auto) 1-5 /hpf (0-5) Urine RBC (Auto) 0-4 /hpf (0-4) Urine Hyaline Casts (Auto) 1-5 /lpf (0-5) Urine Epithelial Cells (Auto) >30 /lpf (0-5) Urine Bacteria (Auto) NEG (NEG) White Blood Count 8.86 K/uL (4.8-10.8) Red Blood Count 3.82 M/uL (4.2-5.4) Hemoglobin 11.4 g/dL (12.0-16.0) Hematocrit 35.1 % (37-47) Mean Corpuscular Volume 91.9 fL (80-100) Mean Corpuscular Hemoglobin 29.8 pg (25-34) Mean Corpuscular Hemoglobin Concent 32.5 g/dl (32-36) Platelet Count 293 K/uL (130-400) Mean Platelet Volume 9.6 fL (7.4-10.4) Neutrophils (%) (Auto) 67.4 % Lymphocytes (%) (Auto) 15.8 % Monocytes (%) (Auto) 14.7 % Eosinophils (%) (Auto) 0.9 % Basophils (%) (Auto) 0.5 % Neutrophils # (Auto) 5.98 K/uL (1.4-6.5) Lymphocytes # (Auto) 1.40 K/uL (1.2-3.4) Monocytes # (Auto) 1.30 K/uL (0.11-0.59) Eosinophils # (Auto) 0.08 K/uL (0-0.5) Basophils # (Auto) 0.04 K/uL (0-0.2) RDW Standard Deviation 44.5 fL (36.4-46.3) RDW Coefficient of Variation 13.2 % (11.5-14.5) Immature Granulocyte % (Auto) 0.7 % Immature Granulocyte # (Auto) 0.06 K/uL (0.00-0.02) 25-Hydroxy Vitamin D Total 16.7 ng/ml (30-100) Test 01/17/18 15:13 01/18/18 06:10 Bedside Glucose 108 mg/dl (70-90) Anion Gap 7.0 mmol/L (3-11) Est Creatinine Clear Calc Drug Dose 36.9 ml/min Estimated GFR () 52.9 Estimated GFR (Non- 45.6 BUN/Creatinine Ratio 17.1 (10-20) Calcium Level 8.2 mg/dl (8.5-10.1) Last 24 Hours Test 01/17/18 15:13 01/18/18 06:10 Bedside Glucose 108 mg/dl Sodium Level 134 mmol/L Potassium Level 4.2 mmol/L Chloride Level 102 mmol/L Carbon Dioxide Level 25 mmol/L Anion Gap 7.0 mmol/L Blood Urea Nitrogen 19 mg/dl Creatinine 1.09 mg/dl Est Creatinine Clear Calc Drug Dose 36.9 ml/min Estimated GFR () 52.9 Estimated GFR (Non- 45.6 BUN/Creatinine Ratio 17.1 Random Glucose 102 mg/dl Calcium Level 8.2 mg/dl Assessment & Plan 87-year-old female status post fall on right side with subsequent bimalleolar fracture of the right lower extremity. She is status post and appears to be doing well postoperatively. She only reports pain in her foot which appears to be controlled with pain medication. She is not oriented but is alert and conversant. She requires assistance with eating but is tolerating food. Daughter is at bedside and reports patient was ambulating without assistive device at home, however patient appears to have difficulties even sitting up in the chair. She is moving all extremities equally and daughter states mentation is at baseline 1. Right bimalleolar fracture status post mechanical fall-ORIF performed yesterday. Postoperative care as directed by orthopedics. Postoperative pain controlled with oxycodone however, in setting of dementia will add scheduled Tylenol to minimize use of narcotics. 2. Vitamin D deficiency-ergocalciferol 50,000 units weekly was started. We will continue this for 12 weeks. 3. Osteoporosis-continue calcium and vitamin D supplementation 4. Dementia-advanced. Patient unable to follow instructions and is very hard of hearing. Daughter helps to interpret. She is fine with rehab if required. Continue alprazolam per home regimen to avoid withdrawal symptoms. Avoid oxycodone and alprazolam together. Continue donepezil. 5. History of atrial fibrillation-continue atenolol, patient is high risk for anticoagulation. 6. Hypertension-controlled, continue good pain control regimen. Continue atenolol and lisinopril. 7. Depression-continue Lexapro. DVT prophylaxis-Lovenox DO NOT RESUSCITATE Disposition-pending PT/OT evaluation, however, likely will need rehab or sniff at discharge. This was discussed with daughter who is fine with that option. [facility] Consultants: Maria De Jesus. Current Inpatient Medications: Current Inpatient Medications Medications (Trade) Dose Ordered Sig/Dotty Route Start Time Stop Time Status Last Admin Dose Admin Atenolol (Tenormin Tab) 25 mg DAILY PO 01/17/18 09:00 02/16/18 08:59 01/18/18 08:17 25 MG Alprazolam (Xanax Tab) 0.25 mg QPM PO 01/16/18 21:00 02/15/18 20:59 01/17/18 20:32 0.25 MG Alprazolam (Xanax Tab) 0.5 mg QAM PO 01/16/18 09:00 02/15/18 08:59 01/18/18 08:17 0.5 MG Donepezil HCl (Aricept Tab) 10 mg HS PO 01/16/18 21:00 02/15/18 20:59 01/17/18 20:32 10 MG Escitalopram Oxalate (Lexapro Tab) 20 mg DAILY PO 01/16/18 09:00 02/15/18 08:59 01/18/18 08:17 20 MG Buspirone HCl (Buspar Tab) 10 mg BID PO 01/16/18 09:00 02/15/18 08:59 01/18/18 08:18 10 MG Acetaminophen (Tylenol Tab) 650 mg Q4H PRN PO 01/16/18 06:15 02/15/18 06:14 01/18/18 03:18 650 MG Hydromorphone HCl (Dilaudid Inj) 0.5 mg Q3H PRN IV 01/16/18 06:15 01/30/18 06:14 01/16/18 18:04 0.5 MG Tramadol HCl (Ultram Tab) 25 mg Q6H PRN PO 01/16/18 06:15 02/15/18 06:14 01/18/18 12:11 25 MG Potassium Chloride/Sodium Chloride 1,000 ml @ 50 mls/hr Q20H IV 01/16/18 23:55 02/15/18 23:54 01/17/18 23:36 50 MLS/HR Hydralazine HCl (HydrALAZINE INJ) 5 mg Q6H PRN IV. 01/16/18 19:45 02/15/18 19:44 01/17/18 19:23 5 MG Lisinopril (Zestril Tab) 10 mg DAILY PO 01/18/18 09:00 02/17/18 08:59 01/18/18 08:17 10 MG Oxycodone HCl (Roxicodone Immediate Rel Tab) 5 mg Q4 PRN PO 01/17/18 15:30 01/31/18 15:29 Ergocalciferol (Vitamin D Cap) 50,000 interunit Q7D PO 01/18/18 09:00 02/17/18 08:59 01/18/18 08:20 50,000 INTERUNIT Enoxaparin Sodium (Lovenox Inj) 40 mg QAM SQ 01/18/18 09:00 02/17/18 08:59 01/18/18 08:21 40 MG
[2018-01-18] MEDS: ACETAMINOPHEN 325 MG TAB PO SCH ×2 (16:11→21:23)
[2018-01-18] MEDS: ALPRAZOLAM 0.25 MG TAB PO SCH (21:00)
[2018-01-18] MEDS: DONEPEZIL HCL 10 MG TAB PO SCH (21:22)
[2018-01-19 00:15] VITALS: O2SAT 91
[2018-01-19] MEDS: ACETAMINOPHEN 325 MG TAB PO SCH ×3 (06:24→22:34)
[2018-01-19 07:22] LABS: CALCIUM 8.3 mg/dl (8.5-10.1); CREATININE 0.88 mg/dl (0.60-1.20); POTASSIUM 4.2 mmol/L (3.5-5.1)
[2018-01-19 08:14] VITALS: BP 148/81; PULSE 69; TEMP 36.6; O2SAT 95
[2018-01-19] MEDS: ESCITALOPRAM OXALATE 20 MG TAB PO SCH (08:41)
[2018-01-19] MEDS: ALPRAZOLAM 0.5 MG TAB PO SCH (08:42)
[2018-01-19] MEDS: LISINOPRIL 10 MG TAB PO SCH (08:42)
[2018-01-19] MEDS: ENOXAPARIN 40 MG/0.4 ML SYR SQ SCH (08:42)
--- NOTE | 2018-01-19 11:07 | Orthopedic Progress Note ---
Orthopedic Progress Note Date of Service Jan 19, 2018. Subjective Post OP Day: 2 Reports: feeling well, pain controlled w PO medications, Denies: complaints, chest pain, SOB, nausea / vomiting, light headedness, calf pain Objective calves soft nontender, N/V intact, capillary refill less than 2 sec., dressing C /D/I, A&O x3, toes mobile Date Time Temp Pulse Resp B/P (MAP) Pulse Ox O2 Delivery O2 Flow Rate FiO2 01/19/18 08:14 36.6 69 16 148/81 (103) 95 Room Air 01/19/18 07:25 Room Air 01/19/18 00:15 91 Room Air 1.5 01/18/18 22:54 36.6 84 16 154/75 (101) 91 Room Air 01/18/18 19:05 37.1 83 18 134/60 (84) 91 Room Air 01/18/18 16:18 Room Air 01/18/18 15:28 37.5 90 18 178/79 (112) 92 Room Air 01/18/18 12:00 37.2 80 16 157/76 (103) 96 Room Air Assessment & Plan Assessment: POD 2 s/p ORIF Right bimalleolar ankle fracture S/P fall Dementia with intermittent agitation Medical comorbidities Plan: PT/OT as able Ice and elevation 2 pillows R LE NWB R LE Ortho will sign off, please see consult D/C instructions, thank you. Inhouse Planning Pain Management: Dilaudid, Oxy IR DVT Prophylaxis: TEDs, SCDs, Lovenox
[2018-01-19 15:02] VITALS: BP 182/103; PULSE 62; TEMP 37.4; O2SAT 96
[2018-01-19 15:03] VITALS: BP 161/81
[2018-01-19 15:29] VITALS: BP 161/81; PULSE 62; TEMP 37.4; O2SAT 96
[2018-01-19] MEDS: ALPRAZOLAM 0.25 MG TAB PO SCH (21:00)
[2018-01-19] MEDS: DONEPEZIL HCL 10 MG TAB PO SCH (22:33)
--- NOTE | 2018-01-19 23:15 | Progress Note ---
Medicine Progress Note Date & Time of Visit: Jan 19, 2018 at 1400. Subjective 87-year-old female status post fall on right side with subsequent bimalleolar fracture of the right lower extremity. She is status post ankle repair and appears to be doing well postoperatively. She is alert and currently disoriented so no history can be obtained. She denies pain after being put on scheduled Tylenol yesterday she is tolerating food. She is currently saying that she is at the [employer] is waiting for her daughter to pick her up. She is unable to follow directions or be reoriented easily. Per nursing staff she is not combative and has been doing well. She has not been requiring one-to- one. Objective Physical Exam: GEN: obese, in no acute distress, alert and disoriented, pleasant disposition, appears upset with her daughter HEENT: NC/AT, pupils are equal bilaterally, normal sclerae, MMM CARDIO: reg rate, S1/2 heard without m/g/r LUNGS: CTA bilaterally, no crackles, rales or wheezes, good diaphragmatic excursion ABD: soft, non-tender, non-distended, no rebound or guarding, +BS EXTREMITY: RLE: in hard cast, patient cannot follow instructions to wiggle her toes and cannot tell me about sensation, toes are warm to touch, LLE warm and well-perfused without erythema. NEURO: CN 2-12 grossly intact, patient is oriented not able to follow instructions MUSC: generalized weakness including poor core body strength, difficulty sitting up on her own but appears improved today SKIN: warm and dry and surgical wound as above. Laboratory Results: 01/17/18 04:59 Red Blood Count 3.82, Mean Corpuscular Volume 91.9, Mean Corpuscular Hemoglobin 29.8, Mean Corpuscular Hemoglobin Concent 32.5, Mean Platelet Volume 9.6, Neutrophils (%) (Auto) 67.4, Lymphocytes (%) (Auto) 15.8, Monocytes (%) (Auto) 14.7, Eosinophils (%) (Auto) 0.9, Basophils (%) (Auto) 0.5, Neutrophils # (Auto ) 5.98, Lymphocytes # (Auto) 1.40, Monocytes # (Auto) 1.30, Eosinophils # (Auto ) 0.08, Basophils # (Auto) 0.04 01/19/18 06:24 Test 01/16/18 05:10 01/16/18 06:08 01/16/18 08:59 01/17/18 04:59 Total Bilirubin 0.4 mg/dl (0.2-1) Alanine Aminotransferase (ALT/SGPT) 14 U/L (12-78) Alkaline Phosphatase 61 U/L (45-117) Total Protein 7.6 gm/dl (6.4-8.2) Albumin 3.3 gm/dl (3.4-5.0) Prothrombin Time 10.0 SECONDS (9.0-12.0) Prothromb Time International Ratio 1.0 (0.9-1.1) Activated Partial Thromboplast Time 26.8 SECONDS (21.0-31.0) Partial Thromboplastin Ratio 1.0 Magnesium Level 2.0 mg/dl (1.8-2.4) Direct Bilirubin < 0.1 mg/dl (0-0.2) Aspartate Amino Transf (AST/SGOT) 15 U/L (15-37) Urine Color DK YELLOW Urine Appearance CLEAR (CLEAR) Urine pH 5.5 (4.5-7.5) Urine Specific [place] 1.034 (1.000-1.030) Urine Protein TRACE (NEG) Urine Glucose (UA) NEG (NEG) Urine Ketones TRACE (NEG) Urine Occult Blood NEG (NEG) Urine Nitrite NEG (NEG) Urine Bilirubin NEG (NEG) Urine Urobilinogen NEG (NEG) Urine Leukocyte Esterase NEG (NEG) Urine WBC (Auto) 1-5 /hpf (0-5) Urine RBC (Auto) 0-4 /hpf (0-4) Urine Hyaline Casts (Auto) 1-5 /lpf (0-5) Urine Epithelial Cells (Auto) >30 /lpf (0-5) Urine Bacteria (Auto) NEG (NEG) White Blood Count 8.86 K/uL (4.8-10.8) Red Blood Count 3.82 M/uL (4.2-5.4) Hemoglobin 11.4 g/dL (12.0-16.0) Hematocrit 35.1 % (37-47) Mean Corpuscular Volume 91.9 fL (80-100) Mean Corpuscular Hemoglobin 29.8 pg (25-34) Mean Corpuscular Hemoglobin Concent 32.5 g/dl (32-36) Platelet Count 293 K/uL (130-400) Mean Platelet Volume 9.6 fL (7.4-10.4) Neutrophils (%) (Auto) 67.4 % Lymphocytes (%) (Auto) 15.8 % Monocytes (%) (Auto) 14.7 % Eosinophils (%) (Auto) 0.9 % Basophils (%) (Auto) 0.5 % Neutrophils # (Auto) 5.98 K/uL (1.4-6.5) Lymphocytes # (Auto) 1.40 K/uL (1.2-3.4) Monocytes # (Auto) 1.30 K/uL (0.11-0.59) Eosinophils # (Auto) 0.08 K/uL (0-0.5) Basophils # (Auto) 0.04 K/uL (0-0.2) RDW Standard Deviation 44.5 fL (36.4-46.3) RDW Coefficient of Variation 13.2 % (11.5-14.5) Immature Granulocyte % (Auto) 0.7 % Immature Granulocyte # (Auto) 0.06 K/uL (0.00-0.02) 25-Hydroxy Vitamin D Total 16.7 ng/ml (30-100) Test 01/17/18 15:13 01/19/18 06:24 Bedside Glucose 108 mg/dl (70-90) Anion Gap 8.0 mmol/L (3-11) Est Creatinine Clear Calc Drug Dose 45.7 ml/min Estimated GFR () 68.5 Estimated GFR (Non- 59.1 BUN/Creatinine Ratio 20.4 (10-20) Calcium Level 8.3 mg/dl (8.5-10.1) Last 24 Hours Test 01/19/18 06:24 Sodium Level 134 mmol/L Potassium Level 4.2 mmol/L Chloride Level 102 mmol/L Carbon Dioxide Level 25 mmol/L Anion Gap 8.0 mmol/L Blood Urea Nitrogen 18 mg/dl Creatinine 0.88 mg/dl Est Creatinine Clear Calc Drug Dose 45.7 ml/min Estimated GFR () 68.5 Estimated GFR (Non- 59.1 BUN/Creatinine Ratio 20.4 Random Glucose 87 mg/dl Calcium Level 8.3 mg/dl Assessment & Plan 87-year-old female status post fall on right side with subsequent bimalleolar fracture of the right lower extremity. She is status post ankle repair and appears to be doing well postoperatively. She is alert and currently disoriented so no history can be obtained. She denies pain after being put on scheduled Tylenol yesterday she is tolerating food. [facility] is [facility] daughter to pick her up. She is unable to follow directions or be reoriented easily. Per nursing staff she is not combative and has been doing well. She has not been requiring one-to- one. 1. Right bimalleolar fracture status post mechanical fall-ORIF on 01/17. Postoperative care as directed by orthopedics. Postoperative pain controlled with scheduled Tylenol. Narcotics have been avoided. 2. Vitamin D deficiency-ergocalciferol 50,000 units weekly was started. We will continue this for 12 weeks. 3. Osteoporosis-continue calcium and vitamin D supplementation 4. Dementia-advanced. Patient unable to follow instructions and is very hard of hearing. Continue alprazolam per home regimen to avoid withdrawal symptoms. Avoid oxycodone and alprazolam together. Continue donepezil. 5. History of atrial fibrillation-continue atenolol, patient is high risk for anticoagulation. 6. Hypertension-controlled, continue good pain control regimen. Continue atenolol and lisinopril. 7. Depression-continue Lexapro. DVT prophylaxis-Lovenox DO NOT RESUSCITATE Disposition-likely to SNF in [facility].m. [facility] Consult[facility]: Maria De Jesus. Current Inpatient Medications: Current Inpatient Medications Medications (Trade) Dose Ordered Sig/Dotty Route Start Time Stop Time Status Last Admin Dose Admin Atenolol (Tenormin Tab) 25 mg DAILY PO 01/17/18 09:00 02/16/18 08:59 01/19/18 08:41 25 MG Alprazolam (Xanax Tab) 0.25 mg QPM PO 01/16/18 21:00 02/15/18 20:59 01/17/18 20:32 0.25 MG Alprazolam (Xanax Tab) 0.5 mg QAM PO 01/16/18 09:00 02/15/18 08:59 01/19/18 08:42 0.5 MG Donepezil HCl (Aricept Tab) 10 mg HS PO 01/16/18 21:00 02/15/18 20:59 01/19/18 22:33 10 MG Escitalopram Oxalate (Lexapro Tab) 20 mg DAILY PO 01/16/18 09:00 02/15/18 08:59 01/19/18 08:41 20 MG Buspirone HCl (Buspar Tab) 10 mg BID PO 01/16/18 09:00 02/15/18 08:59 01/19/18 08:41 10 MG Hydromorphone HCl (Dilaudid Inj) 0.5 mg Q3H PRN IV 01/16/18 06:15 01/30/18 06:14 01/16/18 18:04 0.5 MG Tramadol HCl (Ultram Tab) 25 mg Q6H PRN PO 01/16/18 06:15 02/15/18 06:14 01/18/18 12:11 25 MG Hydralazine HCl (HydrALAZINE INJ) 5 mg Q6H PRN IV. 01/16/18 19:45 02/15/18 19:44 01/17/18 19:23 5 MG Lisinopril (Zestril Tab) 10 mg DAILY PO 01/18/18 09:00 02/17/18 08:59 01/19/18 08:42 10 MG Oxycodone HCl (Roxicodone Immediate Rel Tab) 5 mg Q4 PRN PO 01/17/18 15:30 01/31/18 15:29 Ergocalciferol (Vitamin D Cap) 50,000 interunit Q7D PO 01/18/18 09:00 02/17/18 08:59 01/18/18 08:20 50,000 INTERUNIT Enoxaparin Sodium (Lovenox Inj) 40 mg QAM SQ 01/18/18 09:00 02/17/18 08:59 01/19/18 08:42 40 MG Acetaminophen (Tylenol Tab) 650 mg Q8 PO 01/18/18 15:15 02/17/18 15:14 01/19/18 22:34 650 MG
[2018-01-19 23:41] VITALS: BP 191/91; PULSE 73; TEMP 37.3; O2SAT 95
[2018-01-20 00:27] VITALS: BP 168/69
[2018-01-20] MEDS: ACETAMINOPHEN 325 MG TAB PO SCH ×3 (05:42→21:25)
[2018-01-20 07:24] VITALS: BP 184/81; PULSE 70; TEMP 36.5; O2SAT 95
--- NOTE | 2018-01-20 07:40 | Orthopedic Progress Note ---
Orthopedic Progress Note Date of Service Jan 20, 2018. Subjective Post OP Day: 3 Reports: feeling well, Denies: complaints, chest pain, SOB, nausea / vomiting, light headedness, calf pain Objective calves soft nontender, N/V intact, splint C/D/I, capillary refill less than 2 sec., toes mobile Toes pink and warm. Splint clean and intact in neutral dorsiflexion. Date Time Temp Pulse Resp B/P (MAP) Pulse Ox O2 Delivery O2 Flow Rate FiO2 01/20/18 07:24 36.5 70 16 184/81 (115) 95 Room Air 01/20/18 00:27 168/69 (102) 01/19/18 23:41 37.3 73 18 191/91 (124) 95 Room Air 01/19/18 23:15 Room Air 01/19/18 15:03 161/81 (107) 01/19/18 15:02 37.4 62 18 182/103 (129) 96 Room Air 01/19/18 15:00 Room Air 01/19/18 08:14 36.6 69 16 148/81 (103) 95 Room Air Assessment & Plan Assessment: POD #3 s/p ORIF Right bimalleolar ankle fracture S/P fall Dementia with intermittent agitation Medical comorbidities Plan: PT/OT as able Ice and elevation 2 pillows R LE NWB R LE Ortho will sign off, please see consult D/C instructions, thank you. Inhouse Planning Pain Management: Dilaudid, Oxy IR DVT Prophylaxis: TEDs, SCDs, Lovenox
[2018-01-20] MEDS: LISINOPRIL 10 MG TAB PO SCH (09:02)
[2018-01-20] MEDS: ESCITALOPRAM OXALATE 20 MG TAB PO SCH (09:02)
[2018-01-20] MEDS: ENOXAPARIN 40 MG/0.4 ML SYR SQ SCH (09:03)
[2018-01-20] MEDS: ALPRAZOLAM 0.5 MG TAB PO SCH (09:05)
[2018-01-20] MEDS ORDERED: LISINOPRIL 20 MG TAB PO SCH (10:00)
[2018-01-20] MEDS: LISINOPRIL/HCTZ 10/12.5MG TAB PO SCH (10:40)
[2018-01-20 10:44] VITALS: BP 151/76; PULSE 71; O2SAT 97
[2018-01-20 12:10] VITALS: BP 152/65; PULSE 72; O2SAT 97
[2018-01-20 15:06] VITALS: BP 177/84; PULSE 76; TEMP 37.1; O2SAT 96
--- NOTE | 2018-01-20 17:34 | Progress Note ---
Medicine Progress Note Date & Time of Visit: Jan 20, 2018 at 14:25. Subjective 87-year-old female status post fall on right side with subsequent bimalleolar fracture of the right lower extremity. She is status post ankle repair and appears to be doing well postoperatively. She is alert and currently disoriented so no history can be obtained. She denies pain after being put on scheduled Tylenol yesterday she is tolerating food. She is currently saying that she is at the [facility] is waiting for her daughter to pick her up. She is unable to follow directions or be reoriented easily. Per nursing staff she is not combative and has been doing well. She has not been requiring one-to- one. Objective Last 8 Hrs Date Time Temp Pulse Resp B/P (MAP) Pulse Ox O2 Delivery O2 Flow Rate FiO2 01/20/18 12:10 72 16 152/65 (94) 97 Room Air 01/20/18 10:44 71 16 151/76 (101) 97 Room Air 01/20/18 08:04 Room Air 01/20/18 07:24 36.5 70 16 184/81 (115) 95 Room Air Physical Exam: GEN: obese, in no acute distress, alert and disoriented, pleasant disposition HEENT: NC/AT, pupils are equal bilaterally, normal sclerae, MMM CARDIO: reg rate, S1/2 heard without m/g/r LUNGS: CTA bilaterally, no crackles, rales or wheezes, good diaphragmatic excursion ABD: soft, non-tender, non-distended, no rebound or guarding, +BS EXTREMITY: RLE: in hard cast, patient cannot follow instructions to wiggle her toes and cannot tell me about sensation, toes are warm to touch, LLE warm and well-perfused without erythema. NEURO: CN 2-12 grossly intact, patient is oriented not able to follow instructions MUSC: generalized weakness appears improved today SKIN: warm and dry and surgical wound as above. Laboratory Results: 01/17/18 04:59 Red Blood Count 3.82, Mean Corpuscular Volume 91.9, Mean Corpuscular Hemoglobin 29.8, Mean Corpuscular Hemoglobin Concent 32.5, Mean Platelet Volume 9.6, Neutrophils (%) (Auto) 67.4, Lymphocytes (%) (Auto) 15.8, Monocytes (%) (Auto) 14.7, Eosinophils (%) (Auto) 0.9, Basophils (%) (Auto) 0.5, Neutrophils # (Auto ) 5.98, Lymphocytes # (Auto) 1.40, Monocytes # (Auto) 1.30, Eosinophils # (Auto ) 0.08, Basophils # (Auto) 0.04 01/19/18 06:24 Test 01/16/18 05:10 01/16/18 06:08 01/16/18 08:59 01/17/18 04:59 Total Bilirubin 0.4 mg/dl (0.2-1) Alanine Aminotransferase (ALT/SGPT) 14 U/L (12-78) Alkaline Phosphatase 61 U/L (45-117) Total Protein 7.6 gm/dl (6.4-8.2) Albumin 3.3 gm/dl (3.4-5.0) Prothrombin Time 10.0 SECONDS (9.0-12.0) Prothromb Time International Ratio 1.0 (0.9-1.1) Activated Partial Thromboplast Time 26.8 SECONDS (21.0-31.0) Partial Thromboplastin Ratio 1.0 Magnesium Level 2.0 mg/dl (1.8-2.4) Direct Bilirubin < 0.1 mg/dl (0-0.2) Aspartate Amino Transf (AST/SGOT) 15 U/L (15-37) Urine Color DK YELLOW Urine Appearance CLEAR (CLEAR) Urine pH 5.5 (4.5-7.5) Urine Specific [place] 1.034 (1.000-1.030) Urine Protein TRACE (NEG) Urine Glucose (UA) NEG (NEG) Urine Ketones TRACE (NEG) Urine Occult Blood NEG (NEG) Urine Nitrite NEG (NEG) Urine Bilirubin NEG (NEG) Urine Urobilinogen NEG (NEG) Urine Leukocyte Esterase NEG (NEG) Urine WBC (Auto) 1-5 /hpf (0-5) Urine RBC (Auto) 0-4 /hpf (0-4) Urine Hyaline Casts (Auto) 1-5 /lpf (0-5) Urine Epithelial Cells (Auto) >30 /lpf (0-5) Urine Bacteria (Auto) NEG (NEG) White Blood Count 8.86 K/uL (4.8-10.8) Red Blood Count 3.82 M/uL (4.2-5.4) Hemoglobin 11.4 g/dL (12.0-16.0) Hematocrit 35.1 % (37-47) Mean Corpuscular Volume 91.9 fL (80-100) Mean Corpuscular Hemoglobin 29.8 pg (25-34) Mean Corpuscular Hemoglobin Concent 32.5 g/dl (32-36) Platelet Count 293 K/uL (130-400) Mean Platelet Volume 9.6 fL (7.4-10.4) Neutrophils (%) (Auto) 67.4 % Lymphocytes (%) (Auto) 15.8 % Monocytes (%) (Auto) 14.7 % Eosinophils (%) (Auto) 0.9 % Basophils (%) (Auto) 0.5 % Neutrophils # (Auto) 5.98 K/uL (1.4-6.5) Lymphocytes # (Auto) 1.40 K/uL (1.2-3.4) Monocytes # (Auto) 1.30 K/uL (0.11-0.59) Eosinophils # (Auto) 0.08 K/uL (0-0.5) Basophils # (Auto) 0.04 K/uL (0-0.2) RDW Standard Deviation 44.5 fL (36.4-46.3) RDW Coefficient of Variation 13.2 % (11.5-14.5) Immature Granulocyte % (Auto) 0.7 % Immature Granulocyte # (Auto) 0.06 K/uL (0.00-0.02) 25-Hydroxy Vitamin D Total 16.7 ng/ml (30-100) Test 01/17/18 15:13 01/19/18 06:24 Bedside Glucose 108 mg/dl (70-90) Anion Gap 8.0 mmol/L (3-11) Est Creatinine Clear Calc Drug Dose 45.7 ml/min Estimated GFR () 68.5 Estimated GFR (Non- 59.1 BUN/Creatinine Ratio 20.4 (10-20) Calcium Level 8.3 mg/dl (8.5-10.1) Assessment & Plan 87-year-old female status post fall on right side with subsequent bimalleolar fracture of the right lower extremity. She is status post ankle repair and appears to be doing well postoperatively. She is alert and currently disoriented so no history can be obtained. She denies pain after being put on scheduled Tylenol yesterday she is tolerating food. [facility] to [facility] her up. She is unable to follow directions or be reoriented easily. Per nursing staff she is not combative and has been doing well. She has not been requiring one-to- one. 1. Right bimalleolar fracture status post mechanical fall-ORIF on 01/17. Postoperative care as directed by orthopedics. Postoperative pain controlled with scheduled Tylenol. Narcotics have been avoided. 2. Vitamin D deficiency-ergocalciferol 50,000 units weekly was started. We will continue this for 12 weeks. 3. Osteoporosis-continue calcium and vitamin D supplementation 4. Dementia-advanced. Patient unable to follow instructions and is very hard of hearing. Continue alprazolam per home regimen to avoid withdrawal symptoms. Avoid oxycodone and alprazolam together. Continue donepezil. 5. History of atrial fibrillation-continue atenolol, patient is high risk for anticoagulation. 6. Hypertension-uncontrolled, restarting HCTZ and combining with lisinopril for decreased pill burden. Cont atenolol. 7. Depression-continue Lexapro. DVT prophylaxis-Lovenox DO NOT RESUSCITATE Disposition-likely to SNF in a.m. [facility] Consultants: Maria De Jesus. Current Inpatient Medications: Current Inpatient Medications Medications (Trade) Dose Ordered Sig/Dotty Route Start Time Stop Time Status Last Admin Dose Admin Atenolol (Tenormin Tab) 25 mg DAILY PO 01/17/18 09:00 02/16/18 08:59 01/20/18 09:02 25 MG Alprazolam (Xanax Tab) 0.25 mg QPM PO 01/16/18 21:00 02/15/18 20:59 01/17/18 20:32 0.25 MG Alprazolam (Xanax Tab) 0.5 mg QAM PO 01/16/18 09:00 02/15/18 08:59 01/20/18 09:05 0.5 MG Donepezil HCl (Aricept Tab) 10 mg HS PO 01/16/18 21:00 02/15/18 20:59 01/19/18 22:33 10 MG Escitalopram Oxalate (Lexapro Tab) 20 mg DAILY PO 01/16/18 09:00 02/15/18 08:59 01/20/18 09:02 20 MG Buspirone HCl (Buspar Tab) 10 mg BID PO 01/16/18 09:00 02/15/18 08:59 01/20/18 08:31 10 MG Hydromorphone HCl (Dilaudid Inj) 0.5 mg Q3H PRN IV 01/16/18 06:15 01/30/18 06:14 01/16/18 18:04 0.5 MG Tramadol HCl (Ultram Tab) 25 mg Q6H PRN PO 01/16/18 06:15 02/15/18 06:14 01/18/18 12:11 25 MG Hydralazine HCl (HydrALAZINE INJ) 5 mg Q6H PRN IV. 01/16/18 19:45 02/15/18 19:44 01/17/18 19:23 5 MG Oxycodone HCl (Roxicodone Immediate Rel Tab) 5 mg Q4 PRN PO 01/17/18 15:30 01/31/18 15:29 Ergocalciferol (Vitamin D Cap) 50,000 interunit Q7D PO 01/18/18 09:00 02/17/18 08:59 01/18/18 08:20 50,000 INTERUNIT Enoxaparin Sodium (Lovenox Inj) 40 mg QAM SQ 01/18/18 09:00 02/17/18 08:59 01/20/18 09:03 40 MG Acetaminophen (Tylenol Tab) 650 mg Q8 PO 01/18/18 15:15 02/17/18 15:14 01/20/18 14:17 650 MG HCTZ/Lisinopril (Prinzide 10-12.5MG Tab) 1 tab QAM PO 01/20/18 10:45 02/19/18 10:44 01/20/18 10:40 1 TAB
[2018-01-20] MEDS: ALPRAZOLAM 0.25 MG TAB PO SCH (21:00)
[2018-01-20] MEDS: DONEPEZIL HCL 10 MG TAB PO SCH (21:24)
[2018-01-20 23:08] VITALS: BP 175/76; PULSE 70; TEMP 36.8; O2SAT 95
[2018-01-21 01:26] VITALS: BP_SYST 189; BP_SYST 203; BP_DIAS 87; BP_DIAS 91; PULSE 74; PULSE 86
[2018-01-21] MEDS: HydrALAZINE HCL 20 MG/ML VIAL IV. PRN (01:30)
[2018-01-21 02:06] VITALS: BP 166/90
[2018-01-21] MEDS: ACETAMINOPHEN 325 MG TAB PO SCH (05:47)
[2018-01-21 07:25] VITALS: BP 182/84; PULSE 71; TEMP 36.4; O2SAT 96
[2018-01-21] MEDS: ESCITALOPRAM OXALATE 20 MG TAB PO SCH (08:51)
[2018-01-21] MEDS: LISINOPRIL/HCTZ 10/12.5MG TAB PO SCH (08:52)
[2018-01-21] MEDS: ALPRAZOLAM 0.5 MG TAB PO SCH (08:53)
[2018-01-21] MEDS: ENOXAPARIN 40 MG/0.4 ML SYR SQ SCH (08:53)
[2018-01-21] MEDS ORDERED: LISINOPRIL 10 MG TAB PO SCH (09:00)
[2018-01-21] MEDS ORDERED: LSN/20125 PO (13:34)
[2018-01-21] MEDS ORDERED: ERGO500011 PO (13:34)
[2018-01-21 13:39] VITALS: BP_SYST 153; BP_SYST 173; BP_DIAS 77; BP_DIAS 86
[2018-01-21] MEDS ORDERED: ASPI81TA28 PO (13:43)
--- NOTE | 2018-01-21 13:46 | Discharge Summary ---
Discharge Summary Date of Service Jan 21, 2018. Discharge Summary Admission Date: Jan 16, 2018 at 05:54 Discharge Date: Jan 21, 2018 Discharge Disposition: longterm facility Consultations: [facility]. Medication Reconciliation New Medications: Hctz/Lisinopril (Zestoretic 20MG/12.5MG) 1 Ea Tab 1 TAB PO DAILY for 30 Days, #30 TAB Ergocalciferol (Vitamin D 19748 Unit) 50,000 Unit Cap 08685 INTERUNIT PO Q7D for 90 Days, #12 CAP Changed Medications: Aspirin (Aspirin Ec) 81 Mg Tab 81 MG PO BID for 30 Days, #60 TAB (Changed from: DAILY) Please take aspirin twice daily x 30 days, then resume once daily dosing. Continued Medications: Acetaminophen (Tylenol) 500 Mg Tab 500-1000 MG PO Q8 PRN for Pain, TAB MAX APAP=3GM/24HRS Alprazolam (Xanax) 0.5 Mg Tab 0.5 MG PO QAM, TAB Alprazolam (Xanax) 0.5 Mg Tab 0.25 MG PO QPM, TAB Atenolol (Tenormin) 25 Mg Tab 25 MG PO DAILY, TAB Buspirone Hcl (Buspirone Hcl) 10 Mg Tab 10 MG PO BID, TAB AM & HS Donepezil Hydrochloride (Aricept) 10 Mg Tab 10 MG PO DAILY TAKE WITH THE LARGEST MEAL OF THE DAY. Escitalopram Oxalate (Lexapro) 20 Mg Tab 20 MG PO DAILY, TAB Discontinued Medications: Acetaminophen (Tylenol) 500 Mg Tab 1000 MG PO QAM, TAB Hydrochlorothiazide (Hydrochlorothiazide) 12.5 Mg Tab 12.5 MG PO DAILY Lisinopril (Zestril) 10 Mg Tab 10 MG PO DAILY, TAB Hospital Course 87-year-old female status post fall on right side with subsequent bimalleolar fracture of the right lower extremity. She is status post ankle repair and appears to be doing well postoperatively. She is alert and currently disoriented so no history can be obtained. She denies pain after being put on scheduled Tylenol yesterday she is tolerating food. [facility]. She is unable to follow directions or be reoriented easily. Per nursing staff she is not combative and has been doing well. She has not been requiring one-to- one. 1. Right bimalleolar fracture status post mechanical fall-ORIF on 01/17. Postoperative care as directed by orthopedics. Postoperative pain controlled with scheduled Tylenol. Narcotics have been avoided. 2. Vitamin D deficiency-ergocalciferol 50,000 units weekly was started. We will continue this for 12 weeks. 3. Osteoporosis-continue calcium and vitamin D supplementation 4. Dementia-advanced. Patient unable to follow instructions and is very hard of hearing. Continue alprazolam per home regimen to avoid withdrawal symptoms. Avoid oxycodone and alprazolam together. Continue donepezil. 5. History of atrial fibrillation-continue atenolol, patient is high risk for anticoagulation. 6. Hypertension-uncontrolled, restarting HCTZ and combining with lisinopril for decreased pill burden. Cont atenolol. 7. Depression-continue Lexapro. DVT prophylaxis-Lovenox DO NOT RESUSCITATE Disposition-likely to SNF in a.. Jo Hernandez DO [facility] hospitalist Total time spent on discharge = 60 minutes This includes examination of the patient, discharge planning, medication reconciliation, and communication with other providers. Discharge Instructions [address] [address] Discharge Medical Patient Name: Rosita Ingram Unit Number: [id number] Date of : 1930 Patient Status: Admitted Inpatient Attending Doctor: Jo Hernandez DO DI: Medical v5 Discharge Instructions Date of Service Jan 21, 2018. Admission Reason for Admission: Bimalleolar Fracture Of Right Ankle Discharge Discharge Diagnosis / Problem: Bimalleolar fracture of R ankle Discharge Goals Goal(s): Prevent Disease Progression Activity Recommendations Activity Limitations: per Instructions/Follow-up section . Instructions / Follow-Up Instructions / Follow-Up Please take all medications as instructed. You will need to follow all post-operative instructions including staying off your R leg (non-weight bearing) for the next 4-6 weeks. [facility] to make a follow-up appointment when you arrive at receiving facility. You will need aspirin therapy twice daily for postoperative blood clot prophylaxis for the next 30 days. After 30 days please resume once daily dosing. It is recommended that he follow-up with primary care doctor within 1 week for follow-up with his hospitalization. Please note you have been started on a new higher dose of blood pressure medication which will require monitoring of her blood pressure at least daily and repeat blood work in 2 weeks. Recommend basic metabolic panel to be drawn in 2 weeks and results sent to your primary care doctor. You have been placed on weekly vitamin D supplement for the next 3 months. You should not need refills but this may be need to be reassessed by your primary care doctor. It was a pleasure taking care of you! Call if you have any questions or problems. You can reach a [facility] hospitalist on duty at [facility] 24 hours a day by calling [phone]. Take care of yourself. Jo Hernandez DO [facility] Hospitalist Current Hospital Diet Patient's current hospital diet: AHA Diet (Heart Healthy) Discharge Diet Recommended Diet: AHA Diet (Heart Healthy) Procedures Procedures Performed: Right Open Reduction Internal Fixation Bimalleolar ankle fracture Pending Studies Studies pending at discharge: no Medical Emergencies . Who to Call and When: Medical Emergencies: If at any time you feel your situation is an emergency, please call [phone] immediately. . Non-Emergent Contact Non-Emergency issues call your: Primary Care Provider . . "Provider Documentation" section prepared by Jo Hernandez. . Paper Pattern Folder Recommendations Paper Pattern Folder Recommendations: ACTIVITY RECOMMENDATIONS: * You will be NON WEIGHTBEARING on the right foot for 4-6 weeks. Use a walker to to help with ambulation. SPECIAL CARE INSTRUCTIONS: * Some drainage onto the dressing is normal and is no cause for alarm. * Some swelling is natural especially after walking. When resting, keep your foot elevated above the level of your heart. * Call the doctor's office at if you notice increased drainage, fever over 101 degrees F. or severe constant pain. BANDAGE: * Leave bandage/cast in place unless otherwise directed. * Keep bandage/cast dry at all times. FOLLOW UP VISIT: If appointment is not already scheduled: Please call [facility] to make a follow-up appointment after your surgery at . Additional Copies To Josselyn REARDON M.D.
[2018-01-21 14:51] VITALS: BP 153/77; PULSE 71; TEMP 36.4; O2SAT 96
[2018-01-21] MEDS ORDERED: ALPR0.5T PO (16:05)
== END 2018-01-21 15:05 | DRG 493 ==
LOC: C.EDB 03:18 → C.MSW 05:54 → EDBEDREQ 05:57 → ENRESERV 06:16 → C.MSN 01-19 13:59
PROVIDERS: ADMIT Hospitalist; ATTEND Hospitalist
PROC: 0QSJ04Z Reposition Right Fibula with Internal Fixation Device, Open Approach (ICD-10-PCS; principal; 2018-01-17 06:45)
PROC: 0QSG04Z Reposition Right Tibia with Internal Fixation Device, Open Approach (ICD-10-PCS; principal; 2018-01-17 06:45)
DX: S82.841A Displaced bimalleolar fracture of right lower leg, initial encounter for closed fracture (principal); F03.91 Unspecified dementia, unspecified severity, with behavioral disturbance; N17.9 Acute kidney failure, unspecified; I16.0 Hypertensive urgency; E87.6 Hypokalemia; T50.2X5A Adverse effect of carbonic-anhydrase inhibitors, benzothiadiazides and other diuretics, initial encounter; E55.9 Vitamin D deficiency, unspecified; Z91.19 Patient's noncompliance with other medical treatment and regimen; I48.91 Unspecified atrial fibrillation; E11.22 Type 2 diabetes mellitus with diabetic chronic kidney disease; I12.9 Hypertensive chronic kidney disease with stage 1 through stage 4 chronic kidney disease, or unspecified chronic kidney disease; N18.3 Chronic kidney disease, stage 3 (moderate); F32.9 Major depressive disorder, single episode, unspecified; M81.0 Age-related osteoporosis without current pathological fracture; H91.90 Unspecified hearing loss, unspecified ear; E66.9 Obesity, unspecified; Z51.81 Encounter for therapeutic drug level monitoring; Z79.899 Other long term (current) drug therapy; Z79.82 Long term (current) use of aspirin; Z91.81 History of falling; Z66 Do not resuscitate; Z68.34 Body mass index [BMI] 34.0-34.9, adult; Z87.891 Personal history of nicotine dependence; Z83.3 Family history of diabetes mellitus; Z82.49 Family history of ischemic heart disease and other diseases of the circulatory system; V48.9XXA Unspecified car occupant injured in noncollision transport accident in traffic accident, initial encounter; Y99.8 Other external cause status